=== PATIENT | female | born 1990 | race Two or more races ===

== ENCOUNTER → 2021-04-12 11:42 | Outpatient (CLI) | payer OTHER, SELFPAY ==
[2021-04-12 10:34] VITALS: BMI 34.0
[2021-04-12 12:18] LABS: Amphetamine Urine VISTA NEGATIVE (<1000 ng/mL); Barbiturate Urine VISTA NEGATIVE (< 200 ng/mL); Benzodiazepine Urine VISTA NEGATIVE (< 200 ng/mL); Cocaine Urine VISTA NEGATIVE (< 300 ng/mL); Ecstacy Urine VISTA NEGATIVE (< 500 ng/mL); Methadone Urine VISTA NEGATIVE (< 300 ng/mL); PCP Urine VISTA NEGATIVE (< 25 ng/mL); THC Urine VISTA NEGATIVE (< 50 ng/mL); Vista UDS pH Range 5
[2021-04-13 20:10] LABS: Chlamydia By Nucleic Acid AMP Negative (Negative)
[2021-04-14 15:00] LABS: Gonococcus By Nucleic Acid AMP Negative (Negative)
== END ==
PROVIDERS: Visit Provider Obstetrics & Gynecology
DX: Z34.00 Encounter for supervision of normal first pregnancy, unspecified trimester (principal)
CPT/HCPCS: 80307; 87086; 87088; 87491; 87591

== ENCOUNTER → 2021-04-23 07:37 | Outpatient (CLI) | payer OTHER, SELFPAY ==
[2021-04-12 10:34] VITALS: BMI 34.0
[2021-04-23 08:05] LABS: Absolute Lymphocyte Count 2.05 X10^3/uL (0.83-4.51); Absolute Neutrophil Count 7.5 X10^3/uL (2.0-7.7); Basophil# 0.03 X10^3/uL; Basophil% 0.3 % (0-1); Eosinophil# 0.09 X10^3/uL; Eosinophils% 0.9 % (0-5); Hematocrit 40.5 % (37-47); Hemoglobin 13.6 g/dL (12.0-15.0); Lymphocyte # 2.05 X10^3/ul (0.83-4.51); Lymphocyte % 19.9 % (19-41); Mean Corp Hgb Conc 33.6 g/dL (32-36); Mean Corpuscular Hgb 30.6 pg (27.0-32.0); Mean Corpuscular Volume 91.2 fL (81-99); Mean Platelet Vol. 9.6 fl (6.2-12.0); Monocyte# 0.55 X10^3/uL; Monocyte% 5.3 % (0-10); NRBC Flagged by Analyzer 0 % (0-5); Neutrophil # 7.52 X10^3/uL (2.7-7.7); Platelet Count 339 K/mm3 (150-450); RBC Distribution Width CV 12.1 % (11.6-14.6); RBC Distribution Width SD 40.6 fl (35.1-43.9); Red Blood Count 4.44 M/mm3 (4.2-5.4); White Blood Count 10.3 K/mm3 (4.4-11.0)
[2021-04-23 08:25] LABS: Glucose Challenge Gest 1H 50g 72 mg/dL (70-140)
[2021-04-23 08:56] LABS: NATERA MAILED SPECIMEN
[2021-04-23 09:20] LABS: HIV - WCH Non-Reactive (Nonreactive); Hepatitis B Surface Antigen Non-Reactive (Nonreactive); Hepatitis C Antibody Non-Reactive (Nonreactive); Rubella IgG Reactive (Nonreactive); Syphilis Antibodies Non-reactive
== END ==
PROVIDERS: PCP Family Medicine; Referring Provider Obstetrics & Gynecology; Visit Provider Obstetrics & Gynecology
DX: O99.210 Obesity complicating pregnancy, unspecified trimester (principal); E66.9 Obesity, unspecified; Z3A.00 Weeks of gestation of pregnancy not specified
CPT/HCPCS: 36415; 82950; 85025; 86703; 86762; 86780; 86803; 86850; 86900; 86901; 87340

== ENCOUNTER → 2021-08-06 07:51 | Outpatient (CLI) | payer OTHER, SELFPAY ==
[2021-08-06 08:17] LABS: Absolute Lymphocyte Count 1.79 X10^3/uL (0.83-4.51); Absolute Neutrophil Count 10.6 X10^3/uL (2.0-7.7); Basophil# 0.04 X10^3/uL; Basophil% 0.3 % (0-1); Eosinophil# 0.08 X10^3/uL; Eosinophils% 0.6 % (0-5); Hematocrit 34.2 % (37-47); Hemoglobin 11.7 g/dL (12.0-15.0); Lymphocyte # 1.79 X10^3/ul (0.83-4.51); Lymphocyte % 13.4 % (19-41); Mean Corp Hgb Conc 34.2 g/dL (32-36); Mean Corpuscular Hgb 31.3 pg (27.0-32.0); Mean Corpuscular Volume 91.4 fL (81-99); Mean Platelet Vol. 9.5 fl (6.2-12.0); Monocyte# 0.72 X10^3/uL; Monocyte% 5.4 % (0-10); NRBC Flagged by Analyzer 0 % (0-5); Neutrophil % 79.5 % (47-70); Platelet Count 358 K/mm3 (150-450); RBC Distribution Width CV 12.5 % (11.6-14.6); RBC Distribution Width SD 41.2 fl (35.1-43.9); Red Blood Count 3.74 M/mm3 (4.2-5.4); White Blood Count 13.3 K/mm3 (4.4-11.0)
[2021-08-06 08:45] LABS: Glucose Challenge Gest 1H 50g 81 mg/dL (70-140)
== END ==
PROVIDERS: PCP Family Medicine; Referring Provider Obstetrics & Gynecology; Visit Provider Obstetrics & Gynecology
DX: Z34.92 Encounter for supervision of normal pregnancy, unspecified, second trimester (principal); Z13.1 Encounter for screening for diabetes mellitus
CPT/HCPCS: 36415; 82950; 85025

== ENCOUNTER → 2021-09-27 07:57 | Outpatient (CLI) | payer OTHER, SELFPAY ==
--- NOTE | 2021-09-27 08:00 | US_ITS ---
STUDY: SECOND AND THIRD TRIMESTER OBSTETRICAL ULTRASOUND - LIMITED REASON FOR EXAM: Female, 30 years old uterine date size discrepancy LMP: 02/02/2021 PRIOR ULTRASOUND: None. TECHNIQUE: Transabdominal TECHNICAL QUALITY: Adequate. FINDINGS: There is a single intrauterine fetus. The fetus is in a breech presentation. There is demonstrated cardiac activity with a heart rate of 178 bpm. There is a normal amniotic fluid volume. The largest amniotic fluid pocket measures 7.4 cm. The amniotic fluid index (EDYTA) is 18.9 cm. The placenta is fundal in location. There are Grade 1 placental changes. The cervix measures 4.6 cm cm in length. BIOMETRY: BPD: 8.5 cm: 34 weeks, 2 days HC: 32.2 cm: 36 weeks, 2 days AC: 31.6 cm: 35 weeks, 3 days FL: 6.6 cm: 34 weeks, 1 days Age by LMP: 33 weeks, 6 days. CELY by LMP: 11/09/2021. age by current US: 35 weeks, 4 days. CELY by current US: 10/28/2021. Estimated weight: 2582 grams, +/- 387 grams, 78 percentile. Gender: US/OB Limited With Biometrics IMPRESSION: Living intrauterine of 35 weeks 4 days as described above Electronically Signed: Ari Ulloa MD at 9:13 EST Tel , Service support ,
== END ==
PROVIDERS: PCP Family Medicine; Referring Provider Obstetrics & Gynecology; Visit Provider Obstetrics & Gynecology
DX: O26.843 Uterine size-date discrepancy, third trimester (principal); Z3A.35 35 weeks gestation of pregnancy
CPT/HCPCS: 76816

== ENCOUNTER 2021-10-15 17:31 | Outpatient (CLI) | payer BC, SELFPAY | END 2021-10-15 23:59 | disposition short-term general hospital (02) | PROVIDERS: PCP Family Medicine; Referring Provider Obstetrics & Gynecology; Visit Provider Obstetrics & Gynecology | DX: Z34.01 Encounter for supervision of normal first pregnancy, first trimester (principal) | CPT/HCPCS: 87081 ==

== ENCOUNTER 2021-11-15 18:45 | Inpatient (IN) | payer BC, SELFPAY ==
[2021-11-15 19:15] VITALS: TEMP 36.2
[2021-11-15 19:19] VITALS: BP 143/81; PULSE 95
[2021-11-15 19:20] VITALS: BMI 39.4
[2021-11-15] MEDS: Lactated Ringers 1,000 ML 50 ML IV (19:27)
--- NOTE | 2021-11-15 19:50 | HP.PCM.OB_ITS ---
HPI - General General Date of Admission: 11/15/21 HPI Narrative MYLES MCCANN, is a 30 F who presents forIOL sec to postdates. she has had an uncomplicated with no vb lof admits good fm no regular ctx. Maternal Data Information CELY Calculator Estimated Delivery Date Method Current WG Current Estimate 11/09/21 LMP (Certain) 40w 6d Other Estimates 11/10/21 Ultrasound #1 40w 5d PFSH PFSH Medical History (Updated 11/15/21 @ 19:[address] Adry Ponce MD) Headache Home Medications prenat.vits,veronique,wxr-cxaz-[id number] 1 tab PO DAILY 03/30/21 [History Last Taken 11/15/21] Allergy/AdvReac Type Severity Reaction Status Date / Time No Known Allergies Allergy Verified 11/12/21 09:19 Family History Grandfather CVA (cerebral vascular accident) Surgical History (Updated 11/15/21 @ 19:34 by Kimberly Park) Previous back surgery [place] teeth extracted Social History household members: spouse number of children: 0 current occupational status: employed current occupation: [employer]fund[employer] pets and animals: Yes pets and animals: dog(s) Smoking Status: Never smoker alcohol intake: current details: not while substance use type: does not use History 1 Elective abortions Hx Para 0 Spontaneous abortions Hx # Term Pregnancies Ectopic pregnancies Hx # Pregnancies Multiple births # of living children Visit Details Expected Delivery Route/Plan Labor Preferences- CB/BF classes: september labor support person: Keanu labor intervention preferences: limited intervention pain management options preferred: limited intervention cut cord/dad catch: yes : yes PP control planned: discussed/pill discussed possible routes of delivery and associated risks: [] special requests: [] Plans covid vaccine: vaccinated flu vaccine: given tdap vaccine: given rhogam: na LARC form signed: declined movement and labor precautions reviewed. Problem list reviewed and updated with the most current plan of care details and appropriate orders placed. Relevant counseling for the gestational age provided. Continue routine care and follow up unless otherwise noted in visit notes/problem list details OB Flowsheet Initial Weight: 180 lb Date -?-?-?-?-?-?-?-?-?-?-?-?- EGA Weight BP Urine Prot -?-?-?-?-?-?-?-?-?-?-?-?- Glucose FHR FuHt Pres Dilation -?-?-?-?-?-?-?-?-?-?-?-?- Effaced St Visit Note 04/12/21 -?-?-?-?-?-?-?-?-?-?-?-?- 9w 6d 180 lb 2 oz (+2 oz) 120/82 -?-?-?-?-?-?-?-?-?-?-?-?- 180 -?-?-?-?-?-?-?-?-?-?-?-?- GP - CRL consist ent with LMP and prior US 05/10/21 -?-?-?-?-?-?-?-?-?-?-?-?- 13w 6d 180 lb 2 oz (+2 oz) 136/92 Negative -?-?-?-?-?-?-?-?-?-?-?-?- Negative 155 -?-?-?-?-?-?-?-?-?-?-?-?- GP - no cramping or bleeding. Had migraine. Also having increased nausea. Prescribed phenergan. Discussed magnesium supplement 06/11/21 -?-?-?-?-?-?-?-?-?-?-?-?- 18w 3d 183 lb 6 oz (+3 lb 6 oz) 132/92 Negative -?-?-?-?-?-?-?-?-?-?-?-?- Negative 150 -?-?-?-?-?-?-?-?-?-?-?-?- GP - no cramping or bleeding. +FM. Anatomy scheduled with MFM. 07/08/21 -?-?-?-?-?-?-?-?-?-?-?-?- 22w 2d 183 lb (+3 lb) 120/86 Negative -?-?-?-?-?-?-?-?-?-?-?-?- Negative 150 -?-?-?-?-?-?-?-?-?-?-?-?- SM- been checkin g bps at home and WNL. no cHTN. has lowered salt in her diet. 08/06/21 -?-?-?-?-?-?-?-?-?-?-?-?- 26w 3d 188 lb (+8 lb) 122/78 -?-?-?-?-?-?-?-?-?-?-?-?- 140 26 -?-?-?-?-?-?-?-?-?-?-?-?- SM- no vb lof go od fm n oregular ctx cbc gct tdap flu vaccine today 09/03/21 -?-?-?-?-?-?-?-?-?-?-?-?- 30w 3d 196 lb 6 oz (+16 lb 6 oz) 136/80 Negative -?--?-?-?-?-?-?-?-?-?-?-?- Negative 143 31 -?-?-?-?-?-?-?-?-?-?-?-?- JV- no lof, vagi nal bleeding, cramping, or dec fm. Some pubic bone pain. Has small umbilical hernia with likely small amount of fat. pt reassured. 09/17/21 -?-?-?-?-?-?-?-?-?-?-?-?- 32w 3d 198 lb 2 oz (+18 lb 2 oz) 118/68 Negative -?--?-?-?-?-?-?-?-?-?-?-?- Negative 140 35 -?-?-?-?-?-?-?-?-?-?-?-?- SM- no vb lof go od fm no regular ctx growth us ordered to evaluate 09/29/21 -?-?-?-?--?-?-?-?-?-?-?-?- 34w 1d 197 lb 6 oz (+17 lb 6 oz) 126/80 Negative -?-?-?-?-?-?-?-?-?-?-?-?- Negative 154 35 Breech -?-?-?-?-?-?--?-?-?-?-?-?- MH-Good FM. No LOF, VB. No CTX. Still breech/confirmed per US 09/27. Normal growth at 70%. If CS would like 11/23/21. Can discuss with JV next visit. 10/15/21 -?-?-?-?-?-?-?-?-?-?-?-?- 36w 3d 202 lb (+22 lb) 130/88 Negative -?-?-?-?-?-?-?-?-?-?-?-?- Negative 145 36 Transverse -?-?-?-?-?-?-?-?-?-?-?-?- JV- no lof, vagi nal bleeding, or dec fm. GBS collected. 10/22/21 -?-?-?-?-?-?-?-?-?-?-?-?- 37w 3d 200 lb 4 oz (+20 lb 4 oz) 120/78 Negative -?-?-?-?-?-?-?-?-?-?-?-?- Negative 154 37 Cephalic -?-?-?-?-?-?-?-?-?-?-?-?- JV- no lof, vagi nal bleeding, or dec fm. will check again next visit with bedside us 10/29/21 -?-?-?-?-?-?-?-?-?-?-?-?- 38w 3d 203 lb (+23 lb) 130/78 Negative -?-?-?-?-?-?-?-?-?-?-?-?- Negative 145 38 Cephalic -?-?-?-?-?-?-?-?-?-?-?-?- Sm- no vb lof go od fm nor egular ctx 11/05/21 -?-?-?-?-?-?-?-?-?-?-?-?- 39w 3d 201 lb 2 oz (+21 lb 2 oz) 120/82 Negative -?-?-?-?-?-?-?-?-?-?-?-?- Negative 140 39 Cephalic -?-?-?-?-?-?-?-?-?-?-?-?- SM- no vb lof go od fm no regular ctx 11/12/21 -?-?-?-?-?-?-?-?-?-?-?-?- 40w 3d 204 lb 4 oz (+24 lb 4 oz) 117/79 Negative -?-?-?-?-?-?-?-?-?-?-?-?- Negative 134 40 Cephalic 0 -?-?-?-?-?-?-?-?-?-?-?-?- 50 -3 JV- head position was a bit off midline, however when the baby was shifted to the left the head was immediately vtx. setting up IOL for monday night .if converts to transverse, pt understands will need section. 11/15/21 -?-?-?-?-?-?-?-?-?-?-?-?- 40w 6d 209 lb (+29 lb) 143/81 -?-?-?-?-?-?-?-?-?-?-?-?- -?-?-?-?-?-?-?-?-?-?-?-?- NST FHR Rate Baby A Baseline: 130 Variability:: Moderate Accelerations:: 15 x 15 Decelerations:: None NST Reactive:: Yes FHR Category:: Category I Uterine Activity:: irregular ROS Constitutional Constitutional: Reports systems reviewed and no addt'l complaints, except as documented Eyes Eyes: Denies change in vision ENT HEENT: Reports systems reviewed and no addt'l complaints, except as documented; Denies headache(s) Cardiovascular Cardiovascular: Reports systems reviewed and no addt'l complaints, except as documented; Denies chest pain or dyspnea Respiratory/Chest Respiratory/Chest: Reports systems reviewed and no addt'l complaints, except as documented Gastrointestinal Gastrointestinal: Reports systems reviewed and no addt'l complaints, except as documented; Denies abdominal pain Genitourinary Genitourinary: Reports systems reviewed and no addt'l complaints, except as documented, contractions Details: present (irregular) and movement Details: present; Denies dysuria or genital lesions Musculoskeletal Musculoskeletal: Reports systems reviewed and no addt'l complaints, except as documented Neurologic Neurologic: Reports systems reviewed and no addt'l complaints, except as documented Endocrine Endocrinology: Reports systems reviewed and no addt'l complaints, except as documented Vital Signs Vital Signs Vital Signs: 11/15/21 19:15 11/15/21 19:19 Temperature 97.1 F L Temperature Source Temporal Pulse Rate 95 Blood Pressure 143/81 H BP Systolic 143 BP Diastolic 81 Weight Weight: 209 lb Body Mass Index (BMI) 39.4 Physical Exam Const alert, oriented x3, no apparent distress and healthy appearing HEENT normocephalic and moist oral mucous membranes Head and Scalp: atraumatic Neck full ROM, no lymphadenopathy, supple and thyroid normal General: trachea midline Lymph Lymphatic: no lymphadenopathy noted Chest inspection of chest normal Resp normal respiratory effort Cardio regular rate GI normal to inspection, nondistended, normoactive bowel sounds, soft to palpation and non-tender Inspection: gravid external exam normal Manual OB Exam: estimated gestational size appropriate, presentation cephalic, dilated, effaced and station Extremity normal to inspection General Extremity: Negative for edema Skin no rashes or lesions noted Neuro no focal motor deficits and deep tendon reflexes 2+ bilaterally Motor Exam: strength 5/5 throughout and clonus absent Psych mental status grossly normal Labs Labs Labs: Blood Type AB POSITIVE Antibody Screen NEGATIVE Hct 34.2 % (37-47) L Hgb 11.7 g/dL (12.0-15.0) L Obstetrics US Syphilis Total Ab Non-reactive Rubella IgG Antibody Reactive (Nonreactive) Hep Bs Antigen Non-Reactive (Nonreactive) Neisseria gonorrhoeae DNA (JONN) Negative (Negative) HIV 1&2 Antibody Non-Reactive (Nonreactive) Glucose 1 Hr 50 gm 81 mg/dL (70-140) Assessment & Plan (1) : QUALIFIERS: Weeks of gestation: 40 weeks Qualified Code(s): Z3A.40 - 40 weeks gestation of COMMENT: NIPT low risk, carrier neg , anatomy nl repeat heart views nl (2) Supervision of normal first : QUALIFIERS: Trimester: first trimester Qualified Code(s): Z34.01 - Encounter for supervision of normal first , first trimester COMMENT: PRR CELY:11/09/21 girl [place] Spouse:Keanu (3) Hx of spinal fusion: COMMENT: L5 fusion due to herniated disc; If CS will she need anesthesia consult? (4) Uterine size date discrepancy: COMMENT: growth normal on 09/27/21 (5) Encounter for induction of labor: COMMENT: cytotec IOL, epi PRN. pit per protocol after cytotec
[2021-11-15 20:12] LABS: Absolute Lymphocyte Count 2.28 X10^3/uL (0.83-4.51); Absolute Neutrophil Count 9.7 X10^3/uL (2.0-7.7); Basophil# 0.05 X10^3/uL; Basophil% 0.4 % (0-1); Eosinophil# 0.05 X10^3/uL; Eosinophils% 0.4 % (0-5); Hematocrit 35.9 % (37-47); Hemoglobin 12.2 g/dL (12.0-15.0); Lymphocyte # 2.28 X10^3/ul (0.83-4.51); Lymphocyte % 17.7 % (19-41); Mean Corpuscular Hgb 30.5 pg (27.0-32.0); Mean Corpuscular Volume 89.8 fL (81-99); Mean Platelet Vol. 10.9 fl (6.2-12.0); Monocyte% 5.4 % (0-10); NRBC Flagged by Analyzer 0 % (0-5); Neutrophil # 9.67 X10^3/uL (2.7-7.7); Neutrophil % 75.3 % (47-70); Platelet Count 323 K/mm3 (150-450); RBC Distribution Width CV 13.6 % (11.6-14.6); RBC Distribution Width SD 44.4 fl (35.1-43.9); White Blood Count 12.9 K/mm3 (4.4-11.0)
[2021-11-15 20:28] VITALS: BP 134/87; PULSE 88; O2SAT 97
[2021-11-15] MEDS: miSOPROStol 25 MCG TABLET VAGINAL (20:28)
[2021-11-15 20:29] VITALS: TEMP 36.2
[2021-11-15] MEDS: DiphenhydrAMINE 25 MG Capsule PO (20:38)
[2021-11-15] MEDS: Acetaminophen 500 MG Tablet PO (20:38)
[2021-11-15 20:54] LABS: ALB/GLOB Ratio 0.7 RATIO (0.9-2.4); AST(SGOT) 15 U/L (15-37); Alanine Aminotransfer ALT/SGPT 12 U/L (13-56); Albumin, Serum 2.5 g/dL (3.2-5.0); Alkaline Phosphatase 208 U/L (45-117); Anion Gap 8 (5-15); BUN 9 mg/dL (7-18); BUN/Creat Ratio 17.3 RATIO (10-20); Calcium,Total 8.8 mg/dL (8.5-10.1); Chloride 108 mmol/L (98-107); Creatinine, Serum 0.52 mg/dL (0.55-1.02); EST Glomerular Filtration Rate 148 mL/min (>60); Est Glom Filt Rate - Afr Amer 179 mL/min (>60); Estimated Creatinine Clearance 121.54 ml/min; Globulin 3.7 g/dL (2.2-4.2); Glucose 116 mg/dL (74-106); Potassium 3.5 mmol/L (3.5-5.1); Protein, Total 6.2 g/dL (6.4-8.2); Sodium Level 138 mmol/L (136-145)
[2021-11-16] VITALS (92 sets, daily range): BP systolic 76–139; BP diastolic 46–90; PULSE 68–146; RESP 20; TEMP 36.2–37.6; O2SAT 83–100
[2021-11-16] MEDS: miSOPROStol 25 MCG TABLET 50 MCG VAGINAL (00:34)
[2021-11-16 04:26] LABS: ROM Internal Control Test YES-OK TO RESULT pt. (Internal QC)
[2021-11-16 04:27] LABS: ROM Patient Test POSITIVE (Negative)
[2021-11-16] MEDS: 0.9% Saline Lock 10 ML Syringe IV (05:22)
[2021-11-16] MEDS: Lactated Ringers 500 ML 999 ML IV ×8 (05:47→20:22)
[2021-11-16] MEDS: fentaNYL 100 MCG/2 ML Ampul IV ×2 (06:58→11:45)
[2021-11-16] MEDS: Lactated Ringers 1,000 ML 200 ML IV ×2 (12:01→18:06)
[2021-11-16] MEDS: Amnioinfusion- 0.9% NS 1,000 ML IV.SOLN. 1000 ML INTRA-UTER (12:24)
[2021-11-16] MEDS: ePHEDrine Sulfate 50 MG/ML Ampul 10 MG IV (13:25)
[2021-11-16] MEDS: ePHEDrine Sulfate 50 MG/ML Ampul 10 MG IM (13:25)
[2021-11-16] MEDS: fentaNYL-bupivacaine (epidural) 100 ML BAG EPIDURAL ×3 (13:32→21:55)
--- NOTE | 2021-11-16 16:04 | PN.OBGYN_ITS ---
Subjective Subjective Discussed starting Pitocin due to stalling of labor progress and patient comfortable with epidural. Previously reassuring heart rate tracing. Now heart rate tracing developing recurrent late decelerations with rising baseline. Patient has received IV fluid boluses well give oxygen and do position changes. Has received amnioinfusion. resolution of decels with interventions and will start pitocin afterwards. Objective Data Objective Data Vital Signs: Vital Signs Temp Pulse BP Pulse Ox 98.3 F 112 H 112/62 99 11/16/21 15:13 11/16/21 15:13 11/16/21 15:13 11/16/21 15:11 Weight: 209 lb Body Mass Index (BMI) 39.4 Intake & Output: Intake and Output for Last 24 Hours 11/14/21 11/15/21 11/16/21 23:59 23:59 23:59 Intake Total 51.67 / 51.67 4089.17 / 4089.17 Balance 51.67 / 51.67 4089.17 / 4089.17 Lab / Micro Data Result Diagrams: 11/15/21 19:27 11/15/21 19:27 Labs: Laboratory Results - last 24 hr 11/15/21 19:27: WBC 12.9 H, RBC 4.00 L, Hgb 12.2, Hct 35.9 L, MCV 89.8, MCH 30.5, MCHC 34.0, RDW Std Deviation 44.4 H, RDW Coeff of Patrice 13.6, Plt Count 323, MPV 10.9, Immature Gran % (Auto) 0.800, Neut % (Auto) 75.3 H, Lymph % (Auto) 17.7 L, [place] % (Auto) 5.4, Eos % (Auto) 0.4, Baso % (Auto) 0.4, Absolute Neuts (auto) 9.7 H, Absolute Lymphs (auto) 2.28, Nucleated RBC % 0 11/15/21 19:27: Blood Type AB POSITIVE, Antibody Screen NEGATIVE 11/15/21 19:27: Sodium 138, Potassium 3.5, Chloride 108 H, Carbon Dioxide 22.0, Anion Gap 8, BUN 9, Creatinine 0.52 L, Estim Creat Clear Calc 121.54, Est GFR (MDRD) Af Amer 179, Est GFR (MDRD) Non-Af 148, BUN/Creatinine Ratio 17.3, Glucose 116 H, Calcium 8.8, Total Bilirubin 0.20, AST 15, ALT 12 L, Alkaline Phosphatase 208 H, Total Protein 6.2 L, Albumin 2.5 L, Globulin 3.7, Albumin/Globulin Ratio 0.7 L 11/16/21 04:12: Vag Amniotic Fld Detect POSITIVE H Micro: Microbiology 11/15/21 19:35 Nasal Secretion SARS-CoV-2 Antigen (Rapid) - Final
[2021-11-16] MEDS: Oxytocin 30 units/NS 500 ml 30 UNITS/500 ML IV.SOLN IV (18:17)
--- NOTE | 2021-11-16 22:49 | PN.OBGYN_ITS ---
Subjective Subjective Patient requesting to proceed with primary . No cervical change for over 6 hours. Pitocin has been on and has been able to be increased but still now further cervical change. Patient was 5 cm as of 8 AM this morning and 6 cm as of this afternoon and has not made any changes since. It was discussed expec tant management versus proceeding with primary and patient wishes to proceed with primary . I suspect cephalopelvic disproportion and would recommend repeat section for any future deliveries. Objective Data Objective Data Vital Signs: Vital Signs Temp Pulse BP Pulse Ox 98.3 F 111 H 111/59 L 98 11/16/21 19:36 11/16/21 22:02 11/16/21 22:02 11/16/21 22:00 Weight: 209 lb Body Mass Index (BMI) 39.4 Intake & Output: Intake and Output for Last 24 Hours 11/14/21 11/15/21 11/16/21 23:59 23:59 23:59 Intake Total 51.67 / 51.67 6184.90 / 6184.90 Output Total 2225 / 2225 Balance 51.67 / 51.67 3959.90 / 3959.90 Lab / Micro Data Result Diagrams: 11/15/21 19:27 11/15/21 19:27 Labs: Laboratory Results - last 24 hr 11/16/21 04:12: Vag Amniotic Fld Detect POSITIVE H Micro: Microbiology 11/15/21 19:35 Nasal Secretion SARS-CoV-2 Antigen (Rapid) - Final
--- NOTE | 2021-11-16 22:52 | EX.PCM.OBRPT ---
Maternal Data Information CELY Calculator Estimated Delivery Date Method Current WG Current Estimate 11/09/21 LMP (Certain) 41w 0d Other Estimates 11/10/21 Ultrasound #1 40w 6d Final CELY Source: LMP Gestational age: 39 Details Operative Information Date of Procedure: 11/16/21 Pre-Operative Diagnosis: failure to progress Post-Operative Diagnosis: same Indications for : Failure to Progress (6 cm -3 station) Procedure Type: low transverse Type of Anesthesia: Epidural Special Medications: none Drain: Avenda[place] to straight drain Fluids Replaced: crystalloid Findings Description of Procedure: The patient was placed in the dorsal supine position with leftward tilt. Patient was prepped and draped in the normal sterile fashion. Pfannenstiel skin incision was made with the scalpel and carried through to the underlying layer of fascia with the scalpel. Fascia was nicked in the midline and the incision extended laterally. The rectus bellies were dissected off superiorly and inferiorly with out complication both sharply and bluntly. The peritoneum was entered digitally. The incision was stretched and a low transverse uterine incision was made with the scalpel. The 's head was delivered atraumatically followed by the anterior and posterior shoulders without complication the rest of the delivered. The cord was clamped and cut and the was handed off to awaiting nurse. The placenta was delivered spontaneously immediately following and was noted to be intact and have a three-vessel cord. The uterus was exteriorized cleared of all clots and debris, and the incision was closed in a double layer closure using #1 Monocryl. The ovaries and fallopian tubes were noted to be within normal limits. The uterus was returned to the maternal abdomen and gutters were cleared of all clots and debris. The peritoneum was closed with 3-0 Monocryl in a running fashion. Gloves were changed prior to fascial closure. Fascia was closed with 0 PDS in a running fashion. Subcutaneous tissue was copiously irrigated and the skin was closed with 3-0 Monocryl in a subcuticular fashion. Mepilex dressing was applied without complication. Patient was taken to recovery in stable condition. It was discussed with the patient that based on the clinical information obtained during this encounter, combined with her history, at this time I would recommend cesareans for future deliveries if further pregnancies are desired. Amniotic Membrane Rupture Type: Artificial Amniotic Fluid Description: Clear Placental Delivery Description: Spontaneous Placenta Disposition: [facility] Cord Vessel Description: 3 Vessels Cord Entanglement: None Delayed Cord Clamping: Yes Complications Risks of Surgery Discussed w/Patient: Bleeding, Infection, Need for Future C-Sections and Injury to surrounding structure(s) including bowel and bladder Complications: none Admit VTE Documentation VTE Present on Admission: No VTE Mechan Device Prophylaxis: SCD's Procedures Urinary/Genital [id number]: [id number] Delivery [facility]
--- NOTE | 2021-11-16 22:55 | PCM.DC ---
Discharge Instructions Diet Discharge Diet: No restrictions Activity Discharge Activity: May Not Drive (for 2 weeks or while taking narcotic pain medications.), May Shower and May Take a Tub Bath (in 7 days) May shower in (days): 0 May resume sexual activity in: 4-6 weeks Weight Bearing Status: Full weight bearing Lifting Restrictions: 20 pounds Dressing / Incision Call your doctor if your incision/area has: Continuous Slow Oozing, Sudden Increased Bleeding, Increased Pain/ Swelling, Increased Redness and Foul Smelling Discharge Call your doctor if you observe: Fever of 101 or Higher and Using more than 1 pad per hour (for 2 hours) Suture Line Care: Avoid Pulling/Pushing and Avoid Pinching/Bending Cleanse incision/area with: Soap & Water and Keep Dressing Clean & Dry Follow Up Care Please Follow Up With: Adry Ponce MD When: Call [phone] to make an appointment for an incision check in 1-2 weeks. Test Results: Test results from this visit will be discussed in further detail at your follow-up appointment, if applicable. Discharge Plan Admission Admit Date/Time: 11/15/21 18:45 Attending Provider: Adry Ponce Primary Care Provider: Benoit Emanuel Discharge Orders/Prescriptions Prescriptions: New oxycodone-acetaminophen [Endocet] 5-325 mg tablet 1 tab PO Q4H PRN (Reason: pain) 7 Days Qty: 20 RF: 0 naproxen 250 MG tablet 250 - 500 mg PO Q8H PRN PRN (Reason: MILD PAIN) Qty: 30 RF: 1 Continued prenat.vits,veronique,[id number] Tablet 1 tab PO DAILY RF: 0 Referrals / Follow Up: Benoit Emanuel DO [Primary Care Provider] - Disposition Disposition (needs filled in before D/C Order can be placed): Home, Self Care
[2021-11-16] MEDS: Acetaminophen 500 MG Tablet PO (23:05)
[2021-11-16] MEDS: Sodium Citrate/Citric Acid 30 ML UDC PO (23:05)
[2021-11-16] MEDS: Cefazolin 2 GM in 0.9% Normal Saline 100 ML IV (23:20)
[2021-11-17] VITALS (22 sets, daily range): BP systolic 99–124; BP diastolic 49–87; PULSE 66–122; RESP 13–22; TEMP 36.6–38.2; O2SAT 95–100
[2021-11-17] MEDS: Oxytocin 30 units/NS 500 ml 30 UNITS/500 ML IV.SOLN 167 UNITS IV (00:35)
[2021-11-17] MEDS: Ketorolac 30 MG/ML Syringe IV ×4 (01:15→18:22)
[2021-11-17] MEDS: 0.9% Saline Lock 10 ML Syringe IV ×3 (01:15→18:23)
--- NOTE | 2021-11-17 02:15 | NURSING ---
epidural catheter removed at this time tip intact, pt tolerated well, rated pain 0/10, band aid applied
[2021-11-17] MEDS: Lactated Ringers 1,000 ML 100 ML IV (03:40)
[2021-11-17] MEDS: Acetaminophen 500 MG Tablet 1000 MG PO ×4 (04:26→23:18)
--- NOTE | 2021-11-17 07:35 | NURSING ---
bedside report given to Shayy Wilde RN who is assuming care of pt at this time
--- NOTE | 2021-11-17 07:56 | PCM.PN.OB ---
Subjective Subjective Patient doing well without complaints. Tolerating PO. Up in chair. Jarocho gates dc'd. Feeding well. Denies chest pain, shortness of breath, calf pain/swelling, fevers, chills, lightheadedness. Objective Data Objective Data Vital Signs: Vital Signs Temp Pulse Resp BP Pulse Ox 98.2 F 71 18 112/71 97 11/17/21 06:24 11/17/21 06:24 11/17/21 06:24 11/17/21 06:24 11/17/21 06:24 Oxygen Delivery Method Room Air Weight: 209 lb Body Mass Index (BMI) 39.4 Intake & Output: Intake and Output for Last 24 Hours 11/15/21 11/16/21 11/17/21 23:59 23:59 23:59 Intake Total 51.67 / 51.67 6693.57 / 6693.57 1173.33 / 1173.33 Output Total 2225 / 2225 2009 Balance 51.67 / 51.67 4468.57 / 4468.57 -836.67 / -836.67 Lab / Micro Data Result Diagrams: 11/15/21 19:27 11/15/21 19:27 Micro: Microbiology 11/15/21 19:35 Nasal Secretion SARS-CoV-2 Antigen (Rapid) - Final Physical Exam Const alert and oriented x3 HEENT normocephalic Eyes PERRL Neck full ROM Resp normal respiratory effort GI soft to palpation GI Narrative: FF below U. Dressing dry and intact Palpation: tender other (appropriately) Assessment & Plan (1) delivery delivered: COMMENT: LTCS CPD FTP 6 cm SM girl omid PLAN: s/p LTCS PPD # 1 1. routine post care 2. breast feeding- support given 3. rh positive 4. rubella immune
[2021-11-17] MEDS: Senna/Docusate Sodium 1 Tablet PO (11:29)
[2021-11-17] MEDS: Enoxaparin 40 MG/0.4 ML Syringe SC (11:29)
[2021-11-17 13:24] LABS: Hematocrit 32.4 % (37-47); Hemoglobin 11.2 g/dL (12.0-15.0); Mean Corp Hgb Conc 34.6 g/dL (32-36); Mean Corpuscular Hgb 31.5 pg (27.0-32.0); Mean Corpuscular Volume 91.3 fL (81-99); Mean Platelet Vol. 10.8 fl (6.2-12.0); Platelet Count 246 K/mm3 (150-450); RBC Distribution Width CV 13.8 % (11.6-14.6); RBC Distribution Width SD 46.5 fl (35.1-43.9); Red Blood Count 3.55 M/mm3 (4.2-5.4); White Blood Count 21.5 K/mm3 (4.4-11.0)
--- NOTE | 2021-11-17 20:02 | NURSING ---
JV contacted to report WBC 21.1 today with CBC after surgery. this RN inquiring about whether okay to remove IV. JV states to obtain repeat CBC in AM and take IV out at this time.
[2021-11-18 00:13] VITALS: BP 108/69; PULSE 78; RESP 14; TEMP 36.9; O2SAT 97
[2021-11-18] MEDS: Naproxen 500 MG Tablet PO ×2 (01:11→08:50)
[2021-11-18] MEDS: Acetaminophen 500 MG Tablet 1000 MG PO ×2 (04:52→11:11)
[2021-11-18 04:54] VITALS: BP 118/76; PULSE 79; RESP 16; TEMP 36.9
[2021-11-18 05:24] LABS: Absolute Neutrophil Count 15.4 X10^3/uL (2.0-7.7); Basophil# 0.06 X10^3/uL; Basophil% 0.3 % (0-1); Eosinophil# 0.11 X10^3/uL; Eosinophils% 0.6 % (0-5); Hemoglobin 10.5 g/dL (12.0-15.0); Lymphocyte % 12.3 % (19-41); Mean Corp Hgb Conc 33.9 g/dL (32-36); Mean Corpuscular Hgb 31.3 pg (27.0-32.0); Mean Corpuscular Volume 92.5 fL (81-99); Mean Platelet Vol. 10.7 fl (6.2-12.0); Monocyte# 1.32 X10^3/uL; Monocyte% 6.8 % (0-10); NRBC Flagged by Analyzer 0 % (0-5); Neutrophil % 79.1 % (47-70); Platelet Count 239 K/mm3 (150-450); RBC Distribution Width CV 14.1 % (11.6-14.6); RBC Distribution Width SD 47.5 fl (35.1-43.9); Red Blood Count 3.35 M/mm3 (4.2-5.4); White Blood Count 19.5 K/mm3 (4.4-11.0)
[2021-11-18 08:31] VITALS: BP 120/77; PULSE 75; RESP 16; TEMP 36.8; O2SAT 95
[2021-11-18] MEDS: Enoxaparin 40 MG/0.4 ML Syringe SC (08:50)
[2021-11-18] MEDS: Senna/Docusate Sodium 1 Tablet PO (08:50)
[2021-11-18 14:27] VITALS: BP 123/85; PULSE 72; RESP 16; TEMP 36.8; O2SAT 97
--- NOTE | 2021-11-18 14:29 | PCM.PN.OB ---
Subjective Subjective Patient doing well without complaints. Tolerating PO. Ambulating and voiding without difficulty. feeding well. Denies chest pain, shortness of breath, calf pain/swelling, fevers, chills, lightheadedness. Objective Data Objective Data Vital Signs: Vital Signs Temp Pulse Resp BP Pulse Ox 98.2 F 75 16 120/77 95 11/18/21 08:31 11/18/21 08:31 11/18/21 08:31 11/18/21 08:31 11/18/21 08:31 Oxygen Delivery Method Room Air Weight: 209 lb Body Mass Index (BMI) 39.4 Intake & Output: Intake and Output for Last 24 Hours 11/16/21 11/17/21 11/18/21 23:59 23:59 23:59 Intake Total 6693.57 / 6693.57 1173.33 / 1173.33 Output Total 2225 / 2225 2510 / 2510 Balance 4468.57 / 4468.57 -1336.67 / -1336.67 Lab / Micro Data Result Diagrams: 11/18/21 05:00 11/15/21 19:27 Labs: Laboratory Results - last 24 hr 11/18/21 05:00: WBC 19.5 H, RBC 3.35 L, Hgb 10.5 L, Hct 31.0 L, MCV 92.5, MCH 31.3, MCHC 33.9, RDW Std Deviation 47.5 H, RDW Coeff of Patrice 14.1, Plt Count 239, MPV 10.7, Immature Gran % (Auto) 0.900, Neut % (Auto) 79.1 H, Lymph % (Auto) 12.3 L, [place] % (Auto) 6.8, Eos % (Auto) 0.6, Baso % (Auto) 0.3, Absolute Neuts (auto) 15.4 H, Absolute Lymphs (auto) 2.40, Nucleated RBC % 0 Micro: Microbiology 11/15/21 19:35 Nasal Secretion SARS-CoV-2 Antigen (Rapid) - Final ROS Constitutional Constitutional: Reports systems reviewed and no addt'l complaints, except as documented Cardiovascular Cardiovascular: Reports systems reviewed and no addt'l complaints, except as documented Respiratory/Chest Respiratory/Chest: Reports systems reviewed and no addt'l complaints, except as documented Gastrointestinal Gastrointestinal: Reports systems reviewed and no addt'l complaints, except as documented Physical Exam Const alert, oriented x3 and no apparent distress HEENT Head and Scalp: atraumatic Resp normal respiratory effort GI soft to palpation and non-tender Inspection: incision intact, healing well and drainage (none) Bimanual Exam - Vag & Uterus: uterus non-tender Uterus Palpation: uterus fundus firm (below Umbilicus) Assessment & Plan (1) delivery delivered: COMMENT: LTCS CPD FTP 6 cm SM girl omid
--- NOTE | 2021-11-18 14:32 | NURSING ---
this RN has reviewed and agrees with all charting by SN Yanna
--- NOTE | 2021-11-18 17:20 | PCM.DC.SUM ---
Providers Date of Admission: 11/15/21 Primary Care Physician: Dr. Benoit Emanuel DO Reason For Visit: PRIMARY C SECTION Diagnosis Discharge Diagnosis (1) delivery delivered: Status: Acute Code(s): O82 - Encounter for delivery without indication Medications at Discharge Home Medications prenat.vits,veronique,ncw-obkv-hpjje 1 tab PO DAILY 03/30/21 naproxen 250 - 500 mg PO Q8H PRN PRN #30 tab 11/16/21 oxycodone-acetaminophen [Endocet] 1 tab PO Q4H PRN 7 Days #20 tab 11/16/21 Hospital Course Operations - ( section ) Summary of Care Provided Hospital Course: The patient was admitted on 11/15/2021 for induction of labor and ended up with a failed induction and section by Dr. Ponce on 11/16/2021. On post operative day #1 she was ambulating and pain was improving with PO medication. On post operative day #2 she requested discharge to home. Weight / BMI Weight Weight: 209 lb Body Mass Index (BMI) 39.4 ABG / Lab / Microbiology Data Result Diagrams: 11/18/21 05:00 11/15/21 19:27 Microbiology: Microbiology 11/15/21 19:35 Nasal Secretion SARS-CoV-2 Antigen (Rapid) - Final D/C Instructions Discharge Diet: No restrictions May shower in (days): 0 May resume sexual activity in: 4-6 weeks Weight Bearing Status: Full weight bearing Call your doctor if your incision/area has: Continuous Slow Oozing, Sudden Increased Bleeding, Increased Pain/ Swelling, Increased Redness and Foul Smelling Discharge Call your doctor if you observe: Fever of 101 or Higher and Using more than 1 pad per hour (for 2 hours) Suture Line Care: Avoid Pulling/Pushing and Avoid Pinching/Bending Cleanse incision/area with: Soap & Water and Keep Dressing Clean & Dry Please Follow Up With: Adry Ponce MD When: Call [phone] to make an appointment for an incision check in 1-2 weeks. Meaningful Use Info Meaningful Use Diagnoses (Choose all that apply): None applicable Discharge Plan Admission Admit Date/Time: 11/15/21 18:45 Primary Reason for Your Visit: induction of labor and section Attending Provider: Adry Ponce Primary Care Provider: Benoit Emanuel Instructions Patient Instructions: After a Discharge Orders/Prescriptions Prescriptions: New oxycodone-acetaminophen [Endocet] 5-325 mg tablet 1 tab PO Q4H PRN (Reason: pain) 7 Days Qty: 20 RF: 0 naproxen 250 MG tablet 250 - 500 mg PO Q8H PRN PRN (Reason: MILD PAIN) Qty: 30 RF: 1 Continued prenat.vits,veronique,stg-nyzc-jorkc Tablet 1 tab PO DAILY RF: 0 Referrals / Follow Up: Benoit Emanuel, [Primary Care Provider] - Disposition Disposition (needs filled in before D/C Order can be placed): Home, Self Care
== END 2021-11-18 14:57 | disposition home or self-care (01) | DRG 788 ==
PROVIDERS: Obstetrics & Gynecology; Admitting Provider Obstetrics & Gynecology; PCP Family Medicine; Visit Provider Obstetrics & Gynecology
DX: O76 Abnormality in fetal heart rate and rhythm complicating labor and delivery (principal); O99.214 Obesity complicating childbirth; E66.01 Morbid (severe) obesity due to excess calories; O62.2 Other uterine inertia; O26.843 Uterine size-date discrepancy, third trimester; O48.0 Post-term pregnancy; Z98.1 Arthrodesis status; Z3A.40 40 weeks gestation of pregnancy; Z37.0 Single live birth
CPT/HCPCS: 59025; 59050; 76815; 80053; 84112; 85025; 85027; 86850; 86900; 86901; 87426; 99218; J7030; J7120; A4216; G0378; J2405

== ENCOUNTER 2021-12-27 16:16 | Outpatient (CLI) | payer BC, SELFPAY ==
[2022-01-03 20:33] LABS: HPV Reflexed? NOT INDICATED
== END 2021-12-27 23:59 | disposition home or self-care (01) ==
LOC: LABSPEC 16:17
PROVIDERS: PCP Family Medicine; Referring Provider Obstetrics & Gynecology; Visit Provider Obstetrics & Gynecology
DX: Z12.4 Encounter for screening for malignant neoplasm of cervix (principal)
CPT/HCPCS: 88175; G0145

== ENCOUNTER → 2023-10-27 | Outpatient (CLI) | payer OTHER, SELFPAY ==
[2023-10-31 05:08] LABS: Chlamydia By Nucleic Acid AMP Negative (Negative); Gonococcus By Nucleic Acid AMP Negative (Negative)
== END | disposition home or self-care (01) ==
LOC: LABSPEC 16:43
PROVIDERS: PCP Family Medicine; Referring Provider Registered Nurse; Visit Provider Registered Nurse
DX: Z34.90 Encounter for supervision of normal pregnancy, unspecified, unspecified trimester (principal)
CPT/HCPCS: 87086; 87088; 87491; 87591

== ENCOUNTER → 2023-11-06 | Outpatient (CLI) | payer OTHER, SELFPAY ==
[2023-11-06 12:13] LABS: Absolute Neutrophil Count 8.8 X10^3/uL (2.0-7.7); Basophil# 0.05 X10^3/uL; Basophil% 0.4 % (0-1); Eosinophil# 0.08 X10^3/uL; Eosinophils% 0.7 % (0-5); Hematocrit 39.2 % (37-47); Hemoglobin 13.4 g/dL (12.0-15.0); Lymphocyte % 20.1 % (19-41); Mean Corp Hgb Conc 34.2 g/dL (32-36); Mean Corpuscular Hgb 30.7 pg (27.0-32.0); Mean Corpuscular Volume 89.9 fL (81-99); Mean Platelet Vol. 9.9 fl (6.2-12.0); Monocyte# 0.54 X10^3/uL; Monocyte% 4.5 % (0-10); NRBC Flagged by Analyzer 0 % (0-5); Neutrophil # 8.84 X10^3/uL (2.7-7.7); Platelet Count 382 K/mm3 (150-450); RBC Distribution Width CV 12.5 % (11.6-14.6); RBC Distribution Width SD 41.1 fl (35.1-43.9); Red Blood Count 4.36 M/mm3 (4.2-5.4)
[2023-11-06 13:25] LABS: Hemoglobin A1c 4.8 % (3.8-5.6)
[2023-11-06 13:32] LABS: HIV - WCH Non-Reactive (Nonreactive); Hepatitis B Surface Antigen Non-Reactive (Nonreactive); Hepatitis C Antibody Non-Reactive (Nonreactive); Rubella IgG Reactive (Nonreactive); Syphilis Antibodies Non-reactive
== END | disposition home or self-care (01) ==
LOC: LAB 11:30
PROVIDERS: PCP Family Medicine; Referring Provider Registered Nurse; Visit Provider Registered Nurse
DX: Z34.90 Encounter for supervision of normal pregnancy, unspecified, unspecified trimester (principal)
CPT/HCPCS: 36415; 83036; 85025; 86703; 86762; 86780; 86803; 86850; 86900; 86901; 87340

== ENCOUNTER → 2024-01-12 | Outpatient (CLI) | payer OTHER, SELFPAY ==
--- NOTE | 2024-01-12 13:27 | US_ITS ---
STUDY: SECOND AND THIRD TRIMESTER OBSTETRICAL ULTRASOUND REASON FOR EXAM: Female, 33 years old anatomy LMP: August 27, 2023. TECHNIQUE: Transabdominal and Transvaginal TECHNICAL QUALITY: Adequate. PRIOR ULTRASOUND: None. FINDINGS: There is a single intrauterine fetus. The fetus is in a cephalic presentation. There is demonstrated cardiac activity with a heart rate of 140 bpm. There is a normal amniotic fluid volume. The largest amniotic fluid pocket measures 5.2 cm x 7.3 cm. The amniotic fluid index (EDYTA) is within normal limits. The placenta is posterior in location and is not low lying. There are Grade 0 placental changes. The cervix measures 5.1 cm in length. The adnexal regions are not visualized. BIOMETRY: BPD: 4.58 cm: 19 weeks, 6 days HC: 17.22 cm: 19 weeks, 6 days AC: 14.31 cm: 19 weeks, 5 days FL: 3.14 cm: 19 weeks, 5 days CI: 79.1% FL/BPD: 68.5% FL/HC: FL/AC: 21.9% HC/AC: 1.2 age by current US: 19 weeks, 5 days. CELY by current US: June 02, 2024. Estimated weight: 309 grams, +/- 46 grams, 45 %. Age by LMP: 19 weeks, 5 days. CELY by LMP: June 02, 2024. ANATOMY: Gender: Male Cranium: Normal lateral ventricles. Normal choroid plexus. Normal cerebellum. Normal cisterna magna. Normal face, nose and lips. Chest: Normal 4-chamber heart. Abdomen/Pelvis: Normal diaphragm. Normal stomach. Normal abdominal wall. Normal cord insertion. Normal 3 vessel cord. Normal kidneys. Normal bladder. Spine: Normal cervical spine. Normal thoracic spine. Normal lumbar spine. Normal sacrum. Extremities: Normal bilateral upper extremities. Normal bilateral lower extremities. US/OB Anatomy Scan IMPRESSION: Single live intrauterine gestation with a mean gestational age of 19 weeks and 5 days. Electronically Signed: Pola Hilario MD at 10:28 EDT ,
== END | disposition home or self-care (01) ==
PROVIDERS: PCP Family Medicine; Referring Provider Obstetrics & Gynecology; Visit Provider Obstetrics & Gynecology
DX: O09.90 Supervision of high risk pregnancy, unspecified, unspecified trimester (principal); Z3A.00 Weeks of gestation of pregnancy not specified
CPT/HCPCS: 76805; 76817

== ENCOUNTER → 2024-03-11 | Outpatient (CLI) | payer OTHER, SELFPAY ==
[2024-03-11 10:12] LABS: Absolute Lymphocyte Count 1.58 X10^3/uL (0.83-4.51); Absolute Neutrophil Count 9.4 X10^3/uL (2.0-7.7); Basophil# 0.03 X10^3/uL; Basophil% 0.3 % (0-1); Eosinophil# 0.07 X10^3/uL; Eosinophils% 0.6 % (0-5); Hematocrit 35.3 % (37-47); Lymphocyte # 1.58 X10^3/ul (0.83-4.51); Lymphocyte % 13.4 % (19-41); Mean Corpuscular Volume 91.2 fL (81-99); Mean Platelet Vol. 9.4 fl (6.2-12.0); Monocyte# 0.56 X10^3/uL; Monocyte% 4.8 % (0-10); NRBC Flagged by Analyzer 0 % (0-5); Neutrophil # 9.42 X10^3/uL (2.7-7.7); Platelet Count 344 K/mm3 (150-450); RBC Distribution Width CV 12.7 % (11.6-14.6); RBC Distribution Width SD 41.8 fl (35.1-43.9); Red Blood Count 3.87 M/mm3 (4.2-5.4); White Blood Count 11.8 K/mm3 (4.4-11.0)
[2024-03-11 10:20] LABS: Glucose Challenge Gest 1H 50g 151 mg/dL (70-140)
[2024-03-11 10:55] LABS: HIV - WCH Non-Reactive (Nonreactive); Syphilis Antibodies Non-reactive
== END | disposition home or self-care (01) ==
LOC: PAVLAB 09:43
PROVIDERS: Referring Provider Obstetrics & Gynecology; Visit Provider Obstetrics & Gynecology
DX: O09.90 Supervision of high risk pregnancy, unspecified, unspecified trimester (principal); Z13.1 Encounter for screening for diabetes mellitus; Z3A.00 Weeks of gestation of pregnancy not specified
CPT/HCPCS: 36415; 82950; 85025; 86703; 86780

== ENCOUNTER → 2024-03-21 | Outpatient (CLI) | payer OTHER, SELFPAY ==
[2024-03-21 07:53] LABS: Glucose GTT-Gestation. Fasting 106 mg/dL (<105)
[2024-03-21 10:59] LABS: Glucose GTT-Gestational 1 Hr 166 mg/dL (<190)
[2024-03-21 11:21] LABS: Glucose GTT-Gestational 2 Hr 141 mg/dL (<165)
[2024-03-21 11:28] LABS: Glucose GTT-Gestational 3 Hr 108 L (<145)
== END | disposition home or self-care (01) ==
LOC: LAB 07:07
PROVIDERS: PCP Family Medicine; Referring Provider Obstetrics & Gynecology; Visit Provider Obstetrics & Gynecology
DX: O99.810 Abnormal glucose complicating pregnancy (principal); Z3A.00 Weeks of gestation of pregnancy not specified
CPT/HCPCS: 36415; 82951; 82952

== ENCOUNTER → 2024-05-08 | Outpatient (CLI) | payer OTHER, SELFPAY | END | disposition home or self-care (01) | LOC: LABSPEC 12:55 | PROVIDERS: PCP Family Medicine; Referring Provider Obstetrics & Gynecology; Visit Provider Obstetrics & Gynecology | DX: O09.90 Supervision of high risk pregnancy, unspecified, unspecified trimester (principal); Z3A.00 Weeks of gestation of pregnancy not specified | CPT/HCPCS: 87081 ==

== ENCOUNTER 2024-05-27 05:24 | Inpatient (IN) | payer OTHER, SELFPAY ==
[2024-05-27] VITALS (19 sets, daily range): BP systolic 113–132; BP diastolic 80–98; PULSE 60–97; RESP 16–19; TEMP 36.2–37.1; O2SAT 96–100; BMI 38.5
[2024-05-27] MEDS: Lactated Ringers 1,000 ML 999 ML IV (05:40)
[2024-05-27 06:04] LABS: Absolute Lymphocyte Count 2.17 X10^3/uL (0.83-4.51); Absolute Neutrophil Count 10.1 X10^3/uL (2.0-7.7); Basophil# 0.06 X10^3/uL; Basophil% 0.4 % (0-1); Eosinophil# 0.09 X10^3/uL; Eosinophils% 0.7 % (0-5); Hemoglobin 12.4 g/dL (12.0-15.0); Lymphocyte # 2.17 X10^3/ul (0.83-4.51); Lymphocyte % 16.1 % (19-41); Mean Corp Hgb Conc 34.4 g/dL (32-36); Mean Corpuscular Hgb 31.8 pg (27.0-32.0); Mean Corpuscular Volume 92.3 fL (81-99); Mean Platelet Vol. 10.6 fl (6.2-12.0); Monocyte# 0.89 X10^3/uL; Monocyte% 6.6 % (0-10); NRBC Flagged by Analyzer 0 % (0-5); Neutrophil # 10.13 X10^3/uL (2.7-7.7); Neutrophil % 75.1 % (47-70); Platelet Count 272 K/mm3 (150-450); RBC Distribution Width CV 13.2 % (11.6-14.6); RBC Distribution Width SD 44.3 fl (35.1-43.9); White Blood Count 13.5 K/mm3 (4.4-11.0)
[2024-05-27] MEDS: Acetaminophen 500 MG Tablet 1000 MG PO ×3 (06:08→18:15)
[2024-05-27 06:10] LABS: Bedside Glucose 106 mg/dL (74-106)
[2024-05-27] MEDS: Lactated Ringers 1,000 ML 150 ML IV (06:47)
[2024-05-27] MEDS: Sodium Citrate/Citric Acid 30 ML UDC PO (06:47)
[2024-05-27] MEDS: Cefazolin 2 GM in 0.9% Normal Saline (100mL Bag) 100 ML IV (07:25)
--- NOTE | 2024-05-27 07:27 | HP.PCM_ITS ---
History and Physical Date of Admission: 05/27/24 Intake Vital Signs 12/21/2408:00 05/16/2408:40 05/24/2408:57 05/24/2409:00 Height 5 ft 1 in 5 ft 1 in 5 ft 1 in 5 ft 1 in Weight: 201 lb BMI 38.0 BP 124/82 H Intake Visit Reasons: 39 WK OB *SM/JV Iron Handler Required: No Is patient in pain?: No Allergies No Known Allergies Allergy (Verified 05/24/24 08:58) Medications ?Medication ?Instructions ?Recorded ?Confirmed ?Type multivitamin no.47-iron fum 27 cap PO 10/24/23 05/24/24 History mg-folate no.1 1 mg-dha 300 mg capsule (PNV-DHA) promethazine 12.5 mg tablet 12.5 mg PO Q6H PRN nausea and 11/15/23 05/24/24 Rx vomiting #60 tabs Last Menstrual Period: 08/27/23 Zika: Zika virus screening: Negative : No Have you fallen in the past year?: No PFSH PFSH Medical History Abnormal glucose affecting delivery delivered Headache Surgical History [place] teeth extracted Previous back surgery Family History Grandfather CVA (cerebral vascular accident) Social History adopted: No household members: spouse and children number of children: 1 current occupational status: employed current occupation: [employer] pets and animals: Yes pets and animals: dog(s) history of recent travel: No sexually active: Yes Smoking Status: Never smoker alcohol intake: current details: not while substance use type: does not use well-balanced diet: daily or most days caffeine: No eating out: 1-3 times/week during the past year weight has: remained stable what type of physical activity do you participate in: walking frequency: 3-4 times per week duration: 15-30 minutes/day keyanna/church: None seatbelt use: always do you feel safe at home: Yes 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 Date Name GA/Weeks Outcome Route Bth Weight Infant Gen Labor Lgth Anesthesia Del Hansatn Provider FOB 11/16/21 Diane 41 live - full term C- section Female [facility] Rosario Delivery Date: 11/16/21 Last Updated by: Sarah Valero [facility] FTP 6cm CPD 41wk IOL HPI 39 WK OB *SM/JV Details: MYLES MCCANN is a 33 year old who presents for RLTCS and BS declines TOLAC, desires sterilization. OB Visit CELY Calculator Estimated Delivery Date Method Current WG Current Estimate 06/02/24 LMP (Certain) 38w 5d Expected Delivery Route/Plan plans repeat c/s Specific Issue/Plans Covid status: [] Flu vaccine: [] Tdap vaccine: given Rhogam: [na LARC form signed: declined movement and labor precautions reviewed. Problem list reviewed and updated with the most current plan of care details and appropriate orders placed. Relevant counseling for the gestational age provided. Continue routine care and follow up unless otherwise noted in visit notes/problem list details Initial Weight: 190 lb Date -?-?-?-?-?-?-?-?-?-?-?-?- EGA Weight BP Urine Prot -?-?-?-?-?-?-?-?-?-?-?-?- Glucose FHR FuHt Pres Dilation -?-?-?-?-?-?-?-?-?-?-?-?- Effaced St Visit Note 10/27/23-?-?-?-?-?-?-?-?-?-?-?-?- 8w 5d 190 lb(+0 oz) 129/84 -?-?-?-?-?-?-?-?-?-?-?-?- -?-?-?-?-?-?-?-?-?-?-?-?- Lc- CRL 18.8 con with LMP. desires nipt. 11/24/23-?-?-?-?-?-?-?-?-?-?-?-?- 12w 5d 187 lb 8 oz(-2 lb 8 oz) 128/84 Negative -?-?-?-?-?-?-?-?-?-?-?-?- Negative -?-?-?-?-?-?-?-?-?-?-?-?- JV- no lof, vaginal bleeding, or cramping. 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 (has a girl at home) planning rpt section with SM. 12/22/23-?-?-?-?-?-?-?-?-?-?-?-?- 16w 5d 193 lb 2 oz(+3 lb 2 oz) 124/82 Negative -?-?-?-?-?-?-?-?-?-?-?-?- Negative 150 -?-?-?-?-?-?-?-?-?-?-?-?- kw-no vb/cramping. possible flutters. anatomy scan scheduled. 01/23/24-?-?-?-?-?-?-?-?-?-?-?-?- 21w 2d 196 lb(+6 lb) 133/84 Negative -?-?-?-?-?-?-?-?-?-?-?-?- Negative 137 -?-?-?-?-?-?-?-?-?-?-?-?- JV- feeling movement, anatomy scan is normal. pt prefers Dr. perez for spinal. has h/o scar tissue in back and he placed last spinal for her without difficulty. (provider prior had trouble) 02/16/24-?-?-?-?-?-?-?-?-?-?-?-?- 24w 5d 196 lb(+6 lb) 118/81 -?-?-?-?-?-?-?-?-?-?-?-?- 135 25 -?-?-?-?-?-?-?-?-?-?-?-?- SM no vb lof good fm no regular ctx schedue cs 03/11/24-?-?-?-?-?-?-?-?-?-?-?-?- 28w 1d 199 lb(+9 lb) 110/73 Negative -?-?-?-?-?-?-?-?-?-?-?-?- Negative 130 28 -?-?-?-?-?-?-?-?-?-?-?-?- SM- no vb lof good fm n oregular ctx tdap 03/25/24-?-?-?-?-?-?-?-?-?-?-?-?- 30w 1d 198 lb 4 oz(+8 lb 4 oz) 117/78 Negative -?-?-?-?-?-?-?-?-?-?-?-?- Negative 166 31 -?-?-?-?-?-?-?-?-?-?-?-?- JV- normal 3 hr. no complaints. has rpt cs scheduled. no lof, vaginal bleeding, or dec fm. 04/08/24-?-?-?-?-?-?-?-?-?-?-?-?- 32w 1d 202 lb(+12 lb) 109/74 Negative -?-?-?-?-?-?-?-?-?-?-?-?- Negative 165 34 -?-?-?-?-?-?-?-?-?-?-?-?- JV- no lof, vaginal bleeding, or dec fm. now wants bilateral salpingectomy at time of 04/23/24-?-?-?-?-?-?-?-?-?-?-?-?- 34w 2d 200 lb 6 oz(+10 lb 6 oz) 114/78 Trace -?-?-?-?-?-?-?-?-?-?-?-?- Negative 150 36 -?-?-?-?-?-?-?-?-?-?-?-?- SM- SM- no vb lof good fm no regular ctx discussed PFPT for pelvic pain 05/08/24-?-?-?-?-?-?-?-?-?-?-?-?- 36w 3d 203 lb(+13 lb) 110/73 Negative -?-?-?-?-?-?-?-?-?-?-?-?- Negative 150 37 -?-?-?-?-?-?-?-?-?-?-?-?- SM- no vb lof good fm no regular ctx gbs today 05/16/24-?-?-?-?-?-?-?-?-?-?-?-?- 37w 4d 203 lb(+13 lb) 118/79 -?-?-?-?-?-?-?-?-?-?-?-?- 155 38 -?-?-?-?-?-?-?-?-?-?-?-?- SM- no vb lof good fm no regular cltx 05/24/24-?-?-?-?-?-?-?-?-?-?-?-?- 38w 5d 201 lb(+11 lb) 124/82 Negative -?-?-?-?-?-?-?-?-?-?-?-?- Negative 150 38 -?-?-?-?-?-?-?-?-?-?-?-?- SM- no vb lof good fm no regular ctx ACOG First Trimester First Trimester: Desire for , Alcohol, Tobacco Cessation, Illicit/Recreational Drug/Substance Use, Intimate Partner Violence, Barriers to care, Unstable Housing, Communication Barriers, Environmental/Work Hazards, Anticipated Course of Care, Toxoplasmosis Precations, Use of Any medications, Sexual activity, Exercise, Dental Care, Sauna/Hot tub use, Seat Belt use, Childbirth classes/Hospital facilities, Travel, Indications for Ultrasound and Screening for Aneuploidy; Discussed Second Trimester Second Trimester: Signs and Symptoms of Labor, Selecting a care provider, Reproductive Life Planning & Contreception, Care Planning, Depression/Anxiety and Intimate Partner Violence; Discussed Tobacco Cessation Third Trimester Third Trimester: Pain Management Plans, Labor support person(s), Immediate Larc, Movement Monitoring, Signs and Symptoms of Preeclampsia and [place] Education ROS Const Reports system reviewed and no additional complaints, except as documented Card Reports system reviewed and no additional complaints, except as documented Resp Reports system reviewed and no additional complaints, except as documented GI Reports system reviewed and no additional complaints, except as documented and Reports nausea Reports system reviewed and no additional complaints, except as documented Musc Reports system reviewed and no additional complaints, except as documented Exam Const General: cooperative, healthy appearing, comfortable and anxious HENMT Head: normal to inspection Nose: external nose normal Face and sinus: normal facial exam Neck Neck: normal visual inspection, full ROM and no lymphadenopathy Thyroid: thyroid normal Chest Chest palpation & inspection: normal inspection of the chest Resp Effort & Inspection: normal respiratory effort GI Inspection: normal to inspection Palpation: soft and other (gravid uterus) Other: vertex and appropriate size for gestational age Other: Cervical Exam: Extrem General: pedal edema Results POC Urinalysis 2 Dip (Clinic) Office Urine Glucose Negative Last Edit by Melanie Goodwin on 05/24/24 09:02 Office Urine Protein Negative Last Edit by Melanie Goodwin on 05/24/24 09:02 Coding Level of Care Code OB Routine Diagnoses Sterilization Z30.2 Abnormal glucose affecting O99.810 Anxiety F41.9 Hx of section Z98.891 Supervision of high-risk O09.90 38 weeks gestation of Z3A.38 Weeks of gestation: 38 weeks depression O99.345; F53.0 Migraine with aura G43.109 Assessment and Plan Assessment and Plan (1) Sterilization: Status: Acute Comment: plan BS at time of csection (2) Abnormal glucose affecting : Status: Acute Comment: nl 3 hr. GTT (3) Anxiety: Status: Acute (4) Hx of section: Status: Acute Comment: desires repeat c/s, plan at 39 weeks. -h/o back surgery. wants to request Dr. perez who did her spinal last delivery. RLTCS and BS scheduled for 05/27 @ 7:10 with (5) Supervision of high-risk : Status: Acute Comment: PRR, CELY 06/02/24, boy, Alvaro CLAIR Trevizoana, Keanu (6) : Status: Acute Qualifiers: Weeks of gestation: 38 weeks Qualified Code(s): Z3A.38 - 38 weeks gestation of Comment: discussed genetic & carrier testing, desires. NIPT low risk. Nl anatomy (7) depression: Status: Acute Comment: zoloft in past, currently stable off. (8) Migraine with aura: Status: Acute Comment: had with covid otherwise does not- tolerates progestin only pill doesn't have on it. reviewed precautions that if migraines happen with pill especially with aura, to stop immediately. Orders: plan RLTCS and BS
--- NOTE | 2024-05-27 07:31 | OP.PCM_ITS ---
Assessment & Plan (1) Sterilization: COMMENT: plan BS at time of csection (2) Abnormal glucose affecting : COMMENT: nl 3 hr. GTT (3) Anxiety: (4) Hx of section: COMMENT: desires repeat c/s, plan at 39 weeks. -h/o back surgery. wants to request Dr. perez who did her spinal last delivery. RLTCS and BS scheduled for 05/27 @ 7:10 with SM (5) Supervision of high-risk : COMMENT: PRR, CELY 06/02/24, Alvaro torre PC Diane, Keanu (6) : QUALIFIERS: Weeks of gestation: 38 weeks Qualified Code(s): Z3A.38 - 38 weeks gestation of COMMENT: discussed genetic & carrier testing, desires. NIPT low risk. Nl anatomy (7) Migraine with aura: COMMENT: had with covid otherwise does not- tolerates progestin only pill doesn't have on it. reviewed precautions that if migraines happen with pill especially with aura, to stop immediately. (8) depression: COMMENT: zoloft in past, currently stable off. (9) delivery delivered: COMMENT: RLTCS BS yelitza John 39 (10) Status post bilateral salpingectomy: Maternal Data Information CELY Calculator Estimated Delivery Date Method Current WG Current Estimate 06/02/24 LMP (Certain) 39w 2d Final CELY Source: LMP Details Operative Information Date of Procedure: 05/27/24 Pre-Operative Diagnosis: Previous Post-Operative Diagnosis: same Indications for : Repeat Elective (and bilateral salpingectomy) Indications Narrative: Surgeon: Adry Ponce MD Classification: Scheduled Procedure Type: low transverse claims counsel #1: Duncan Nichols Type of Anesthesia: Spinal Special Medications: none Antibiotic Given: Ancef 2 grams IV x1 Drain: Avendaño to straight drain Estimated Blood Loss: 700 Fluids Replaced: crystalloid Procedure Start Time: 07:52 Procedure Stop Time: 08:36 Findings Description of Procedure: Spinal anesthesia was placed without difficulty. Avendaño catheter was placed. The patient was placed in the dorsal supine position with leftward tilt. Patient was prepped and draped in the normal sterile fashion. Pfannenstiel skin incision was made with the scalpel and carried through to the underlying layer of fascia with the scalpel. Fascia was nicked in the midline and the incision extended laterally. The rectus bellies were dissected off superiorly and inferiorly with out complication both sharply and bluntly. The peritoneum was entered digitally. The incision was stretched and a low transverse uterine incision was made with the scalpel. The infant's head was delivered atraumatically followed by the anterior and posterior shoulders without complication the rest of the infant delivered. The cord was clamped and cut and the infant was handed off to awaiting nurse. The placenta was delivered spontaneously immediately following and was noted to be intact and have a three- vessel cord. The uterus was exteriorized cleared of all clots and debris, and the incision was closed in a single layer closure using #1 Monocryl. The ovaries and fallopian tubes were noted to be within normal limits. Patient had desired sterilization and was counseled preoperatively regarding irreversibility and permanency. Therefore bilateral fallopian tubes were elevated and transected across using a LigaSure device starting proximally to distally without complication the entire fallopian tubes were removed. The uterus was returned to the maternal abdomen and gutters were cleared of all clots and debris. The peritoneum was closed with 3-0 Monocryl in a running fashion. hemoblast used for hemostasis on muscles. Fascia was closed with 0 PDS in a running fashion. Subcutaneous tissue was copiously irrigated and the skin was closed with 3-0 Monocryl in a subcuticular fashion. Mepilex dressing was applied without complication. Patient was taken to recovery in stable condition. Amniotic Membrane Rupture Type: Artificial Amniotic Fluid Description: Clear Placenta Disposition: [facility] Cord Vessel Description: 3 Vessels Delayed Cord Clamping: Yes Complications Risks of Surgery Discussed w/Patient: Bleeding, Infection, Need for Future C- Sections and Injury to surrounding structure(s) including bowel and bladder Vaginal Delivery Complication Complications: None Admit VTE Documentation VTE Present on Admission: No VTE Mechan Device Prophylaxis: SCD's Multi Select Codes Urinary/Genital Urinary/Genital CPT Codes: 25357 C/S+TL (bilateral salpingectomy) and 96065 Delivery [facility]
--- NOTE | 2024-05-27 07:34 | DCINST_ITS ---
Discharge Instructions Diet Discharge Diet: No restrictions Activity Discharge Activity: May Not Drive (for 2 weeks or while taking narcotic pain medications.), May Shower and May Take a Tub Bath (in 7 days) May shower in (days): 0 May resume sexual activity in: 4-6 weeks Weight Bearing Status: Full weight bearing Lifting Restrictions: 20 pounds Dressing / Incision Call your doctor if your incision/area has: Continuous Slow Oozing, Sudden Increased Bleeding, Increased Pain/ Swelling, Increased Redness and Foul Smelling Discharge Call your doctor if you observe: Fever of 101 or Higher and Using more than 1 pad per hour (for 2 hours) Suture Line Care: Avoid Pulling/Pushing and Avoid Pinching/Bending Cleanse incision/area with: Soap & Water and Keep Dressing Clean & Dry Follow Up Care Please Follow Up With: Adry Ponce MD When: Call [phone] to make an appointment for an incision check in 1-2 weeks. Test Results: Test results from this visit will be discussed in further detail at your follow- up appointment, if applicable. Discharge Plan Admission Admit Date/Time: 05/27/24 05:24 Attending Provider: Adry Ponce Primary Care Provider: Benoit Emanuel Discharge Orders/Prescriptions Prescriptions: New oxycodone-acetaminophen [Percocet] 5-325 mg tablet 1 tab PO Q6H PRN (Reason: pain) 7 Days Qty: 10 0RF naproxen 500 mg tablet 500 mg PO BID PRN PRN (Reason: Pain) Qty: 30 1RF No Action PNV-DHA 27 mg iron-1 mg -300 mg capsule 1 cap PO DAILY promethazine 12.5 mg tablet 12.5 mg PO Q6H PRN (Reason: nausea and vomiting) Qty: 60 1RF Referrals / Follow Up: Benoit Emanuel DO [Primary Care Provider] - Disposition Disposition (needs filled in before D/C Order can be placed): Home, Self Care
--- NOTE | 2024-05-27 07:58 | FALS_PTH ---
PATIENT: MYLES MCCANN LOC: [facility] U#:[id number] AGE/SX: 33/F ROOM: WP007 RE05/27/[address]: Dr. Adry Ponce MD : 1990 BED: 1 DIS: 05/28/2024 SPEC #: [id number] RECD: 05/27/24 10:31 STATUS: YAMILE ROMAN #: [id number] ELA: 05/27/24 07:[address]: Adry Ponce DEPT: SURGICAL PATHOLOGY RECD BY: Gail Hudson ENTERED: 05/27/24 11:43 SP TYPE: FALL TUBES OTHR DR: Dr. Benoit Emanuel, DO Tissues: Fallopian tube Procedures: Surgery Specimen Level II HEADER OPERATION: Tubal ligation PRE-OP DIAGNOSIS: Sterilization TISSUE SUBMITTED: Bilateral fallopian tubes MICROSCOPIC DIAGNOSIS Right fallopian tube, salpingectomy: Complete cross section of fallopian tube with no pathologic change. Left fallopian tube, salpingectomy: Complete cross section of fallopian tube with no pathologic change. AM: 05/28/2024 MICROSCOPIC DESCRIPTION Slides are reviewed. GROSS DESCRIPTION Received in fixative is one container labeled with the patient's name and designated bilateral fallopian tubes- stitch on right. The specimen consists of bilateral fallopian tubes including fimbrial ends. Right fallopian tube measuring 8.0 cm in length and 1.0 cm in diameter. Left fallopian tube measures 8.5cm in length and 1.0cm in diameter. Sections reveal unremarkable cut surfaces. Motion Graphics Artist sections are submitted in two cassettes: 1- right fallopian tube, 2- left fallopian tube. / SJ: 05/27/2024 TC:4 CPT: 95146 x2
[2024-05-27] MEDS: Methylergonovine 0.2 MG/ML Ampul IM (08:03)
[2024-05-27] MEDS: Oxytocin 15 Units/NS 250ml 15 UNITS/250 ML IV.SOLN 83 UNITS IV (08:50)
[2024-05-27 09:40] LABS: Syphilis Antibodies Non-reactive
[2024-05-27] MEDS: Ketorolac 30 MG/ML Syringe IV ×3 (09:51→22:37)
[2024-05-27] MEDS: 0.9% Saline Lock 10 ML Syringe IV ×3 (09:52→22:39)
[2024-05-27 10:17] LABS: Pathology Specimen OB SEE PATHOLOGY REPORT
[2024-05-27] MEDS: Lactated Ringers 1,000 ML 100 ML IV (11:50)
[2024-05-27] MEDS: Senna/Docusate Sodium 1 Tablet PO (11:50)
[2024-05-27] MEDS: Enoxaparin 40 MG/0.4 ML Syringe SC (20:01)
[2024-05-28] MEDS: Acetaminophen 500 MG Tablet 1000 MG PO ×2 (00:20→06:27)
[2024-05-28 00:21] VITALS: BP 116/71; PULSE 59; RESP 16; TEMP 36.3; O2SAT 97
[2024-05-28] MEDS: Ketorolac 30 MG/ML Syringe IV (04:53)
[2024-05-28] MEDS: 0.9% Saline Lock 10 ML Syringe IV (04:54)
[2024-05-28 05:00] VITALS: BP 114/77; PULSE 72; RESP 16; O2SAT 98
[2024-05-28 05:09] LABS: Hematocrit 32.7 % (37-47); Hemoglobin 11.1 g/dL (12.0-15.0); Mean Corp Hgb Conc 33.9 g/dL (32-36); Mean Corpuscular Hgb 31.4 pg (27.0-32.0); Mean Corpuscular Volume 92.6 fL (81-99); Mean Platelet Vol. 10.6 fl (6.2-12.0); Platelet Count 236 K/mm3 (150-450); RBC Distribution Width CV 13.5 % (11.6-14.6); RBC Distribution Width SD 45.3 fl (35.1-43.9); Red Blood Count 3.53 M/mm3 (4.2-5.4)
--- NOTE | 2024-05-28 07:29 | PCM.PN.OB ---
Subjective Subjective Patient doing well without complaints. Tolerating PO. Ambulating and voiding without difficulty. feeding well. Denies chest pain, shortness of breath, calf pain/swelling, fevers, chills, lightheadedness. Objective Data Objective Data Vital Signs: Vital Signs Temp Pulse Resp BP Pulse Ox O2 Del Method 97.4 F L 72 16 114/77 98 Room Air 05/28/24 00:21 05/28/24 05:00 05/28/24 05:00 05/28/24 05:00 05/28/24 05:00 05/28/24 05:00 Oxygen Delivery Method Room Air Weight: 204 lb Body Mass Index (BMI) 38.5 Intake & Output: Intake and Output for Last 24 Hours 05/26/24 05/27/24 05/28/24 23:59 23:59 23:59 Intake Total 2028.17 / 2028.17 Output Total 2500 / 2500 1400 / 1400 Balance -470.83 / -470.83 -1400 / -1400 Lab / Micro Data 05/28/24 05:03 Labs: Laboratory Results - last 24 hr 05/27/24 05:40: Syphilis Total Ab Non-reactive 05/28/24 05:03: WBC 16.0 H, RBC 3.53 L, Hgb 11.1 L, Hct 32.7 L, MCV 92.6, MCH 31.4, MCHC 33.9, RDW Std Deviation 45.3 H, RDW Coeff of Patrice 13.5, Plt Count 236, MPV 10.6 ROS Constitutional Constitutional: Reports systems reviewed and no addt'l complaints, except as documented Cardiovascular Cardiovascular: Reports systems reviewed and no addt'l complaints, except as documented Respiratory/Chest Respiratory/Chest: Reports systems reviewed and no addt'l complaints, except as documented Gastrointestinal Gastrointestinal: Reports systems reviewed and no addt'l complaints, except as documented Physical Exam Const alert, oriented x3 and no apparent distress HEENT Head and Scalp: atraumatic Resp normal respiratory effort GI soft to palpation and non-tender Inspection: incision intact, healing well and drainage (none) Bimanual Exam - Vag & Uterus: uterus non-tender Uterus Palpation: uterus fundus firm (below Umbilicus) Assessment & Plan (1) Status post bilateral salpingectomy: (2) delivery delivered: COMMENT: SM RLTCS SARIKA Montgomeryo 39 PLAN: Plan s/p LTCS PPD # 1 1. routine post care 2. breast feeding- support given 3. rh positive 4. rubella immune
[2024-05-28 08:19] VITALS: BP 111/74; PULSE 77; RESP 16; TEMP 36.6; O2SAT 98
--- NOTE | 2024-05-28 10:23 | CASEMGMT ---
Social Work Assessment Labor and Delivery Unit Patient Address:[address] [place] [address] Phone number: [phone] Date of Referral: 05/27/24 Time of Referral:? 1006 Referred By: Dr. Ponce Date of Intervention: ?05/28/24? Time of Intervention:? 909 Reason for Referral:? hx depression/ anxiety Sw completed chart review and acknowledges social work consult due to maternal mental health history. Sw presented to bedside and introduced self to mother of baby (RAISA- Carleen) and father of baby (FOB- Keanu). Sw explained reason for sw involvement and completed psychosocial assessment. FOB present for conversation and participated respectfully in assessment. MOB completed [place] Depression Scale. History obtained from: medical records, MOB and FOB Household composition: Residing in family home at this time is RAISA, PRESTON, their 2 year old daughter- Diane- and baby when ready for discharge. Parents deny any issues or concerns with their housing. Patient's parent/guardian status:? ?RAISA states that she and PRESTON met while attending college together, they have been together for 9 years. No concerns reported regarding domestic violence and intimate partner violence. baby is second baby for both parents together. Medical History: RAISA is 33 year old female who is 2, para 1- now 2 following labor and delivery of . RAISA received routine care during with [facility]. RAISA presented to hospital for scheduled repeat on 05/27/24 at 39 weeks gestation. Baby boy, named Alvaro, was born weighing 8lb 8oz with apgars of 8 and 9 at one and five minutes of life, respectfully. RAISA is pumping for baby and has breast pump for home. Baby will be followed by Dr. Stark for pediatrics. ? Educational Status:? Both parents graduated from high school- RAISA has her Master's degree and PRESTON just obtained his Bachelors. No difficulties with reading, learning or comprehension. Financial Status: Both parents are gainfully employed outside of the home. 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 Infant Supplies:?? Parents have obtained all necessary baby supplies, including: car seat, safe sleep space, clothes, diapers and wipes. Childcare/Caregiver(s):? When parents are both working they have child welfare worker arrangements made with maternal grandparents. Transportation:?? No transportation barriers, both parents have their drivers license and reliable means of transportation. Programs/Agencies Involved: ???Parents are not connected to any community agencies that assist them financially- they are over income for Medicaid insurance and SNAP. RAISA has utilized mental health support from [facility] in the past, is not connected to them at this time. Children Services/Legal Issues:??No history of children services involvement, no issues or concerns warranting referral to be made at this time. ? Behavioral Health Issues: ??Mental Health History:?FOB denies mental health history or diagnoses. MOB states that she has a history of anxiety and did experience post depression after the of her daughter. MOB states that she would experience rage. MOB states that she was guilty regarding those symptoms and would try to hide how she was feeling, MOB reports that this time she is more receptive and understanding of symptoms. MOB states that she is open to talking to her supports about what she is feeling and potentially getting connected to counseling supports again. MOB states that she was prescribed zoloft, but did not take it long due to side effects. ?? Substance Use History:??Parents deny substance use prior to and during . Family History:???MOB states that her family does have some history of addiction/ substance abuse. MOB states that she does not use substances as a coping mechanism. ?? Drug Screens: ??No drug screens observed in chart review. Family/Social Stressors:? Parents deny any issues, concerns or stressors at this time. RAISA does admit that she was emotional last weekend and was grieving what life was before having baby. MOB states that she is going to miss her daughter being their only child and what life was like with her as their only child. Support Systems: Parents report that maternal grandparents are their biggest supports at this time. Depression/Shaken Baby/Safe Sleeping:? Sw educated parents on signs and symptoms of baby blues and mood and anxiety disorders. Parents express understanding. MOB completed [place] Depression Scale, her score was a 2. Sw provided education and support. Sw educated parents on shaken baby prevention and ABCs of safe sleep. Parents express understanding. ASSESSMENT:? MOB and baby admitted following labor and delivery. Parents talkative and open to meeting with sw. MOB and FOB observed to provide loving and appropriate hands on care to . MOB with mental health history of anxiety and history of rage. MOB open to talking about her symptoms and experiences during her first period. MOB states that she is open to being more open with her natural supports about what she is feeling and experiencing. MOB also open to counseling supports and services. Parents have obtained all necessary baby supplies and have natural supports in place. PLAN:? MOB and baby to be discharged when medically ready. Sw provided literature for parents to review regarding: shaken baby prevention, ABCs of safe sleep, Help Me Grow, list of [facility] resources that are accessible to family in time of need, and signs and symptoms of baby blues and mood and anxiety disorders to be on the lookout for. ?No other services requested or indicated. Jose Jernoimo, QUALITY ASSURANCE ASSOCIATE, TRAILER STEERER
== END 2024-05-28 12:50 | disposition home or self-care (01) | DRG 785 ==
PROVIDERS: Admitting Provider Obstetrics & Gynecology; PCP Family Medicine; Referring Provider Obstetrics & Gynecology; Visit Provider Obstetrics & Gynecology
PROC: 10D00Z1 Extraction of Products of Conception, Low, Open Approach (ICD-10-PCS; CPT 59514; principal; 2024-05-27 07:00)
DX: O34.211 Maternal care for low transverse scar from previous cesarean delivery (principal); Z30.2 Encounter for sterilization; Z37.0 Single live birth; Z3A.39 39 weeks gestation of pregnancy; Z86.16 Personal history of COVID-19; Z87.59 Personal history of other complications of pregnancy, childbirth and the puerperium
CPT/HCPCS: 82962; 85025; 85027; 86780; 86850; 86900; 86901; 88302; 99221; J7120; A4216; G0378; J2405; J3490

== ENCOUNTER → 2025-09-03 | Outpatient (CLI) | payer OTHER, SELFPAY ==
--- OUTSIDE RECORDS SUMMARY | 2025-09-03 17:59 | XMS RPT_ITS | CCD ---
Author Organization [facility] Care Team Providers Care Energy Conservation Engineer Name Role Phone Dr. Rylan Garcia Primary Care Provider Dr. Rylan Garcia Referring Provider Dr. Adry Ponce Attending Provider [phone] Keegan CREATIVE RECRUITER, CREATIVE RECRUITER-C Daisy Attending Provider [phone] Dr. Kay Khan Attending Provider [phone] Dr. Adry Ponce Admit Provider Dr. Adry Ponce Other Provider [phone] Eugenio CREATIVE RECRUITER, CREATIVE RECRUITER-C Amalia Attending Provider [phone] Dr. Rylan Garcia Primary Care Provider Dr. Rylan Garcia Referring Provider [phone] ADELINA Thomas Attending Provider GERMANIA Mcclure Attending Provider Dr. Rylan Garcia Primary Care Provider Dr. Rylan Garcia Referring Provider [phone] GERMANIA Mcclure Attending Provider Dr. Kay Khan Attending Provider [phone] GERMANIA Coyne Attending Provider Rylan Garcia Primary Care Unavailab Rylan William Referring Unavailab Adry Kirkpatrick Attending Unavailable Care Physician, No Primary Primary Care Unava ilable Rylan Garcia Referring Unavailab Adry Kirkpatrick Attending Unavailable Reese Ervin, Kay Attending UnavailRylan Méndez Referring Unavailab Rylan William Primary Care Unavailab le Reese Ervin, Kay Attending UnavailRylan Méndez Primary Care Unavailab le Rylan Garcia Referring Unavailab le Marcanthony, Adry Referring Unavailable Marcanthony, Adry Attending Unavailable Rylan Garcia Primary Care Unavailab le Marcanthony, Adry Referring Unavailable Care Physician, No Primary Primary Care Unava ilable Marcanthony, Adry Attending Unavailable Marcanthony, Adry Referring Unavailable Marcanthony, Adry Attending Unavailable Rylan Garcia Primary Care Unavailab le Ren, Faina Referring Unavailable Ren, Faina Attending Unavailable Rylan Garcia Primary Care Unavailab le Marcanthony, Adry Referring Unavailable Marcanthony, Adry Attending Unavailable Adelfo, Rylan Fay Primary Care Unavailab le Marcanthony, Adry Admitting Unavailable Faina Mcclure Referring Unavailable Ren, Faina Attending Unavailable Rylan Garcia Primary Care Unavailab Sophie Mitchell Attending Unavailable Rylan Garcia Primary Care Unavailab le Rylan Garcia Referring Unavailab le Reese Ervin, Kay Attending UnavailRylan Méndez Primary Care Unavailab Rylan William Referring Unavailab Rylan William Referring Unavailab le Marcanthony, Adry Attending Unavailable Rylan Garcia Primary Care Unavailab Taurus Walker Attending Unavailable Rylan Garcia Referring Unavailab Rylan William Primary Care Unavailab le Reese Ervin, Kay Attending UnavailRylan Méndez Primary Care Unavailab le Rylan Garcia Referring Unavailab le Marcanthony, Adry Admitting Unavailable Rylan Garcia Primary Care Unavailab le Marcanthony, Adry Attending Unavailable Rosario, Adry Consulting Unavailable Marcanthony, Adry Referring Unavailable Rylan Garcia Referring Unavailab le Marcanthony, Adry Attending Unavailable Rylan Garcia Primary Care Unavailab le Marcanthony, Adry Attending Unavailable Rylan Garcia Primary Care Unavailab le Rylan Garcia Referring Unavailab le Rylan Garcia Primary Care Unavailab le Rylan Garcia Referring Unavailab Adry Kirkpatrick Attending Unavailable Kay Khan Attending UnavailRylan Méndez Referring Unavailab vikki Garcai, Rylan Fay Primary Care Unavailab vikki Garcia, Rylan Fay Primary Care Unavailab vikki Garcia, Rylan Fay Referring Unavailab Adry Kirkpatrick Attending Unavailable Kay Khan Referring UnavailKay Griffin Attending UnavailRylan Méndez Primary Care Unavailab Faina Mahan Attending Unavailable Rylan Garcia Referring Unavailab vikki Garcia, Rylan Fay Primary Care Unavailab vikki GARCIA, RYLAN Black Primary Care Unavailable REFERRED, SELF Referring Unavailable CHANNING RAY Attending Unavailable Medications Current Medications Medication Drug Class(es) Dates Sig (Normalized) Sig (Original) Multivit 97-Upqm-Exgydx 1-Dha (Pnv-Dha) 27 mg iron-1 mg -300 mg capsule (3 sources) Start: 10-24-2023 Multivit 67-Esvh-Xokkqx 1-Dha (Pnv-Dha) 27 mg iron-1 mg -300 mg capsule Active CAP PO October 24, 2023 1:00am Start: 10-24-2023 Multivit 47-Ir on-Folate 1-Dha (Pnv-Dha) 27 mg iron-1 mg -300 mg capsule Active CAP PO October 24, 2023 12:00am Prenat.Vits,Allan,Yds-Iiir-Klz ic (4 sources) Start: 03-30-2021 take 1 tablet by mouth once daily Prenat.Vits,Allan,Fpx-Ctqc-Rjpbz Active 1 TABLET PO DAILY March 30, 2021 2:44pm Start: 03-30-2021 End: 12-29-2022 take 1 tablet by mouth once daily Prenat.Vits,Allan,Wnl-Hxcq-Dlbih Discontin ued 1 TABLET PO DAILY March 30, 2021 12:00am December 29, 2022 8:59am Start: 03-30-2021 End: 12-29-2022 take 1 tablet by mouth once daily Prenat.Vits,Allan,Zzr-Segs-Mioex Discontin ued 1 TABLET PO DAILY March 29, 2021 11:00pm December 29, 2022 7:59am promethazine hydrochloride 12.5 mg oral tablet (8 sources) Phenothiazine Start: 10-24-2023 End: 11-15-2023 take 12.5 mg by mouth every six hours Promethazine Active 12.5 MG PO EVERY 6 HOURS 60 November 15, 2023 11:18am Start: 05-10-2021 End: 06-02-2021 take 12.5 mg by mouth every six hours Promethazine Discontinued 12.5 MG PO EVERY 6 HOURS 60 May 10, 2021 12:00am June 02, 2021 9:10am Completed/Discontinued Medications Medication Drug Class(es) Dates Sig (Normalized) Sig (Original) acetaminophen 325 mg / oxyCODONE hydrochloride 5 mg oral tablet (4 sources) Opioid Agonist Start: 11-16-2021 End: 11-30-2021 take 1 tablet by mouth every four hours Oxycodone-Acetamino phen (Endocet) 5-325 mg tablet Discontinued 1 TABLET PO Q4H 20 7 November 16, 2021 November 30, 2021 12:18pm biotin 10 mg oral capsule (3 sources) Start: 12-29-2022 End: 10-24-2023 Biotin Discontinued MCG PO December 29, 2022 12:00am October 24, 2023 11:21am Drospirenone (Contraceptive) (16 sources) Progestin Start: 04-15-2022 End: 04-15-2022 take 1 tablet by mouth once daily Drospirenone (Contraceptive) (Slynd) 4 mg (28) tablet Discontinued 0 .ROUTE .COMPLEX April 15, 2022 1:44pm April 15, 2022 1:48pm take 1 tablet by mouth once daily for 24 DAYS Start: 04-15-2022 End: 04-15-2022 take 1 tablet by mouth once daily Drospirenone (Contraceptive) (Slynd) 4 mg (28) tablet Discontinued 0 .ROUTE .COMPLEX April 15, 2022 12:44pm April 15, 2022 12:48pm take 1 tablet by mouth once daily for 24 DAYS Start: 03-24-2022 End: 04-15-2022 take 1 tablet by mouth once daily Drospirenone (Contraceptive) (Slynd) 4 mg (28) tablet Discontinued 0 .ROUTE .COMPLEX March 24, 2022 5:03pm April 15, 2022 1:45pm take 1 tablet by mouth once daily for 24 DAYS Start: 03-24-2022 End: 04-15-2022 take 1 tablet by mouth once daily Drospirenone (Contraceptive) (Slynd) 4 mg () tablet Discontinued 0 .ROUTE .COMPLEX March 24, 2022 4:03pm April 15, 2022 12:45pm take 1 tablet by mouth once daily for 24 DAYS Start: 01-27-2022 End: 03-24-2022 take 4 mg by mouth once daily Drospirenone (Contracept matthias) Discontinued 4 MG PO DAILY March 21, 2022 8:46am March 24, 2022 5:03pm Start: 12-27-2021 End: 01-20-2022 take 4 mg by mouth once daily Drospirenone (Contracept matthias) Discontinued 4 MG PO DAILY December 27, 2021 12:00am January 20, 2022 12:03am Flucelvax Quad (flu vac qs (6 ms up) CD) 60 mcg (15 mcg x (1 source) Start: 08-06-2021 End: 08-06-2021 inject 15 ug by intramuscular injection once Flucelvax Quad (flu vac qs (6 ms up) CD) 60 mcg (15 mcg x Discontinued 60 MCG IM ONCE 0.5 August 06, 2021 8:28am August 06, 2021 8:54am naproxen 250 mg oral tablet (4 sources) Nonsteroidal Anti-inflammatory Drug Start: 11-16-2021 End: 11-30-2021 take 250-500 mg by mouth every eight hours as needed Naproxen Discontinued 250 - 500 MG PO EVERY 8 HOURS NEEDED November 16, 2021 1:00am November 30, 2021 12:18pm norethindrone 0.35 mg oral tablet (9 sources) Start: 04-15-2022 End: 10-24-2023 take 1 tablet by mouth once daily Norethindrone (Contraceptive) (Ortho Micronor) 0.35 mg tablet Discontinued 0.35 MG PO DAILY December 06, 2022 9:29am December 29, 2022 9:16am sertraline 100 mg oral tablet (13 sources) Serotonin Reuptake Inhibitor Start: 12-29-2022 End: 10-24-2023 take 100 mg by mouth once daily Sertraline Discontinued 100 MG PO DAILY December 29, 2022 9:13am October 24, 2023 11:22am Start: 12-06-2022 End: 12-29-2022 take 50 mg by mouth once daily Sertraline Discontinued 50 MG PO DAILY December 06, 2022 9:29am December 29, 2022 9:14am Start: 11-30-2021 End: 12-27-2021 take 1 tablet by mouth once daily Sertraline (Zoloft) 50 mg tablet Discontinued 50 MG PO DAILY November 30, 2021 1:00am December 27, 2021 2:45pm Problems Active Problems Problem Classification Problem Date Documented Da te Episodic/Chronic Abdominal pain (3 sources) Pelvic and perineal pain; Translations: [Pelvic and perineal pain] 12-29-2022 Episodic Anxiety disorders (10 sources) Anxiety; Translations: [Anxiety disorder, unspecified] Onset: 05-16-2024 10-24-2023 Chronic Contraceptive and procreative management (2 sources) Encounter for sterilization; Translations: [Encounter for sterilization] Onset: 05-16-2024 Episodic Diabetes or abnormal glucose tolerance complicating ; childbirth; or the puerperium (2 sources) Abnormal glucose complicating ; Translations: [Abnormal glucose complicating ] Onset: 05-16-2024 Episodic Headache; including migraine (10 sources) Migraine with aura; Translations: [Migraine with aura, not intractable, without status migrainosus] Onset: 05-16-2024 12-29-2022 Chronic Hemorrhage during ; abruptio placenta; placenta previa (4 sources) Antepartum hemorrhage; Translations: [Hemorrhage in early , unspecified] 07-08-2021 Episodic Malposition; malpresentation (8 sources) Breech presentation; Translations: [Maternal care for breech presentation, not applicable or unspecified] Episodic Miscellaneous mental health disorders (13 sources) depression; Translations: [ depression] Onset: 05-16-2024 Episodic Other complications of ; puerperium affecting management of mother (1 source) delivery - delivered; Translations: [Encounter for delivery without indication] Episodic Other complications of ; puerperium affecting management of mother (3 sources) Encounter for delivery without indication; Translations: [ delivery, without mention of indication, delivered, with or without mention of antepartum condition] Onset: 06-07-2024 Episodic Other complications of ; puerperium affecting management of mother (3 sources) Deliveries by ; Translations: [Encounter for delivery without indication] 11-29-2021 Episodic Other complications of (4 sources) Uterine size for dates discrepancy; Translations: [Uterine size-date discrepancy, unspecified trimester] 11-29-2021 Episodic Other complications of (6 sources) Uterine size-date discrepancy, unspecified trimester; Translations: [Uterine size date discrepancy, unspecified as to episode of care or not applicable] Episodic Other complications of (3 sources) High risk ; Translations: [Supervision of high risk , unspecified, unspecified trimester] 10-24-2023 Episodic Other complications of (7 sources) Supervision of high risk , unspecified, unspecified trimester; Translations: [Supervision of unspecified high-risk ] Onset: 06-07-2024 10-27-2023 Episodic Other complications of (2 sources) Other mental disorders complicating the puerperium; Translations: [Other mental disorders complicating the puerperium] Onset: 05-16-2024 Episodic Other connective tissue disease (4 sources) History of spinal fusion; Translations: [Arthrodesis status] 11-29-2021 Episodic Other connective tissue disease (8 sources) Arthrodesis status; Translations: [Arthrodesis status] Episodic Other connective tissue disease (1 source) Other specified disorders of muscle; Translations: [Other specified disorders of muscle] Onset: 07-08-2024 Episodic Other connective tissue disease (1 source) Separation of muscle (nontraumatic), other site; Translations: [Separation of muscle (nontraumatic), other site] Onset: 07-08-2024 Episodic Other and delivery including normal (20 sources) Patient encounter status; Translations: [Encounter for supervision of normal , unspecified, unspecified trimester] Onset: 11-10-2023 Episodic Residual codes; unclassified (4 sources) History of vaccination; Translations: [Personal history of other drug therapy] 07-08-2021 Episodic Residual codes; unclassified (7 sources) History of uterine scar from previous surgery; Translations: [Other postprocedural status] Onset: 05-16-2024 10-27-2023 Episodic Residual codes; unclassified (2 sources) Acquired absence of other genital organ(s); Translations: [Acquired absence of other genital organ(s)] Onset: 06-07-2024 Episodic Residual codes; unclassified (1 source) 38 weeks gestation of ; Translations: [38 weeks gestation of ] Onset: 06-07-2024 Episodic Residual codes; unclassified (1 source) 37 weeks gestation of ; Translations: [37 weeks gestation of ] Onset: 05-16-2024 Episodic Residual codes; unclassified (1 source) 36 weeks gestation of ; Translations: [36 weeks gestation of ] Onset: 05-08-2024 Episodic Residual codes; unclassified (1 source) 34 weeks gestation of ; Translations: [34 weeks gestation of ] Onset: 04-23-2024 Episodic Past or Other Problems Problem Classification Problem Date Documented Da te Episodic/Chronic Immunizations and screening for infectious disease (9 sources) Immunization due; Translations: [Encounter for immunization] Onset: 03-11-2024 07-22-2023 Episodic Residual codes; unclassified (1 source) 32 weeks gestation of ; Translations: [32 weeks gestation of ] Onset: 04-08-2024 Episodic Residual codes; unclassified (1 source) 28 weeks gestation of ; Translations: [28 weeks gestation of ] Onset: 03-11-2024 Episodic Residual codes; unclassified (1 source) 21 weeks gestation of ; Translations: [21 weeks gestation of ] Onset: 01-23-2024 Episodic Residual codes; unclassified (1 source) 8 weeks gestation of ; Translations: [8 weeks gestation of ] Onset: 10-27-2023 Episodic Results Test Name Value Interpretation Reference Range Facility Parent Aide Office Visit Reporton 07-08-2024 Parent Aide Office Visit Report [facility] [address], [address] [place] [address] OFFICE VISIT Date of Service: 07/08/24 MR#: [id number] Acct: [id number] Name: MYLES MCCANN Rep #: [id number] : 1990 Provider: Dr. Adry pond MD Age/Sex: 33/F [place] [facility] [place]: Signed Intake Vital Signs 05/27/24 05:40 06/10/24 09:03 07/08/24 10:05 07/08/24 10:07 Height 5 ft 1 in 5 ft 1 in 5 ft 1 in 5 ft 1 in Weight: 182 lb BMI 34.4 BP 123/86 H Intake Visit Reasons: visit (obstetrics) Chief Complaint: 6w pp declines IUD Balance Wheel Arm Burnisher Required: No Is patient in pain?: No Allergies No Known Allergies Allergy (Verified 07/08/24 10:06) Medications ???Medication ???Instructions ???Recorded ???Confirmed ???Type multivitamin no.47-iron fum 27 1 cap PO DAILY 10/24/23 07/08/24 History mg-folate no.1 1 mg-dha 300 mg capsule (PNV-DHA) : No PFSH Medical History delivery delivered Abnormal glucose affecting delivery delivered Headache Surgical History Status post bilateral salpingectomy [place] teeth extracted Previous back surgery Family History Grandfather CVA (cerebral vascular accident) Social History adopted: No household members: spouse and children number of children: 1 current occupational status: employed current occupation: [employer] pets and animals: Yes pets and animals: dog(s) history of recent travel: No sexually active: Yes Smoking Status: Never smoker alcohol intake: current details: not while substance use type: does not use well-balanced diet: daily or most days caffeine: No eating out: 1-3 times/week during the past year weight has: remained stable what type of physical activity do you participate in: walking frequency: 3-4 times per week duration: 15-30 minutes/day keyanna/zoroastrian: None seatbelt use: always do you feel safe at home: Yes 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 Date Name GA/Weeks Outcome Route Bth Weight Infant Gen Labor Lgth Anesthesia Del Locatn Provider FOB 11/16/21 Diane 41 live - full term Female [facility] Handy rcanthony 05/28/24 Alvaro 39 live - full term Male spinal [facility] David Colunga Delivery Date: 11/16/21 Last Updated by: Sarah Valero [facility] FTP 6cm CPD 41wk IOL Delivery Date: 05/28/24 Last Updated by: Mabel Mukherjee BS Depression Screen PHQ-2/9 PHQ-2 Over the last 2 weeks, how often have you been bothered by any of the following problems? 1. Little interest or pleasure in doing things: not at all 2. Feeling down, depressed, or hopeless: not at all Total score: 0 Post HPI Routine Follow-Up: Details: MYLES MCCANN is a 33 year old who presents for her post visit. Feeding: Breast Menses resumed: No [place] since delivery: Yes Emotional Support: Yes Last Pap:: 2021 Control Method: BS ROS Const Reports system reviewed and no additional complaints, except as documented GI Reports system reviewed and no additional complaints, except as documented, Denies bloating, Denies constipation, Denies nausea and Denies vomiting Reports system reviewed and no additional complaints, except as documented, Denies abnormal vaginal bleeding, Denies pelvic pain, Denies sexual dysfunction, Denies urinary incontinence, Denies urinary hesitancy, Denies urinary urgency and Denies vaginal discharge Skin/Breast Reports system reviewed and no additional complaints, except as documented and Reports as per HPI Psych Reports as per HPI Exam Const General: cooperative, healthy appearing, comfortable and no acute distress HENMT Head: normal to inspection Neck Neck: normal visual inspection and no lymphadenopathy Thyroid: thyroid normal Chest Breast inspection: normal inspection of the breasts and normal inspection of the axillae Breast palpation: normal palpation of the breasts and normal palpation of the axillae Resp Effort Inspection: normal respiratory effort GI Inspection: normal to inspection and incision (C/D/I) Palpation: soft, no hepatosplenomegaly and nontender General: bladder normal to palpation External Female Exam: normal external appearance and normal appearance of the urethra Urethra: kim (more content not included)... Normal [facility] Parent Aide Office Visit Reporton 06-10-2024 Parent Aide Office Visit Report [facility] [address], [address] [place] [address] OFFICE VISIT Date of Service: 06/10/24 MR#: [id number] Acct: [id number] Name: MYLES MCCANN Rep #: [id number] : 1990 Provider: Dr. Kay Mcknight DO Age/Sex: 33/F [place] [facility] [place]: Signed with Addenda ADDENDUM by Melanie Goodwin on 06/10/24 at 0942 Office Procedure Documentation entered by Melanie Goodwin 06/10/24 09:42: Immunizations flu vac qs 2022(6 ms up)CD(PF) 60 mcg(15 mcgx4)/0.5 mL IM syringe Performing Provider: Kay Khan DO Performing Location: [facility] Administered by: Melanie Goodwin on 06/10/24 09:41 Dose Route Admin Location Dispensed Lot Number Expiration Date NDC Man ufacturer 0.5 mL IM Right Deltoid 0.5 mL [id number] 02/26/25 40257-157-72 [employer] VIS Given Date VIS Provided VIS Publication Date 06/10/24 Single Vaccine 21 Eligibility Eligibility Date Funding Source Not Applicable Date cc: * Signed Intake Vital Signs 05/27/24 05:40 06/10/24 09:01 06/10/24 09:03 Height 5 ft 1 in 5 ft 1 in 5 ft 1 in Weight: 186 lb BMI 35.1 BP 136/90 H Intake Visit Reasons: 2 WK INCISION CHK Chief Complaint: 2w incision check Balance Wheel Arm Burnisher Required: No Is patient in pain?: No Allergies No Known Allergies Allergy (Verified 06/10/24 09:02) Medications ???Medication ???Instructions ???Recorded ???Confirmed ???Type multivitamin no.47-iron fum 27 1 cap PO DAILY 10/24/23 06/10/24 History mg-folate no.1 1 mg-dha 300 mg capsule (PNV-DHA) Is last menstrual period known: No Post menopausal: No Patient : No : Yes [facility] Medical History delivery delivered Abnormal glucose affecting delivery delivered Headache Surgical History Status post bilateral salpingectomy [place] teeth extracted Previous back surgery Family History Grandfather CVA (cerebral vascular accident) Social History adopted: No household members: spouse and children number of children: 1 current occupational status: employed current occupation: [employer] pets and animals: Yes pets and animals: dog(s) history of recent travel: No sexually active: Yes Smoking Status: Never smoker alcohol intake: current details: not while substance use type: does not use well-balanced diet: daily or most days caffeine: No eating out: 1-3 times/week during the past year weight has: remained stable what type of physical activity do you participate in: walking frequency: 3-4 times per week duration: 15-30 minutes/day keyanna/zoroastrian: None seatbelt use: always do you feel safe at home: Yes 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 Lochia is slowing down. History 2 Elective abortions Hx Para 2 Spontaneous abortions Hx # Term Pregnancies Ectopic pregnancies Hx # Pregnancies Multiple births # of living children 2 Past Pregnancies Del. Date Name GA/Weeks Outcome Route Bth Weight Gen Labor Lgth Anesthesia Del [facility] Provider FOB 11/16/21 Diane 41 live - full term Female [facility] Handy rcanthony 05/28/24 Alvaro 39 live - full term Male spinal [facility] David Colunga Delivery Date: 11/16/21 Last Updated by: Sarah Valero [facility] FTP 6cm CPD 41wk IOL Delivery Date: 05/28/24 Last Updated by: Mabel COHN ENT ENT: Reports system reviewed and no additional complaints, except as documented Cardio Card: Reports system reviewed and no additional complaints, except as documented Resp Resp: Denies cough, dyspnea or dyspnea on exertion GI GI: Denies abdominal pain, bloating or change in bowel habits : Denies vaginal odor or vaginal pruritus Musc Musc: Reports system reviewed and no additional complaints, except as documented Exam Const General: cooperative, healthy appearing and comfortable Resp Effort Inspection: normal respiratory effort GI Palpation: soft and nontender Rectal Exam: other Extrem General: no edema Coding Level of Care Code No Charge Diagnoses Status post bilateral salpingectomy Z90.79 delivery delivered O82 Assessment and Plan Assessment and Plan (1) Status post bilateral salpingectomy: Status: Acute (2) delivery delivered: (more content not included)... Normal [facility] CBC-Complete Blood Cnt No Di ffon 05-28-2024 Erythrocyte distribution width (RBC) [Ratio] 13.5 % Normal 11.6-14.6 [facility] Comment on above: Order Comment: Comme nts: Day #1 Reason for Laboratory Test Performed By: #### L 100.0500 #### [facility] [address] [place], [address] Hematocrit (Bld) [Volume fraction] 32.7 % Low 37-47 [facility] Comment on above: Order Comment: Comme nts: Day #1 Reason for Laboratory Test Performed By: #### L 100.0500 #### [facility] [address] [place], [address] Hemoglobin (Bld) [Mass/Vol] 11.1 g/dL Low 12.0-15.0 [facility] Comment on above: Order Comment: Comme nts: Day #1 Reason for Laboratory Test Performed By: #### L [id number] #### [facility] [address] [place], [address] MCH (RBC) [Entitic mass] 31.4 pg Normal 27.0-32.0 [facility] Comment on above: Order Comment: Comme nts: Day #1 Reason for Laboratory Test Performed By: #### L [id number] #### [facility] [address] [place], [place], [address] MCHC (RBC) [Mass/Vol] 33.9 g/dL Normal 32-36 [facility] Comment on above: Order Comment: Comme nts: Day #1 Reason for Laboratory Test Performed By: #### L 100.0500 #### [facility] [address] [place], [address] MCV (RBC) [Entitic vol] 92.6 fL Normal 81-99 [facility] Comment on above: Order Comment: Comme nts: Day #1 Reason for Laboratory Test Performed By: #### L 100.0500 #### [facility] [address] [place], [address] Platelet mean volume (Bld) [Entitic vol] 10.6 fL Normal 6.2-12.0 [facility] Comment on above: Order Comment: Comme nts: Day #1 Reason for Laboratory Test Performed By: #### L 100.0500 #### [facility] [address] [place], [address] Platelets (Bld) [#/Vol] 236 10*3/uL Normal 150-450 [facility] Comment on above: Order Comment: Comme nts: Day #1 Reason for Laboratory Test Performed By: #### L 100.0500 #### [facility] [address] [place], [address] RBC (Bld) [#/Vol] 3.53 10*6/uL Low 4.2-5.4 [facility] Comment on above: Order Comment: Comme nts: Day #1 Reason for Laboratory Test Performed By: #### L 100.0500 #### [facility] [address] [place], [address] RDW SD 45.3 fl High 35.1-43.9 [facility] Comment on above: Order Comment: Comme nts: Day #1 Reason for Laboratory Test Performed By: #### L 100.0500 #### [facility] [address] [place], [address] WBC (Bld) [#/Vol] 16.0 10*3/uL High 4.4-11.0 [facility] Comment on above: Order Comment: Comme nts: Day #1 Reason for Laboratory Test Performed By: #### L 100.0500 #### [facility] [address] [place], [address] Bedside Glucoseon 05-27-2024 FINGERSTICK GLU 106 mg/dL Normal 74-106 [facility] Comment on above: Result Comment: XAVI KOLB OF PATIENT CARE PER NURSING PROTOCOL Performed By: #### M 100.3400 #### [facility] [address] [place], [address] CBC W/Diff, Automatedon 05-03 Absolute Lymph 2.17 X10 3/uL Normal 0.83-4.51 [facility] Comment on above: Performed By: #### L 100.0100, BTS #### [facility] [address] [place], [address] Absolute Neut 10.1 X10 3/uL High 2.0-7.7 [facility] Comment on above: Performed By: #### L 100.0100, BTS #### [facility] [address] [place], [address] Basophils/100 WBC (Bld) 0.4 % Normal 0-1 [facility] Comment on above: Performed By: #### L 100.0100, BTS #### [facility] [address] [place], [address] Eosinophils/100 WBC (Bld) 0.7 % Normal 0-5 [facility] Comment on above: Performed By: #### L 100.0100, BTS #### [facility] [address] [place], [address] Erythrocyte distribution width (RBC) [Ratio] 13.2 % Normal 11.6-14.6 [facility] Comment on above: Performed By: #### L 100.0100, BTS #### [facility] [address] [place], [address] Hematocrit (Bld) [Volume fraction] 36.0 % Low 37-47 [facility] Comment on above: Performed By: #### L 100.0100, BTS #### [facility] [address] [place], [address] Hemoglobin (Bld) [Mass/Vol] 12.4 g/dL Normal 12.0-15.0 [facility] Comment on above: Performed By: #### L 100.0100, BTS #### [facility] [address] [place], [address] IG% 1.100 High 0.0-0.9 [facility] Comment on above: Result Comment: IG% - Immature Granulocytes (promyelocytes, myelocytes and metamyelocytes) > 1% indicates that a LEFT SHIFT is Present. Performed By: #### L 100.0100, BTS #### [facility] [address] [place], [address] Lymphocytes/100 WBC (Bld) 16.1 % Low 19-41 [facility] Comment on above: Performed By: #### L 100.0100, BTS #### [facility] [address] [place], [address] MCH (RBC) [Entitic mass] 31.8 pg Normal 27.0-32.0 [facility] Comment on above: Performed By: #### L 100.0100, BTS #### [facility] [address] [place], [address] MCHC (RBC) [Mass/Vol] 34.4 g/dL Normal 32-36 [facility] Comment on above: Performed By: #### L 100.0100, BTS #### [facility] [address] [place], [address] MCV (RBC) [Entitic vol] 92.3 fL Normal 81-99 [facility] Comment on above: Performed By: #### L 100.0100, BTS #### [facility] [address] [place], [address] Monocytes/100 WBC (Bld) 6.6 % Normal 0-10 [facility] Comment on above: Performed By: #### L 100.0100, BTS #### [facility] [address] [place], [address] Neutrophils/100 WBC (Bld) 75.1 % High 47-70 [facility] Comment on above: Performed By: #### L 100.0100, BTS #### [facility] [address] [place], [address] Nucleated RBC (Bld) [#/Vol] 0 10*3/uL Normal 0-5 [facility] Comment on above: Performed By: #### L 100.0100, BTS #### [facility] [address] [place], [address] Platelet mean volume (Bld) [Entitic vol] 10.6 fL Normal 6.2-12.0 [facility] Comment on above: Performed By: #### L 100.0100, BTS #### [facility] [address] [place], [address] Platelets (Bld) [#/Vol] 272 10*3/uL Normal 150-450 [facility] Comment on above: Performed By: #### L 100.0100, BTS #### [facility] [address] [place], [address] RBC (Bld) [#/Vol] 3.90 10*6/uL Low 4.2-5.4 [facility] Comment on above: Performed By: #### L 100.0100, BTS #### [facility] [address], [address] RDW SD 44.3 fl High 35.1-43.9 [facility] Comment on above: Performed By: #### L 100.0100, BTS #### [facility] [address] [place], [address] WBC (Bld) [#/Vol] 13.5 10*3/uL High 4.4-11.0 [facility] Comment on above: Performed By: #### L 100.0100, BTS #### [facility] [address] [place], [address] Discharge Instructionon 05-03 Discharge Instruction [facility] Medical Records Department [address] [place] [address] Instructions for Home/Discharge Instructions 05/27/24 0734 MR#: [id number] Acct: [id number] Name: MYLES MCCANN Rep #: [id number] : 1990 33 From: Adry Ponce MD PCP: Dr. Rylan Garcia, DO Status:ADM IN Discharge Instructions Diet Discharge Diet: No restrictions Activity Discharge Activity: May Not Drive (for 2 weeks or while taking narcotic pain medications.), May Shower and May Take a Tub Bath (in 7 days) May shower in (days): 0 May resume sexual activity in: 4-6 weeks Weight Bearing Status: Full weight bearing Lifting Restrictions: 20 pounds Dressing / Incision Call your doctor if your incision/area has: Continuous Slow Oozing, Sudden Increased Bleeding, Increased Pain/ Swelling, Increased Redness and Foul Smelling Discharge Call your doctor if you observe: Fever of 101 or Higher and Using more than 1 pad per hour (for 2 hours) Suture Line Care: Avoid Pulling/Pushing and Avoid Pinching/Bending Cleanse incision/area with: Soap Water and Keep Dressing Clean Dry Follow Up Care Please Follow Up With: Adry Ponce MD When: Call [phone] to make an appointment for an incision check in 1-2 weeks. Test Results: Test results from this visit will be discussed in further detail at your follow-up appointment, if applicable. Discharge Plan Admission Admit Date/Time: 05/27/24 05:24 Attending Provider: Adry Ponce Primary Care Provider: Rylan Garcia Discharge Orders/Prescriptions Prescriptions: New oxycodone-acetaminoph en [Percocet] 5-325 mg tablet 1 tab PO Q6H PRN (Reason: pain) 7 Days Qty: 10 0RF naproxen 500 mg tablet 500 mg PO BID PRN PRN (Reason: Pain) Qty: 30 1RF No Action PNV-DHA 27 mg iron-1 mg -300 mg capsule 1 cap PO DAILY promethazine 12.5 mg tablet 12.5 mg PO Q6H PRN (Reason: nausea and vomiting) Qty: 60 1RF Referrals / Follow Up: Rylan Garcia DO [Primary Care Provider] - Disposition Disposition (needs filled in before D/C Order can be placed): Home, Self Care 05/28/24 0729 Adry Ponce MD CC: Dr. Rylan Garcia DO Signed Normal [facility] L509.8000on 05-27-2024 Syphilis Abs Non-Reactive Normal [facility] Comment on above: Performed By: #### L 509.8000 #### [facility] [address] [facility] [place], [address] Operative Reporton 4 Operative Report [facility] Medical Records Department [address] [facility] [place] [address] Operative Report 05/27/24 0731 MR#: [id number] Acct: [id number] Name: MYLES MCCANN Rep #: [id number] : 1990 33 From: Adry Ponce MD PCP: Dr. Rylan Garcia, DO Status:ADM IN Location: PP680-2 Assessment Plan (1) Sterilization: COMMENT: plan BS at time of csection (2) Abnormal glucose affecting : COMMENT: nl 3 hr. GTT (3) Anxiety: (4) Hx of section: COMMENT: desires repeat c/s, plan at 39 weeks. -h/o back surgery. wants to request Dr. perez who did her spinal last delivery. RLTCS and BS scheduled for 05/27 @ 7:10 with (5) Supervision of high-risk : COMMENT: PRR, CELY 06/02/24, Alvaro torre CLAIR Trevizoana, Keanu (6) : QUALIFIERS: Weeks of gestation: 38 weeks Qualified Code(s): Z3A.38 - 38 weeks gestation of COMMENT: discussed genetic carrier testing, desires. NIPT low risk. Nl anatomy (7) Migraine with aura: COMMENT: had with covid otherwise does not- tolerates progestin only pill doesn't have on it. reviewed precautions that if migraines happen with pill especially with aura, to stop immediately. (8) depression: COMMENT: zoloft in past, currently stable off. (9) delivery delivered: COMMENT: RLTCS BS yelitza John 39 (10) Status post bilateral salpingectomy: Maternal Data Information CELY Calculator Estimated Delivery Date Method Current WG Current Estimate 06/02/24 LMP (Certain) 39w 2d Final CELY Source: LMP Details Operative Information Date of Procedure: 05/27/24 Pre-Operative Diagnosis: Previous Post-Operative Diagnosis: same Indications for : Repeat Elective (and bilateral salpingectomy) Indications Narrative: Surgeon: Adry Ponce MD Classification: Scheduled Procedure Type: low transverse mortar worker #1: Duncan Nichols Type of Anesthesia: Spinal Special Medications: none Antibiotic Given: Ancef 2 grams IV x1 Drain: Avendaño to straight drain Estimated Blood Loss: 700 Fluids Replaced: crystalloid Procedure Start Time: 07:52 Procedure Stop Time: 08:36 Findings Description of Procedure: Spinal anesthesia was placed without difficulty. Avendaño catheter was placed. The patient was placed in the dorsal supine position with leftward tilt. Patient was prepped and draped in the normal sterile fashion. Pfannenstiel skin incision was made with the scalpel and carried through to the underlying layer of fascia with the scalpel. Fascia was nicked in the midline and the incision extended laterally. The rectus bellies were dissected off superiorly and inferiorly with out complication both sharply and bluntly. The peritoneum was entered digitally. The incision was stretched and a low transverse uterine incision was made with the scalpel. The infant's head was delivered atraumatically followed by the anterior and posterior shoulders without complication the rest of the delivered. The cord was clamped and cut and the was handed off to awaiting nurse. The placenta was delivered spontaneously immediately following and was noted to be intact and have a three-vessel cord. The uterus was exteriorized cleared of all clots and debris, and the incision was closed in a single layer closure using #1 Monocryl. The ovaries and fallopian tubes were noted to be within normal limits. Patient had desired sterilization and was counseled preoperatively regarding irreversibility and permanency. Therefore bilateral fallopian tubes were elevated and transected across using a LigaSure device starting proximally to distally without complication the entire fallopian tubes were removed. The uterus was returned to the maternal abdomen and gutters were cleared of all clots and debris. The peritoneum was closed with 3-0 Monocryl in a running fashion. hemoblast used for hemostasis on muscles. Fascia was closed with 0 PDS in a running fashion. Subcutaneous tissue was copiously irrigated and the skin was closed with 3-0 Monocryl in a subcuticular fashion. Mepilex dressing was applied without complication. Patient was taken to recovery in stable condition. Amniotic Membrane Rupture Type: Artificial Amniotic Fluid Description: Clear Placenta Disposition: [facility] Cord Vessel Description: 3 Vessels Delayed Cord Clamping: Yes Complications Risks of Surgery Discussed w/Patient: Bleeding, Infection, Need for Future C-Sections and Injury to surrounding structure(s) including bowel and bladder Vaginal Delivery Complication Complications: None Admit VTE Documentation VTE Present on Admission: No VTE Mechan Device Prophylaxis: SCD's Multi Select Codes Urinary/Genital Urinary/Genital CPT Codes: 22047 C/S+TL (bilateral salpingectomy) and 26611 (more content not included)... Normal [facility] Pathology Specimen OBon 05-03 PATH. Spec OB SEE PATHOLOGY REPORT Normal [facility] Comment on above: Order Comment: Comme nts: Day #1 Reason for Laboratory Test Result Comment: Spec imen submitted to Anatomical Pathology Department for testing. Performed By: #### L 100.0500 #### [facility] [address] [place], [address] Surgery Specimen Level IIon 05-27-2024 Surgery Specimen Level II -------- Patient Age/Sex Location Account Attending Physician -------- MYLES MCCANN / [id number] Dr. Adry Ponce MD -------- Specimen: [id number] Received: 05/27/24 Status: YAMILE Richard Num: [id number] Spec Type: FALL TUBES Subm Dr: Dr. Adry Ponce MD HEADER OPERATION: Tubal ligation PRE-OP DIAGNOSIS: Sterilization TISSUE SUBMITTED: Bilateral fallopian tubes -------- MICROSCOPIC DIAGNOSIS Right fallopian tube, salpingectomy: Complete cross section of fallopian tube with no pathologic change. Left fallopian tube, salpingectomy: Complete cross section of fallopian tube with no pathologic change. AM: 05/28/2024 MICROSCOPIC DESCRIPTION Slides are reviewed. GROSS DESCRIPTION Received in fixative is one container labeled with the patient's name and designated bilateral fallopian tubes- stitch on right. The specimen consists of bilateral fallopian tubes including fimbrial ends. Right fallopian tube measuring 8.0 cm in length and 1.0 cm in diameter. Left fallopian tube measures 8.5cm in length and 1.0cm in diameter. Sections reveal unremarkable cut surfaces. Smash Fixer sections are submitted in two cassettes: 1- right fallopian tube, 2- left fallopian tube. / SJ:mr 05/27/2024 TC:4 CPT: 37838 x2 -------- Patient Age/Sex Location Account Attending Physician -------- MYLES MCCANN [id number] Dr. Adry Ponce MD -------- Signed (signature on file) Dr. Jesus Alberto Hays, DO 05/28/24 1204 -------- Normal [facility] Comment on above: Performed By: #### L 100.0500 #### [facility] [address] [place], [place], [address] Type AND Screenon 05-27-2024 Ab SCREEN GEL Negative Normal [facility] Comment on above: Order Comment: S Performed By: #### L 100.0100, BTS #### [facility] [address] [place], [place], [address] Parent Aide Office Visit Reporton 05-24-2024 Parent Aide Office Visit Report [facility] [address], [address] [place] [address] OFFICE VISIT Date of Service: 05/24/24 MR#: [id number] Acct: [id number] Name: MYLES MCCANN Rep #: [id number] : 1990 Provider: Dr. Adry pond MD Age/Sex: 33/F [place] [facility] Status: Signed Intake Vital Signs 12/22/23 09:00 05/16/24 08:40 05/24/24 08:57 05/24/24 09:00 Height 5 ft 1 in 5 ft 1 in 5 ft 1 in 5 ft 1 in Weight: 201 lb BMI 38.0 BP 124/82 H Intake Visit Reasons: 39 WK OB *SM/JV Balance Wheel Arm Burnisher Required: No Is patient in pain?: No Allergies No Known Allergies Allergy (Verified 05/24/24 08:58) Medications ???Medication ???Instructions ???Recorded ???Confirmed ???Type multivitamin no.47-iron fum 27 cap PO 10/24/23 05/24/24 History mg-folate no.1 1 mg-dha 300 mg capsule (PNV-DHA) promethazine 12.5 mg tablet 12.5 mg PO Q6H PRN nausea and 11/15/23 05/24/24 Rx vomiting #60 tabs Last Menstrual Period: 08/27/23 Zika: Zika virus screening: Negative : No Have you fallen in the past year?: No PFSH PFSH Medical History Abnormal glucose affecting delivery delivered Headache Surgical History W[place] teeth extracted Previous back surgery Family History Grandfather CVA (cerebral vascular accident) Social History adopted: No household members: spouse and children number of children: 1 current occupational status: employed current occupation: [employer] pets and animals: Yes pets and animals: dog(s) history of recent travel: No sexually active: Yes Smoking Status: Never smoker alcohol intake: current details: not while substance use type: does not use well-balanced diet: daily or most days caffeine: No eating out: 1-3 times/week during the past year weight has: remained stable what type of physical activity do you participate in: walking frequency: 3-4 times per week duration: 15-30 minutes/day keyanna/zoroastrian: None seatbelt use: always do you feel safe at home: Yes 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 Date Name GA/Weeks Outcome Route Bth Weight Gen Labor Lgth Anesthesia Del Hansatyenny Provider FOB 11/16/21 Diane 41 live - full term Female [facility] Handy adamentjairo Delivery Date: 11/16/21 Last Updated by: Sarah Valero LTCS FTP 6cm CPD 41wk IOL HPI 39 WK OB *SM/JV Details: MYLES MCCANN is a 33 year old who presents for routine OB visit. OB Visit CELY Calculator Estimated Delivery Date Method Current WG Current Estimate 06/02/24 LMP (Certain) 38w 5d Expected Delivery Route/Plan plans repeat c/s Specific Issue/Plans Covid status: [] Flu vaccine: [] Tdap vaccine: given Rhogam: [na LARC form signed: declined movement and labor precautions reviewed. Problem list reviewed and updated with the most current plan of care details and appropriate orders placed. Relevant counseling for the gestational age provided. Continue routine care and follow up unless otherwise noted in visit notes/problem list details Initial Weight: 190 lb Date -???-???-???-???-???- ???-???-???-???-???-? ??-???- EGA Weight BP Urine Prot -???-???-???-???-???- ???-???-???-???-???-? ??-???- Glucose FHR FuHt Pres Dilation -???-???-???-???-???- ???-???-???-???-???-? ??-???- Effaced St Visit Note 10/27/23 -???-???-???-???-???- ???-???-???-???-???-? ??-???- 8w 5d 190 lb (+0 oz) 129/84 -???-???-???-???-???- ???-???-???-???-???-? ??-???- -???-???-???-???-???- ???-???-???-???-???-? ??-???- Lc- CRL 18.8 con with LMP. desires nipt. 11/24/23 -???-???-???-???-???- ???-???-???-???-???-? ??-???- 12w 5d 187 lb 8 oz (-2 lb 8 oz) 128/84 Negative -???-???-???-???-???- ???-???-???-???-???-? ??-???- Negative -???-???-???-???-???- ???-???-???-???-???-? ??-???- JV- no lof, vaginal bleeding, or cramping. 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 (has a girl at home) planning rpt section with SM. 12/22/23 -???-???-???-???-???- ???-???-???-???-???-? ??-???- 16w 5d 193 lb 2 oz (+3 lb 2 oz) 124/82 Negative -???-???-???-???-???- ???-???-???-???-???-? ??-???- Negative 150 -???-???-???-???-???- ???-???-???-???-???-? 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 possible flutters. anatomy scan scheduled. 01/23/24 -???-???-???-???-???- ???-???-???-???-???-? ??-???- 21w 2d (more content not included)... Normal [facility] Parent Aide Office Visit Reporton 05-16-2024 Parent Aide Office Visit Report [facility] [address] [place] [address], [address] [place] [address] OFFICE VISIT Date of Service: 05/16/24 MR#: [id number] Acct: [id number] Name: MYLES MCCANN Rep #: [id number] : 1990 Provider: Dr. Adry pond MD Age/Sex: 33/F [place] [facility] Status: Signed Intake Vital Signs 12/22/23 09:00 05/08/24 08:53 05/16/24 08:35 05/16/24 08:40 Height 5 ft 1 in 5 ft 1 in 5 ft 1 in 5 ft 1 in Weight: 203 lb BMI 38.3 BP 118/79 Intake Visit Reasons: 38 WK OB *SM/JV Balance Wheel Arm Burnisher Required: No Is patient in pain?: No Allergies No Known Allergies Allergy (Verified 05/16/24 08:38) Medications ???Medication ???Instructions ???Recorded ???Confirmed ???Type multivitamin no.47-iron fum 27 cap PO 10/24/23 05/16/24 History mg-folate no.1 1 mg-dha 300 mg capsule (PNV-DHA) promethazine 12.5 mg tablet 12.5 mg PO Q6H PRN nausea and 11/15/23 05/16/24 Rx vomiting #60 tabs Last Menstrual Period: 08/27/23 Zika: Zika virus screening: Negative : No Have you fallen in the past year?: No PFSH PFSH Medical History Abnormal glucose affecting delivery delivered Headache Surgical History [place] teeth extracted Previous back surgery Family History Grandfather CVA (cerebral vascular accident) Social History adopted: No household members: spouse and children number of children: 1 current occupational status: employed current occupation: [employer] pets and animals: Yes pets and animals: dog(s) history of recent travel: No sexually active: Yes Smoking Status: Never smoker alcohol intake: current details: not while substance use type: does not use well-balanced diet: daily or most days caffeine: No eating out: 1-3 times/week during the past year weight has: remained stable what type of physical activity do you participate in: walking frequency: 3-4 times per week duration: 15-30 minutes/day keyanna/zoroastrian: None seatbelt use: always do you feel safe at home: Yes 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 Date Name GA/Weeks Outcome Route Bth Weight Gen Labor Lgth Anesthesia Del Locatn Provider FOB 11/16/21 Diane 41 live - full term Female [facility] Ma rcanthony Delivery Date: 11/16/21 Last Updated by: Sarah Valero LTCS FTP 6cm CPD 41wk IOL HPI 38 WK OB *SM/JV Details: MYLES MCCANN is a 33 year old who presents for routine OB visit. OB Visit CELY Calculator Estimated Delivery Date Method Current WG Current Estimate 06/02/24 LMP (Certain) 37w 4d Expected Delivery Route/Plan plans repeat c/s Specific Issue/Plans Covid status: [] Flu vaccine: [] Tdap vaccine: given Rhogam: [na LARC form signed: declined movement and labor precautions reviewed. Problem list reviewed and updated with the most current plan of care details and appropriate orders placed. Relevant counseling for the gestational age provided. Continue routine care and follow up unless otherwise noted in visit notes/problem list details Initial Weight: 190 lb Date -???-???-???-???-???- ???-???-???-???-???-? ??-???- EGA Weight BP Urine Prot -???-???-???-???-???- ???-???-???-???-???-? ??-???- Glucose FHR FuHt Pres Dilation -???-???-???-???-???- ???-???-???-???-???-? ??-???- Effaced St Visit Note 10/27/23 -???-???-???-???-???- ???-???-???-???-???-? ??-???- 8w 5d 190 lb (+0 oz) 129/84 -???-???-???-???-???- ???-???-???-???-???-? ??-???- -???-???-???-???-???- ???-???-???-???-???-? ??-???- Lc- CRL 18.8 con with LMP. desires nipt. 11/24/23 -???-???-???-???-???- ???-???-???-???-???-? ??-???- 12w 5d 187 lb 8 oz (-2 lb 8 oz) 128/84 Negative -???-???-???-???-???- ???-???-???-???-???-? ??-???- Negative -???-???-???-???-???- ???-???-???-???-???-? ??-???- JV- no lof, vaginal bleeding, or cramping. 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 (has a girl at home) planning rpt section with SM. 12/22/23 -???-???-???-???-???- ???-???-???-???-???-? ??-???- 16w 5d 193 lb 2 oz (+3 lb 2 oz) 124/82 Negative -???-???-???-???-???- ???-???-???-???-???-? ??-???- Negative 150 -???-???-???-???-???- ???-???-???-???-???-? 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 possible flutters. anatomy scan scheduled. 01/23/24 -???-???-???-???-???- ???-???-???-???-???-? ??-???- 21w 2d 1 (more content not included)... Normal [facility] Rule out Beta Strep (Grp. B) on 05-11-2024 LATISHA Group B Beta Streptococcus is not isolated. Normal [facility] Comment on above: Performed By: #### M 100.7485 #### [facility] [address] [place], [place], [address] Parent Aide Office Visit Reporton 05-08-2024 Parent Aide Office Visit Report [facility] [address] [place] [address] OFFICE VISIT Date of Service: 05/08/24 MR#: [id number] Acct: [id number] Name: MYLES MCCANN Rep #: [id number] : 1990 Provider: Dr. Adry pond MD Age/Sex: 33/F [place] [facility]: Signed Intake Vital Signs 12/22/23 09:00 02/16/24 14:44 04/23/24 08:37 05/08/24 08:49 05/08/24 08:53 Height 5 ft 1 in 5 ft 1 in 5 ft 1 in 5 ft 1 in 5 ft 1 in Weight: 203 lb BMI 38.3 BP 110/73 Intake Visit Reasons: 36 WK OB *SM/JV Balance Wheel Arm Burnisher Required: No Is patient in pain?: No Allergies No Known Allergies Allergy (Verified 05/08/24 08:49) Medications ???Medication ???Instructions ???Recorded ???Confirmed ???Type multivitamin no.47-iron fum 27 cap PO 10/24/23 05/08/24 History mg-folate no.1 1 mg-dha 300 mg capsule (PNV-DHA) promethazine 12.5 mg tablet 12.5 mg PO Q6H PRN nausea and 11/15/23 05/08/24 Rx vomiting #60 tabs Last Menstrual Period: 08/27/23 Zika: Zika virus screening: Negative : No Have you fallen in the past year?: No PFSH PFSH Medical History Abnormal glucose affecting delivery delivered Headache Surgical History [place] teeth extracted Previous back surgery Family History Grandfather CVA (cerebral vascular accident) Social History adopted: No household members: spouse and children number of children: 1 current occupational status: employed current occupation: [employer] pets and animals: Yes pets and animals: dog(s) history of recent travel: No sexually active: Yes Smoking Status: Never smoker alcohol intake: current details: not while substance use type: does not use well-balanced diet: daily or most days caffeine: No eating out: 1-3 times/week during the past year weight has: remained stable what type of physical activity do you participate in: walking frequency: 3-4 times per week duration: 15-30 minutes/day keyanna/zoroastrian: None seatbelt use: always do you feel safe at home: Yes 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 Date Name GA/Weeks Outcome Route Bth Weight Infant Gen Labor Lgth Anesthesia Del Locatn Provider FOB 11/16/21 Diane 41 live - full term Female [facility] Handy rcanthomartha Delivery Date: 11/16/21 Last Updated by: Sarah Valero [facility] FTP 6cm CPD 41wk IOL HPI 36 WK OB *SM/JV Details: MYLES MCCANN is a 33 year old who presents for routine OB visit. OB Visit CELY Calculator Estimated Delivery Date Method Current WG Current Estimate 06/02/24 LMP (Certain) 36w 3d Expected Delivery Route/Plan plans repeat c/s Specific Issue/Plans Covid status: [] Flu vaccine: [] Tdap vaccine: given Rhogam: [na LARC form signed: declined movement and labor precautions reviewed. Problem list reviewed and updated with the most current plan of care details and appropriate orders placed. Relevant counseling for the gestational age provided. Continue routine care and follow up unless otherwise noted in visit notes/problem list details Initial Weight: 190 lb Date -???-???-???-???-???- ???-???-???-???-???-? ??-???- EGA Weight BP Urine Prot -???-???-???-???-???- ???-???-???-???-???-? ??-???- Glucose FHR FuHt Pres Dilation -???-???-???-???-???- ???-???-???-???-???-? ??-???- Effaced St Visit Note 10/27/23 -???-???-???-???-???- ???-???-???-???-???-? ??-???- 8w 5d 190 lb (+0 oz) 129/84 -???-???-???-???-???- ???-???-???-???-???-? ??-???- -???-???-???-???-???- ???-???-???-???-???-? ??-???- Lc- CRL 18.8 con with LMP. desires nipt. 11/24/23 -???-???-???-???-???- ???-???-???-???-???-? ??-???- 12w 5d 187 lb 8 oz (-2 lb 8 oz) 128/84 Negative -???-???-???-???-???- ???-???-???-???-???-? ??-???- Negative -???-???-???-???-???- ???-???-???-???-???-? ??-???- JV- no lof, vaginal bleeding, or cramping. 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 (has a girl at home) planning rpt section with SM. 12/22/23 -???-???-???-???-???- ???-???-???-???-???-? ??-???- 16w 5d 193 lb 2 oz (+3 lb 2 oz) 124/82 Negative -???-???-???-???-???- ???-???-???-???-???-? ??-???- Negative 150 -???-???-???-???-???- ???-???-???-???-???-? 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 possible flutters. anatomy scan scheduled. 01/23/24 -???-???-???-???-???- (more content not included)... Normal [facility] Parent Aide Office Visit Reporton 04-23-2024 Parent Aide Office Visit Report [facility] [address] [place] [address] OFFICE VISIT Date of Service: 04/23/24 MR#: [id number] Acct: [id number] Name: MYLES MCCANN Rep #: [id number] : 1990 Provider: Dr. Adry pond MD Age/Sex: 33/F [place] [facility] [place]: Signed Intake Vital Signs 12/22/23 09:00 04/08/24 08:34 04/23/24 08:31 04/23/24 08:37 Height 5 ft 1 in 5 ft 1 in 5 ft 1 in 5 ft 1 in Weight: 200 lb 6 oz BMI 37.8 BP 114/78 Intake Visit Reasons: 34 WK OB *SM/JV Balance Wheel Arm Burnisher Required: No Is patient in pain?: No Allergies No Known Allergies Allergy (Verified 04/23/24 08:36) Medications ???Medication ???Instructions ???Recorded ???Confirmed ???Type multivitamin no.47-iron fum 27 cap PO 10/24/23 04/23/24 History mg-folate no.1 1 mg-dha 300 mg capsule (PNV-DHA) promethazine 12.5 mg tablet 12.5 mg PO Q6H PRN nausea and 11/15/23 04/23/24 Rx vomiting #60 tabs Last Menstrual Period: 08/27/23 Zika: Zika virus screening: Negative : No PFSH PFSH Medical History Abnormal glucose affecting delivery delivered Headache Surgical History [place] teeth extracted Previous back surgery Family History Grandfather CVA (cerebral vascular accident) Social History adopted: No household members: spouse and children number of children: 1 current occupational status: employed current occupation: [employer] pets and animals: Yes pets and animals: dog(s) history of recent travel: No sexually active: Yes Smoking Status: Never smoker alcohol intake: current details: not while substance use type: does not use well-balanced diet: daily or most days caffeine: No eating out: 1-3 times/week during the past year weight has: remained stable what type of physical activity do you participate in: walking frequency: 3-4 times per week duration: 15-30 minutes/day keyanna/zoroastrian: None seatbelt use: always do you feel safe at home: Yes 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 Date Name GA/Weeks Outcome Route Bth Weight Infant Gen Labor Lgth Anesthesia Del Locatn Provider FOB 11/16/21 Diane 41 live - full term Female [facility] rcanthony Delivery Date: 11/16/21 Last Updated by: Sarah Valero [facility] FTP 6cm CPD 41wk IOL HPI 34 WK OB *SM/JV Details: MYLES MCCANN is a 33 year old who presents for routine OB visit. OB Visit CELY Calculator Estimated Delivery Date Method Current Current Estimate 06/02/24 LMP (Certain) 34w 2d Expected Delivery Route/Plan plans repeat c/s Specific Issue/Plans Covid status: [] Flu vaccine: [] Tdap vaccine: given Rhogam: [] LARC form signed: [] Problem list reviewed and updated with the most current plan of care details and appropriate orders placed. Relevant counseling for the gestational age provided. Continue routine care and follow up unless otherwise noted in visit notes/problem list details Initial Weight: 190 lb Date -???-???-???-???-???- ???-???-???-???-???-? ??-???- EGA Weight BP Urine Prot -???-???-???-???-???- ???-???-???-???-???-? ??-???- Glucose FHR FuHt Pres Dilation -???-???-???-???-???- ???-???-???-???-???-? ??-???- Effaced St Visit Note 10/27/23 -???-???-???-???-???- ???-???-???-???-???-? ??-???- 8w 5d 190 lb (+0 oz) 129/84 -???-???-???-???-???- ???-???-???-???-???-? ??-???- -???-???-???-???-???- ???-???-???-???-???-? ??-???- Lc- CRL 18.8 con with LMP. desires nipt. 11/24/23 -???-???-???-???-???- ???-???-???-???-???-? ??-???- 12w 5d 187 lb 8 oz (-2 lb 8 oz) 128/84 Negative -???-???-???-???-???- ???-???-???-???-???-? ??-???- Negative -???-???-???-???-???- ???-???-???-???-???-? ??-???- JV- no lof, vaginal bleeding, or cramping. 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 (has a girl at home) planning rpt section with SM. 12/22/23 -???-???-???-???-???- ???-???-???-???-???-? ??-???- 16w 5d 193 lb 2 oz (+3 lb 2 oz) 124/82 Negative -???-???-???-???-???- ???-???-???-???-???-? ??-???- Negative 150 -???-???-???-???-???- ???-???-???-???-???-? 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 possible flutters. anatomy scan scheduled. 01/23/24 -???-???-???-???-???- ???-???-???-???-???-? ??-???- 21w 2d 196 lb (+6 lb) 133/84 Negative -???-???-???-???-???- (more content not included)... Normal [facility] Parent Aide Office Visit Reporton 04-08-2024 Parent Aide Office Visit Report [facility] [address] [place] [address] OFFICE VISIT Date of Service: 04/08/24 MR#: [id number] Acct: [id number] Name: MYLES MCCANN Rep #: [id number] : 1990 Provider: Dr. Kay Mcknight DO Age/Sex: 33/F [place] [facility] [place]: Signed Intake Vital Signs 12/22/23 09:00 03/25/24 08:23 04/08/24 08:33 04/08/24 08:34 Height 5 ft 1 in 5 ft 1 in 5 ft 1 in 5 ft 1 in Weight: 202 lb BMI 38.1 BP 109/74 Intake Visit Reasons: 32 WK OB *SM/JV Balance Wheel Arm Burnisher Required: No Is patient in pain?: No Allergies No Known Allergies Allergy (Verified 04/08/24 08:33) Medications ???Medication ???Instructions ???Recorded ???Confirmed ???Type multivitamin no.47-iron fum 27 cap PO 10/24/23 04/08/24 History mg-folate no.1 1 mg-dha 300 mg capsule (PNV-DHA) promethazine 12.5 mg tablet 12.5 mg PO Q6H PRN nausea and 11/15/23 04/08/24 Rx vomiting #60 tabs Last Menstrual Period: 08/27/23 Zika: Zika virus screening: Negative : No Have you fallen in the past year?: No PFSH PFSH Medical History Abnormal glucose affecting delivery delivered Headache Surgical History [place] teeth extracted Previous back surgery Family History Grandfather CVA (cerebral vascular accident) Social History adopted: No household members: spouse and children number of children: 1 current occupational status: employed current occupation: [employer] pets and animals: Yes pets and animals: dog(s) history of recent travel: No sexually active: Yes Smoking Status: Never smoker alcohol intake: current details: not while substance use type: does not use well-balanced diet: daily or most days caffeine: No eating out: 1-3 times/week during the past year weight has: remained stable what type of physical activity do you participate in: walking frequency: 3-4 times per week duration: 15-30 minutes/day keyanna/zoroastrian: None seatbelt use: always do you feel safe at home: Yes 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 Date Name GA/Weeks Outcome Route Bth Weight Gen Labor Lgth Anesthesia Del Locatn Provider FOB 11/16/21 Diane 41 live - full term Female [facility] Handy rcanthony Delivery Date: 11/16/21 Last Updated by: Sarah Valero [facility] FTP 6cm CPD 41wk IOL HPI 32 WK OB *SM/JV Details: MYLES MCCANN is a 33 year old who presents for routine OB visit. OB Visit CELY Calculator Estimated Delivery Date Method Current WG Current Estimate 06/02/24 LMP (Certain) 32w 1d Expected Delivery Route/Plan plans repeat c/s Specific Issue/Plans Covid status: [] Flu vaccine: [] Tdap vaccine: given Rhogam: [] LARC form signed: [] Problem list reviewed and updated with the most current plan of care details and appropriate orders placed. Relevant counseling for the gestational age provided. Continue routine care and follow up unless otherwise noted in visit notes/problem list details Initial Weight: 190 lb Date -???-???-???-???-???- ???-???-???-???-???-? ??-???- EGA Weight BP Urine Prot -???-???-???-???-???- ???-???-???-???-???-? ??-???- Glucose FHR FuHt Pres Dilation -???-???-???-???-???- ???-???-???-???-???-? ??-???- Effaced St Visit Note 10/27/23 -???-???-???-???-???- ???-???-???-???-???-? ??-???- 8w 5d 190 lb (+0 oz) 129/84 -???-???-???-???-???- ???-???-???-???-???-? ??-???- -???-???-???-???-???- ???-???-???-???-???-? ??-???- Lc- CRL 18.8 con with LMP. desires nipt. 11/24/23 -???-???-???-???-???- ???-???-???-???-???-? ??-???- 12w 5d 187 lb 8 oz (-2 lb 8 oz) 128/84 Negative -???-???-???-???-???- ???-???-???-???-???-? ??-???- Negative -???-???-???-???-???- ???-???-???-???-???-? ??-???- JV- no lof, vaginal bleeding, or cramping. 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 (has a girl at home) planning rpt section with SM. 12/22/23 -???-???-???-???-???- ???-???-???-???-???-? ??-???- 16w 5d 193 lb 2 oz (+3 lb 2 oz) 124/82 Negative -???-???-???-???-???- ???-???-???-???-???-? ??-???- Negative 150 -???-???-???-???-???- ???-???-???-???-???-? 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 possible flutters. anatomy scan scheduled. 01/23/24 -???-???-???-???-???- ???-???-???-???-???-? ??-???- 21w 2d 196 lb (+6 lb) 133/84 Negative -???-??? (more content not included)... Normal [facility] Parent Aide Office Visit Reporton 03-25-2024 Parent Aide Office Visit Report [facility] [address] [place] [address] OFFICE VISIT Date of Service: 03/25/24 MR#: [id number] Acct: [id number] Name: MYLES MCCANN Rep #: [id number] : 1990 Provider: Dr. Kay Mcknight DO Age/Sex: 33/F [place] [facility] [place]: Signed Intake Vital Signs 12/22/23 09:00 03/11/24 10:40 03/25/24 08:21 03/25/24 08:23 Height 5 ft 1 in 5 ft 1 in 5 ft 1 in 5 ft 1 in Weight: 198 lb 4 oz BMI 37.4 BP 117/78 Intake Visit Reasons: 30 WK OB *SM/JV Balance Wheel Arm Burnisher Required: No Is patient in pain?: No Allergies No Known Allergies Allergy (Verified 03/25/24 08:21) Medications ???Medication ???Instructions ???Recorded ???Confirmed ???Type multivitamin no.47-iron fum 27 cap PO 10/24/23 03/25/24 History mg-folate no.1 1 mg-dha 300 mg capsule (PNV-DHA) promethazine 12.5 mg tablet 12.5 mg PO Q6H PRN nausea and 11/15/23 03/25/24 Rx vomiting #60 tabs Last Menstrual Period: 08/27/23 Zika: Zika virus screening: Negative : No PFSH PFSH Medical History Abnormal glucose affecting delivery delivered Headache Surgical History [place] teeth extracted Previous back surgery Family History Grandfather CVA (cerebral vascular accident) Social History adopted: No household members: spouse and children number of children: 1 current occupational status: employed current occupation: [employer] pets and animals: Yes pets and animals: dog(s) history of recent travel: No sexually active: Yes Smoking Status: Never smoker alcohol intake: current details: not while substance use type: does not use well-balanced diet: daily or most days caffeine: No eating out: 1-3 times/week during the past year weight has: remained stable what type of physical activity do you participate in: walking frequency: 3-4 times per week duration: 15-30 minutes/day keyanna/zoroastrian: None seatbelt use: always do you feel safe at home: Yes 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 Date Name GA/Weeks Outcome Route Bth Weight Infant Gen Labor Lgth Anesthesia Del Locatn Provider FOB 11/16/21 Diane 41 live - full term Female [facility] Handy rcantjairo Delivery Date: 11/16/21 Last Updated by: Sarah Valero [facility] FTP 6cm CPD 41wk IOL HPI 30 WK OB *SM/JV Details: MYLES MCCANN is a 33 year old who presents for routine OB visit. OB Visit CELY Calculator Estimated Delivery Date Method Current WG Current Estimate 06/02/24 LMP (Certain) 30w 1d Expected Delivery Route/Plan plans repeat c/s Specific Issue/Plans Covid status: [] Flu vaccine: [] Tdap vaccine: given Rhogam: [] LARC form signed: [] Problem list reviewed and updated with the most current plan of care details and appropriate orders placed. Relevant counseling for the gestational age provided. Continue routine care and follow up unless otherwise noted in visit notes/problem list details Initial Weight: 190 lb Date -???-???-???-???-???- ???-???-???-???-???-? ??-???- EGA Weight BP Urine Prot -???-???-???-???-???- ???-???-???-???-???-? ??-???- Glucose FHR FuHt Pres Dilation -???-???-???-???-???- ???-???-???-???-???-? ??-???- Effaced St Visit Note 10/27/23 -???-???-???-???-???- ???-???-???-???-???-? ??-???- 8w 5d 190 lb (+0 oz) 129/84 -???-???-???-???-???- ???-???-???-???-???-? ??-???- -???-???-???-???-???- ???-???-???-???-???-? ??-???- Lc- CRL 18.8 con with LMP. desires nipt. 11/24/23 -???-???-???-???-???- ???-???-???-???-???-? ??-???- 12w 5d 187 lb 8 oz (-2 lb 8 oz) 128/84 Negative -???-???-???-???-???- ???-???-???-???-???-? ??-???- Negative -???-???-???-???-???- ???-???-???-???-???-? ??-???- JV- no lof, vaginal bleeding, or cramping. 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 (has a girl at home) planning rpt section with SM. 12/22/23 -???-???-???-???-???- ???-???-???-???-???-? ??-???- 16w 5d 193 lb 2 oz (+3 lb 2 oz) 124/82 Negative -???-???-???-???-???- ???-???-???-???-???-? ??-???- Negative 150 -???-???-???-???-???- ???-???-???-???-???-? 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 possible flutters. anatomy scan scheduled. 01/23/24 -???-???-???-???-???- ???-???-???-???-???-? ??-???- 21w 2d 196 lb (+6 lb) 133/84 Negative -???-???-???-???-???- ???-?? (more content not included)... Normal [facility] Gestational GTT 3HR 100gon 0 - 3HR GTT- GEST. High [facility] Comment on above: Order Comment: Comme nts: Day #1 Reason for Laboratory Test Result Comment: FAST ING 106 H Col: 03/21/24 0711 GLUCOSE TOLERANCE TEST FOR Reference Interval GESTATIONAL DIABETES Fasting <105 mg/dL 1 hour <190 mg/dl 2 hour <165 mg/dl 3 hour <145 mg/dl 1 HR GLU 166 Col: 03/21/24 0814 2 HR GLU 141 Col: 03/21/24 0912 3 HR GLU 108 Col: 03/21/24 1014 Performed By: #### L 100.0500 #### [facility] [address] [place], [place], [id number] CBC W/Diff, Automatedon 03-02 Absolute Lymph 1.58 X10 3/uL Normal 0.83-4.51 [facility] Comment on above: Performed By: #### L 509.8000, L3890.6005, L100.0100, L501.0250 #### [facility] [address] [place], [address] Absolute Neut 9.4 X10 3/uL High 2.0-7.7 [facility] Comment on above: Performed By: #### L 509.8000, L3890.6005, L100.0100, L501.0250 #### [facility] [address] [place], [address] Basophils/100 WBC (Bld) 0.3 % Normal 0-1 [facility] Comment on above: Performed By: #### L 509.8000, L3890.6005, L100.0100, L501.0250 #### [facility] [address] [place], [address] Eosinophils/100 WBC (Bld) 0.6 % Normal 0-5 [facility] Comment on above: Performed By: #### L 509.8000, L3890.6005, L100.0100, L501.0250 #### [facility] [address] [place], [address] Erythrocyte distribution width (RBC) [Ratio] 12.7 % Normal 11.6-14.6 [facility] Comment on above: Performed By: #### L 509.8000, L3890.6005, L100.0100, L501.0250 #### [facility] [address] [place], [address] Hematocrit (Bld) [Volume fraction] 35.3 % Low 37-47 [facility] Comment on above: Performed By: #### L 509.8000, L3890.6005, L100.0100, L501.0250 #### [facility] [address] [place], [address] Hemoglobin (Bld) [Mass/Vol] 12.0 g/dL Normal 12.0-15.0 [facility] Comment on above: Performed By: #### L 509.8000, L3890.6005, L100.0100, L501.0250 #### [facility] [address] [place], [address] IG% 0.900 Normal 0.0-0.9 [facility] Comment on above: Result Comment: IG% - Immature Granulocytes (promyelocytes, myelocytes and metamyelocytes) > 1% indicates that a LEFT SHIFT is Present. Performed By: #### L 509.8000, L3890.6005, L100.0100, L501.0250 #### [facility] [address] [place], [address] Lymphocytes/100 WBC (Bld) 13.4 % Low 19-41 [facility] Comment on above: Performed By: #### L 509.8000, L3890.6005, L100.0100, L501.0250 #### [facility] [address] [place], [address] MCH (RBC) [Entitic mass] 31.0 pg Normal 27.0-32.0 [facility] Comment on above: Performed By: #### L 509.8000, L3890.6005, L100.0100, L501.0250 #### [facility] [address] [place], [address] MCHC (RBC) [Mass/Vol] 34.0 g/dL Normal 32-36 [facility] Comment on above: Performed By: #### L 509.8000, L3890.6005, L100.0100, L501.0250 #### [facility] [address] [place], [address] MCV (RBC) [Entitic vol] 91.2 fL Normal 81-99 [facility] Comment on above: Performed By: #### L 509.8000, L3890.6005, L100.0100, L501.0250 #### [facility] [address] [place], [address] Monocytes/100 WBC (Bld) 4.8 % Normal 0-10 [facility] Comment on above: Performed By: #### L 509.8000, L3890.6005, L100.0100, L501.0250 #### [facility] [address] [place], [address] Neutrophils/100 WBC (Bld) 80.0 % High 47-70 [facility] Comment on above: Performed By: #### L 509.8000, L3890.6005, L100.0100, L501.0250 #### [facility] [address] [place], [address] Nucleated RBC (Bld) [#/Vol] 0 10*3/uL Normal 0-5 [facility] Comment on above: Performed By: #### L 509.8000, L3890.6005, L100.0100, L501.0250 #### [facility] [address] [place], [address] Platelet mean volume (Bld) [Entitic vol] 9.4 fL Normal 6.2-12.0 [facility] Comment on above: Performed By: #### L 509.8000, L3890.6005, L100.0100, L501.0250 #### [facility] [address] [place], [address] Platelets (Bld) [#/Vol] 344 10*3/uL Normal 150-450 [facility] Comment on above: Performed By: #### L 509.8000, L3890.6005, L100.0100, L501.0250 #### [facility] [address] [place], [address] RBC (Bld) [#/Vol] 3.87 10*6/uL Low 4.2-5.4 [facility] Comment on above: Performed By: #### L 509.8000, L3890.6005, L100.0100, L501.0250 #### [facility] [address] [place], [address] RDW SD 41.8 fl Normal 35.1-43.9 [facility] Comment on above: Performed By: #### L 509.8000, L3890.6005, L100.0100, L501.0250 #### [facility] [address] [place], [address] WBC (Bld) [#/Vol] 11.8 10*3/uL High 4.4-11.0 [facility] Comment on above: Performed By: #### L 509.8000, L3890.6005, L100.0100, L501.0250 #### [facility] [address] [place], [address] Glucose Challenge Gest 1H 50 dyana 03-11-2024 GLU GEST 50g 1H 151 mg/dL High 70-140 [facility] Comment on above: Performed By: #### L 509.8000, L3890.6005, L100.0100, L501.0250 #### [facility] [address] [place], [address] HIV - WCHon 03-11-2024 HIV Non-Reactive Normal Nonreactive [facility] Comment on above: Performed By: #### L 509.8000, L3890.6005, L100.0100, L501.0250 #### [facility] [address] [place], [address] L509.8000on 03-11-2024 Syphilis Abs Non-Reactive Normal [facility] Comment on above: Performed By: #### L 509.8000, L3890.6005, L100.0100, L501.0250 #### [facility] [address] [place], [address] Parent Aide Office Visit Reporton 03-11-2024 Parent Aide Office Visit Report [facility] [address] [place] [address] OFFICE VISIT Date of Service: 03/11/24 MR#: [id number] Acct: [id number] Name: MYLES MCCANN Rep #: [id number] : 1990 Provider: Dr. Adry pond MD Age/Sex: 33/F [place] [facility] Status: Signed with Addenda ADDENDUM by Melanie Goodwin on 03/11/24 at 1355 Office Procedure Documentation entered by Melanie Goodwin 03/11/24 13:55: Immunizations Adacel(Tdap Adolesn/Adult)(PF) 2 Lf-(2.5-5-3-5)-5 Lf/0.5 mL IM syringe Performing Provider: Adry Ponce MD Performing Location: [facility] Administered by: Melanie Goodwin on 03/11/24 13:54 Dose Route Admin Location Dispensed Lot Number Expiration Date [place] Man ufacturer 0.5 mL IM Right Deltoid 0.5 mL [id number] 11/11/25 [id number] [employer] VIS Given Date VIS Provided VIS Publication Date 03/11/24 Single Vaccine 21 Eligibility Eligibility Date Funding Source Not Applicable Date cc: * Signed Intake Vital Signs 12/22/23 09:00 02/16/24 14:44 03/11/24 10:39 03/11/24 10:40 Height 5 ft 1 in 5 ft 1 in 5 ft 1 in 5 ft 1 in Weight: 199 lb BMI 37.5 BP 110/73 Intake Visit Reasons: 28 WK OB/ GLUCOSE*SM/JV Balance Wheel Arm Burnisher Required: No Is patient in pain?: No Allergies No Known Allergies Allergy (Verified 03/11/24 10:39) Medications ???Medication ???Instructions ???Recorded ???Confirmed ???Type multivitamin no.47-iron fum 27 cap PO 10/24/23 03/11/24 History mg-folate no.1 1 mg-dha 300 mg capsule (PNV-DHA) promethazine 12.5 mg tablet 12.5 mg PO Q6H PRN nausea and 11/15/23 03/11/24 Rx vomiting #60 tabs Last Menstrual Period: 08/27/23 Zika: Zika virus screening: Negative : No PFSH PFSH Medical History delivery delivered Headache Surgical History Winfall teeth extracted Previous back surgery Family History Grandfather CVA (cerebral vascular accident) Social History adopted: No household members: spouse and children number of children: 1 current occupational status: employed current occupation: [employer] pets and animals: Yes pets and animals: dog(s) history of recent travel: No sexually active: Yes Smoking Status: Never smoker alcohol intake: current details: not while substance use type: does not use well-balanced diet: daily or most days caffeine: No eating out: 1-3 times/week during the past year weight has: remained stable what type of physical activity do you participate in: walking frequency: 3-4 times per week duration: 15-30 minutes/day keyanna/zoroastrian: None seatbelt use: always do you feel safe at home: Yes 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 Date Name GA/Weeks Outcome Route Bth Weight Infant Gen Labor Lgth Anesthesia Del Locatn Provider FOB 11/16/21 Diane 41 live - full term Female [facility] Handy rcanthony Delivery Date: 11/16/21 Last Updated by: Sarah Valero [facility] FTP 6cm CPD 41wk IOL HPI 28 WK OB/ GLUCOSE*SM/JV Details: MYLES MCCANN is a 33 year old who presents for routine OB visit. OB Visit CELY Calculator Estimated Delivery Date Method Current WG Current Estimate 06/02/24 LMP (Certain) 28w 1d Expected Delivery Route/Plan plans repeat c/s Specific Issue/Plans Covid status: [] Flu vaccine: [] Tdap vaccine: given Rhogam: [] LARC form signed: [] Problem list reviewed and updated with the most current plan of care details and appropriate orders placed. Relevant counseling for the gestational age provided. Continue routine care and follow up unless otherwise noted in visit notes/problem list details Initial Weight: 190 lb Date -???-???-???-???-???- ???-???-???-???-???-? ??-???- EGA Weight BP Urine Prot -???-???-???-???-???- ???-???-???-???-???-? ??-???- Glucose FHR FuHt Pres Dilation -???-???-???-???-???- ???-???-???-???-???-? ??-???- Effaced St Visit Note 10/27/23 -???-???-???-???-???- ???-???-???-???-???-? ??-???- 8w 5d 190 lb (+0 oz) 129/84 -???-???-???-???-???- ???-???-???-???-???-? ??-???- -???-???-???-???-???- ???-???-???-???-???-? ??-???- Lc- CRL 18.8 con with LMP. desires nipt. 11/24/23 -???-???-???-???-???- ???-?? (more content not included)... Normal [facility] Parent Aide Office Visit Reporton 02-16-2024 Parent Aide Office Visit Report [facility] [address] [place] [address] OFFICE VISIT Date of Service: 02/16/24 MR#: [id number] Acct: [id number] Name: MYLES MCCANN Rep #: [id number] : 1990 Provider: Dr. Adry pond MD Age/Sex: 33/F [place] [facility] [place]: Signed Intake Vital Signs 12/22/23 09:00 01/23/24 15:18 02/16/24 14:43 02/16/24 14:44 Height 5 ft 1 in 5 ft 1 in 5 ft 1 in 5 ft 1 in Weight: 196 lb BMI 37.0 BP 118/81 H Intake Visit Reasons: 24 WK OB*SM/JV Balance Wheel Arm Burnisher Required: No Is patient in pain?: No Allergies No Known Allergies Allergy (Verified 02/16/24 14:43) Medications ???Medication ???Instructions ???Recorded ???Confirmed ???Type multivitamin no.47-iron fum 27 cap PO 10/24/23 02/16/24 History mg-folate no.1 1 mg-dha 300 mg capsule (PNV-DHA) promethazine 12.5 mg tablet 12.5 mg PO Q6H PRN nausea and 11/15/23 02/16/24 Rx vomiting #60 tabs Last Menstrual Period: 08/27/23 Zika: Zika virus screening: Negative : No PFSH PFSH Medical History delivery delivered Headache Surgical History Previous back surgery [place] teeth extracted Family History Grandfather CVA (cerebral vascular accident) Social History adopted: No household members: spouse and children number of children: 1 current occupational status: employed current occupation: [employer] pets and animals: Yes pets and animals: dog(s) history of recent travel: No sexually active: Yes Smoking Status: Never smoker alcohol intake: current details: not while substance use type: does not use well-balanced diet: daily or most days caffeine: No eating out: 1-3 times/week during the past year weight has: remained stable what type of physical activity do you participate in: walking frequency: 3-4 times per week duration: 15-30 minutes/day keyanna/zoroastrian: None seatbelt use: always do you feel safe at home: Yes 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 Date Name GA/Weeks Outcome Route Bth Weight Gen Labor Lgth Anesthesia Del Locatn Provider FOB 11/16/21 Diane 41 live - full term Female [facility] Handy rcantjairo Delivery Date: 11/16/21 Last Updated by: Sarah Valero [facility] FTP 6cm CPD 41wk IOL HPI 24 WK OB*SM/JV Details: MYLES MCCANN is a 33 year old who presents for routine OB visit. OB Visit CELY Calculator Estimated Delivery Date Method Current WG Current Estimate 06/02/24 LMP (Certain) 24w 5d Expected Delivery Route/Plan plans repeat c/s Specific Issue/Plans Covid status: [] Flu vaccine: [] Tdap vaccine: [] Rhogam: [] LARC form signed: [] Problem list reviewed and updated with the most current plan of care details and appropriate orders placed. Relevant counseling for the gestational age provided. Continue routine care and follow up unless otherwise noted in visit notes/problem list details Initial Weight: 190 lb Date -???-???-???-???-???- ???-???-???-???-???-? ??-???- EGA Weight BP Urine Prot -???-???-???-???-???- ???-???-???-???-???-? ??-???- Glucose FHR FuHt Pres Dilation -???-???-???-???-???- ???-???-???-???-???-? ??-???- Effaced St Visit Note 10/27/23 -???-???-???-???-???- ???-???-???-???-???-? ??-???- 8w 5d 190 lb (+0 oz) 129/84 -???-???-???-???-???- ???-???-???-???-???-? ??-???- -???-???-???-???-???- ???-???-???-???-???-? ??-???- Lc- CRL 18.8 con with LMP. desires nipt. 11/24/23 -???-???-???-???-???- ???-???-???-???-???-? ??-???- 12w 5d 187 lb 8 oz (-2 lb 8 oz) 128/84 Negative -???-???-???-???-???- ???-???-???-???-???-? ??-???- Negative -???-???-???-???-???- ???-???-???-???-???-? ??-???- JV- no lof, vaginal bleeding, or cramping. 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 (has a girl at home) planning rpt section with SM. 12/22/23 -???-???-???-???-???- ???-???-???-???-???-? ??-???- 16w 5d 193 lb 2 oz (+3 lb 2 oz) 124/82 Negative -???-???-???-???-???- ???-???-???-???-???-? ??-???- Negative 150 -???-???-???-???-???- ???-???-???-???-???-? 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 possible flutters. anatomy scan scheduled. 01/23/24 -???-???-???-???-???- ???-???-???-???-???-? ??-???- 21w 2d 196 lb (+6 lb) 133/84 Negative -???-???-???-???-???- ???-???-???-???-???-? ??-???- Negative 137 -???-???- (more content not included)... Normal [facility] Parent Aide Office Visit Reporton 01-23-2024 Parent Aide Office Visit Report [facility] [address] [place] [address] OFFICE VISIT Date of Service: 01/23/24 MR#: [id number] Acct: [id number] Name: MYLES MCCANN Rep #: [id number] : 1990 Provider: Dr. Kay Mcknight, Age/Sex: 33/F [place] [facility] [place]: Signed Intake Vital Signs 12/22/23 09:00 01/23/24 15:18 01/23/24 15:18 Height 5 ft 1 in 5 ft 1 in 5 ft 1 in Weight: 193 lb 2 oz 196 lb BMI 36.5 37.0 BP 124/82 H 133/84 H Intake Visit Reasons: 20 wk ob doc only Balance Wheel Arm Burnisher Required: No Is patient in pain?: No Allergies No Known Allergies Allergy (Verified 01/23/24 15:18) Medications multivitamin no.47-iron fum 27 mg-folate no.1 1 mg-dha 300 mg capsule (PNV-DHA) cap PO 10/24/23 [History Confirmed 01/23/24] promethazine 12.5 mg tablet 12.5 mg PO Q6H PRN nausea and vomiting #60 tabs 11/15/23 [Rx Confirmed 01/23/24] Last Menstrual Period: 08/27/23 Zika: Zika virus screening: Negative : No PFSH PFSH Medical History delivery delivered Headache Surgical History Previous back surgery [place] teeth extracted Family History Grandfather CVA (cerebral vascular accident) Social History adopted: No household members: spouse and children number of children: 1 current occupational status: employed current occupation: [employer] pets and animals: Yes pets and animals: dog(s) history of recent travel: No sexually active: Yes Smoking Status: Never smoker alcohol intake: current details: not while substance use type: does not use well-balanced diet: daily or most days caffeine: No eating out: 1-3 times/week during the past year weight has: remained stable what type of physical activity do you participate in: walking frequency: 3-4 times per week duration: 15-30 minutes/day keyanna/zoroastrian: None seatbelt use: always do you feel safe at home: Yes 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 Date Name GA/Weeks Outcome Route Bth Weight Infant Gen Labor Lgth Anesthesia Del Locatn Provider FOB 11/16/21 Diane 41 live - full term Female [facility] Handy rcanthony Delivery Date: 11/16/21 Last Updated by: Sarah Valero [facility] FTP 6cm CPD 41wk IOL HPI 20 wk ob doc only Details: MYLES MCCANN is a 33 year old who presents for routine OB visit. OB Visit CELY Calculator Estimated Delivery Date Method Current WG Current Estimate 06/02/24 LMP (Certain) 21w 2d Expected Delivery Route/Plan plans repeat c/s Specific Issue/Plans Covid status: [] Flu vaccine: [] Tdap vaccine: [] Rhogam: [] LARC form signed: [] Problem list reviewed and updated with the most current plan of care details and appropriate orders placed. Relevant counseling for the gestational age provided. Continue routine care and follow up unless otherwise noted in visit notes/problem list details Initial Weight: 190 lb Date -???-???-???-???-???- ???-???-???-???-???-? ??-???- EGA Weight BP Urine Prot -???-???-???-???-???- ???-???-???-???-???-? ??-???- Glucose FHR FuHt Pres Dilation -???-???-???-???-???- ???-???-???-???-???-? ??-???- Effaced St Visit Note 10/27/23 -???-???-???-???-???- ???-???-???-???-???-? ??-???- 8w 5d 190 lb (+0 oz) 129/84 -???-???-???-???-???- ???-???-???-???-???-? ??-???- -???-???-???-???-???- ???-???-???-???-???-? ??-???- Lc- CRL 18.8 con with LMP. desires nipt. 11/24/23 -???-???-???-???-???- ???-???-???-???-???-? ??-???- 12w 5d 187 lb 8 oz (-2 lb 8 oz) 128/84 Negative -???-???-???-???-???- ???-???-???-???-???-? ??-???- Negative -???-???-???-???-???- ???-???-???-???-???-? ??-???- JV- no lof, vaginal bleeding, or cramping. 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 (has a girl at home) planning rpt section with SM. 12/22/23 -???-???-???-???-???- ???-???-???-???-???-? ??-???- 16w 5d 193 lb 2 oz (+3 lb 2 oz) 124/82 Negative -???-???-???-???-???- ???-???-???-???-???-? ??-???- Negative 150 -???-???-???-???-???- ???-???-???-???-???-? 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 possible flutters. anatomy scan scheduled. 01/23/24 -???-???-???-???-???- ???-???-???-???-???-? ??-???- 21w 2d 196 lb (+6 lb) 133/84 Negative -???-???-???-???-???- ???-???-???-???-???-? ??-???- Negative 137 -???-???-???-???-???- ???-???-???-???-???-? ??-???- ZEV- pranay (more content not included)... Normal [facility] OB Anatomy Scanon 01-12-2024 OB Anatomy Scan [facility] [address] [place] [address] OB Anatomy Scan MR#: [id number] Acct: [id number] Name: MYLES MCCANN Rep #: [id number] : 1990 F 33 From: Pola maher MD PCP: Dr. Rylan Garcia, DO Status: REG CLI Study: OB Anatomy Scan Date of Exam: 01/12/24 Exam# [id number] Ordering Dr: Kay Khan DO [id number] STUDY: SECOND AND THIRD TRIMESTER OBSTETRICAL ULTRASOUND REASON FOR EXAM: Female, 33 years old anatomy LMP: August 27, 2023. TECHNIQUE: Transabdominal and Transvaginal TECHNICAL QUALITY: Adequate. PRIOR ULTRASOUND: None. FINDINGS: There is a single intrauterine fetus. The fetus is in a cephalic presentation. There is demonstrated cardiac activity with a heart rate of 140 bpm. There is a normal amniotic fluid volume. The largest amniotic fluid pocket measures 5.2 cm x 7.3 cm. The amniotic fluid index (EDYTA) is within normal limits. The placenta is posterior in location and is not low lying. There are Grade 0 placental changes. The cervix measures 5.1 cm in length. The adnexal regions are not visualized. BIOMETRY: BPD: 4.58 cm: 19 weeks, 6 days HC: 17.22 cm: 19 weeks, 6 days AC: 14.31 cm: 19 weeks, 5 days FL: 3.14 cm: 19 weeks, 5 days CI: 79.1% FL/BPD: 68.5% FL/HC: FL/AC: 21.9% HC/AC: 1.2 age by current US: 19 weeks, 5 days. CELY by current US: June 02, 2024. Estimated weight: 309 grams, +/- 46 grams, 45 %. Age by LMP: 19 weeks, 5 days. CELY by LMP: June 02, 2024. ANATOMY: Gender: Male Cranium: Normal lateral ventricles. Normal choroid plexus. Normal cerebellum. Normal cisterna magna. Normal face, nose and lips. Chest: Normal 4-chamber heart. Abdomen/Pelvis: Normal diaphragm. Normal stomach. Normal abdominal wall. Normal cord insertion. Normal 3 vessel cord. Normal kidneys. Normal bladder. Spine: Normal cervical spine. Normal thoracic spine. Normal lumbar spine. Normal sacrum. Extremities: Normal bilateral upper extremities. Normal bilateral lower extremities. US/OB Anatomy Scan IMPRESSION: Single live intrauterine gestation with a mean gestational age of 19 weeks and 5 days. Electronically Signed: Pola Hilario MD at 10:28 EDT Reading Location ID and State: [facility] / [place] , Service support , CC: Dr. Rylan Garcia, DO; Dr. Kay Khan, DO Chemical Compounder: Signed Normal [facility] - Chemistry and C hemistry - challengeon 12-22-2023 Glucose Ql (U) Negative [facility] - Urinalysison Protein Ql (U) Negative [facility] Parent Aide Office Visit Reporton 12-22-2023 Parent Aide Office Visit Report [facility] [address] [place] [address]. [address] [place] [address] OFFICE VISIT Date of Service: 12/22/23 MR#: [id number] Acct: [id number] Name: MYLES MCCANN Rep #: [id number] : 1990 Provider: GERMANIA Stoll ams Age/Sex: 33/F [place] [facility] Status: Signed Intake Vital Signs 11/24/23 13:19 12/22/23 09:00 Height 5 ft 1 in 5 ft 1 in Weight: 193 lb 2 oz BMI 36.5 BP 124/82 H Intake Visit Reasons: 16 WK OB Balance Wheel Arm Burnisher Required: No Is patient in pain?: No Allergies No Known Allergies Allergy (Verified 11/24/23 13:17) Medications multivitamin no.47-iron fum 27 mg-folate no.1 1 mg-dha 300 mg capsule (PNV-DHA) cap PO 10/24/23 [History Confirmed 12/22/23] promethazine 12.5 mg tablet 12.5 mg PO Q6H PRN nausea and vomiting #60 tabs 11/15/23 [Rx Confirmed 12/22/23] Last Menstrual Period: 08/27/23 Zika: Zika virus screening: Negative : No PFSH PFSH Medical History delivery delivered Headache Surgical History Previous back surgery [place] teeth extracted Family History Grandfather CVA (cerebral vascular accident) Social History adopted: No household members: spouse and children number of children: 1 current occupational status: employed current occupation: [employer] pets and animals: Yes pets and animals: dog(s) history of recent travel: No sexually active: Yes Smoking Status: Never smoker alcohol intake: current details: not while substance use type: does not use well-balanced diet: daily or most days caffeine: No eating out: 1-3 times/week during the past year weight has: remained stable what type of physical activity do you participate in: walking frequency: 3-4 times per week duration: 15-30 minutes/day keyanna/zoroastrian: None seatbelt use: always do you feel safe at home: Yes 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 Date Name GA/Weeks Outcome Route Bth Weight Infant Gen Labor Lgth Anesthesia Del Locatn Provider FOB 11/16/21 Diane 41 live - full term Female [facility] Handy rcanthony Delivery Date: 11/16/21 Last Updated by: Sarah Valero [facility] FTP 6cm CPD 41wk IOL HPI 16 WK OB Details: MYLES MCCANN is a 33 year old who presents for routine OB visit. OB Visit CELY Calculator Estimated Delivery Date Method Current WG Current Estimate 06/02/24 LMP (Certain) 16w 5d Expected Delivery Route/Plan plans repeat c/s Specific Issue/Plans Covid status: [] Flu vaccine: [] Tdap vaccine: [] Rhogam: [] LARC form signed: [] Problem list reviewed and updated with the most current plan of care details and appropriate orders placed. Relevant counseling for the gestational age provided. Continue routine care and follow up unless otherwise noted in visit notes/problem list details Initial Weight: 190 lb Date -???-???-???-???-???- ???-???-???-???-???-? ??-???- EGA Weight BP Urine Prot -???-???-???-???-???- ???-???-???-???-???-? ??-???- Glucose FHR FuHt Pres Dilation -???-???-???-???-???- ???-???-???-???-???-? ??-???- Effaced St Visit Note 10/27/23 -???-???-???-???-???- ???-???-???-???-???-? ??-???- 8w 5d 190 lb (+0 oz) 129/84 -???-???-???-???-???- ???-???-???-???-???-? ??-???- -???-???-???-???-???- ???-???-???-???-???-? ??-???- Lc- CRL 18.8 con with LMP. desires nipt. 11/24/23 -???-???-???-???-???- ???-???-???-???-???-? ??-???- 12w 5d 187 lb 8 oz (-2 lb 8 oz) 128/84 Negative -???-???-???-???-???- ???-???-???-???-???-? ??-???- Negative -???-???-???-???-???- ???-???-???-???-???-? ??-???- JV- no lof, vaginal bleeding, or cramping. 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 (has a girl at home) planning rpt section with SM. 12/22/23 -???-???-???-???-???- ???-???-???-???-???-? ??-???- 16w 5d 193 lb 2 oz (+3 lb 2 oz) 124/82 Negative -???-???-???-???-???- ???-???-???-???-???-? ??-???- Negative 150 -???-???-???-???-???- ???-???-???-???-???-? 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 possible flutters. anatomy scan scheduled. ACOG First Trimester First Trimester: Desire for , Alcohol, Tobacco Cessation, Illicit/Recreational Drug/Substance Use, Intimate Partner Violence, Barriers to care, Unstable Housing, Communication Barriers, Environmental/Work Hazards, Anticipated Course of Care, Toxoplasmosis Pr (more content not included)... Normal [facility] - Chemistry and C hemistry - challengeon 11-24-2023 Glucose Ql (U) Negative [facility] - Urinalysison Protein Ql (U) Negative [facility] Parent Aide Office Visit Reporton 11-24-2023 Parent Aide Office Visit Report [facility] [address] [place] [address] OFFICE VISIT Date of Service: 11/24/23 MR#: [id number] Acct: [id number] Name: MYLES MCCANN Rep #: [id number] : 1990 Provider: Dr. Kay Mcknight DO Age/Sex: 32/F [place] [facility] [place]: Signed Intake Vital Signs 10/27/23 11:19 11/24/23 13:17 11/24/23 13:19 Height 5 ft 1 in 5 ft 1 in 5 ft 1 in Weight: 187 lb 8 oz BMI 35.4 BP 128/84 H Intake Visit Reasons: 12 WK OB Balance Wheel Arm Burnisher Required: No Is patient in pain?: No Allergies No Known Allergies Allergy (Verified 11/24/23 13:17) Medications multivitamin no.47-iron fum 27 mg-folate no.1 1 mg-dha 300 mg capsule (PNV-DHA) cap PO 10/24/23 [History Confirmed 11/24/23] promethazine 12.5 mg tablet 12.5 mg PO Q6H PRN nausea and vomiting #60 tabs 11/15/23 [Rx Confirmed 11/24/23] Last Menstrual Period: 08/27/23 Zika: Zika virus screening: Negative : No PFSH PFSH Medical History delivery delivered Headache Surgical History Previous back surgery [place] teeth extracted Family History Grandfather CVA (cerebral vascular accident) Social History adopted: No household members: spouse and children number of children: 1 current occupational status: employed current occupation: [employer] pets and animals: Yes pets and animals: dog(s) history of recent travel: No sexually active: Yes Smoking Status: Never smoker alcohol intake: current details: not while substance use type: does not use well-balanced diet: daily or most days caffeine: No eating out: 1-3 times/week during the past year weight has: remained stable what type of physical activity do you participate in: walking frequency: 3-4 times per week duration: 15-30 minutes/day keyanna/zoroastrian: None seatbelt use: always do you feel safe at home: Yes 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 Date Name GA/Weeks Outcome Route Bth Weight Infant Gen Labor Lgth Anesthesia Del Locatn Provider FOB 11/16/21 Diane 41 live - full term Female [facility] Ma rcanthony Delivery Date: 11/16/21 Last Updated by: Sarah Valero LTCS FTP 6cm CPD 41wk IOL HPI 12 WK OB Details: MYLES MCCANN is a 32 year old who presents for routine OB visit. OB Visit CELY Calculator Estimated Delivery Date Method Current WG Current Estimate 06/02/24 LMP (Certain) 12w 5d Expected Delivery Route/Plan plans repeat c/s Specific Issue/Plans Covid status: [] Flu vaccine: [] Tdap vaccine: [] Rhogam: [] LARC form signed: [] Problem list reviewed and updated with the most current plan of care details and appropriate orders placed. Relevant counseling for the gestational age provided. Continue routine care and follow up unless otherwise noted in visit notes/problem list details Initial Weight: 190 lb Date -???-???-???-???-???- ???-???-???-???-???-? ??-???- EGA Weight BP Urine Prot -???-???-???-???-???- ???-???-???-???-???-? ??-???- Glucose FHR FuHt Pres Dilation -???-???-???-???-???- ???-???-???-???-???-? ??-???- Effaced St Visit Note 10/27/23 -???-???-???-???-???- ???-???-???-???-???-? ??-???- 8w 5d 190 lb (+0 oz) 129/84 -???-???-???-???-???- ???-???-???-???-???-? ??-???- -???-???-???-???-???- ???-???-???-???-???-? ??-???- Lc- CRL 18.8 con with LMP. desires nipt. 11/24/23 -???-???-???-???-???- ???-???-???-???-???-? ??-???- 12w 5d 187 lb 8 oz (-2 lb 8 oz) 128/84 Negative -???-???-???-???-???- ???-???-???-???-???-? ??-???- Negative -???-???-???-???-???- ???-???-???-???-???-? ??-???- JV- no lof, vaginal bleeding, or cramping. 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 (has a girl at home) planning rpt section with SM. ACOG First Trimester First Trimester: Desire for , Alcohol, Tobacco Cessation, Illicit/Recreational Drug/Substance Use, Intimate Partner Violence, Barriers to care, Unstable Housing, Communication Barriers, Environmental/Work Hazards, Anticipated Course of Care, Toxoplasmosis Precations, Use of Any medications, Sexual activity, Exercise, Dental Care, Sauna/Hot tub use, Seat Belt use, Childbirth classes/Hospital facilities, Travel, Indications for Ultrasound and Screening for Aneuploidy; Discussed Second Trimester Se (more content not included)... Normal [facility] Absolute lymphocyte countOrd ered By: Faina Mcclure on 11-06-2023 Lymphocytes Auto (Unsp spec) [#/Vol] 2.40 10*3/uL 0.83-4.51 [facility] Automated lymphocyte count a s percentage of total leukocytesOrdered By: Faina Mcclure on 11-06-2023 Lymphocytes/100 WBC Auto (Unsp spec) 20.1 % 19-41 [facility] Basophil percentageOrdered B y: Faina Mcclure on 11-06-2023 Basophils/100 WBC (Bld) 0.4 % 0-1 [facility] Eosinophils/100 WBC (Bld) 0.7 % 0-5 [facility] Hemoglobin (Bld) [Mass/Vol] 13.4 g/dL 12.0-15.0 [facility] Monocytes/100 WBC (Bld) 4.5 % 0-10 [facility] Neutrophils (Bld) [#/Vol] 8.8 10*3/uL 2.0-7.7 [facility] Neutrophils/100 WBC (Bld) 74.0 % 47-70 [facility] WBC (Bld) [#/Vol] 12.0 10*3/uL 4.4-11.0 [facility] CBC W/Diff, Automatedon Absolute Lymph 2.40 X10 3/uL Normal 0.83-4.51 [facility] Comment on above: Performed By: #### M 100.3400 #### [facility] Laboratory [address] [place], [address] Absolute Neut 8.8 X10 3/uL High 2.0-7.7 [facility] Comment on above: Performed By: #### M 100.3400 #### [facility] [address] [place], [address] Basophils/100 WBC (Bld) 0.4 % Normal 0-1 [facility] Comment on above: Performed By: #### M 100.3400 #### [facility] [address] [place], [address] Eosinophils/100 WBC (Bld) 0.7 % Normal 0-5 [facility] Comment on above: Performed By: #### M 100.3400 #### [facility] [address] [place], [address] Erythrocyte distribution width (RBC) [Ratio] 12.5 % Normal 11.6-14.6 [facility] Comment on above: Performed By: #### M 100.3400 #### [facility] [address] [place], [address] Hematocrit (Bld) [Volume fraction] 39.2 % Normal 37-47 [facility] Comment on above: Performed By: #### M 100.3400 #### [facility] [address] [place], [address] Hemoglobin (Bld) [Mass/Vol] 13.4 g/dL Normal 12.0-15.0 [facility] Comment on above: Performed By: #### M 100.3400 #### [facility] [address] [place], [address] IG% 0.300 Normal 0.0-0.9 [facility] Comment on above: Result Comment: IG% - Immature Granulocytes (promyelocytes, myelocytes and metamyelocytes) > 1% indicates that a LEFT SHIFT is Present. Performed By: #### M 100.3400 #### [facility] [address] [place], [address] Lymphocytes/100 WBC (Bld) 20.1 % Normal 19-41 [facility] Comment on above: Performed By: #### M 100.3400 #### [facility] [address] [place], [address] MCH (RBC) [Entitic mass] 30.7 pg Normal 27.0-32.0 [facility] Comment on above: Performed By: #### M 100.3400 #### [facility] [address] [place], [address] MCHC (RBC) [Mass/Vol] 34.2 g/dL Normal 32-36 [facility] Comment on above: Performed By: #### M 100.3400 #### [facility] [address] [place], [address] MCV (RBC) [Entitic vol] 89.9 fL Normal 81-99 [facility] Comment on above: Performed By: #### M 100.3400 #### [facility] [address] [place], [address] Monocytes/100 WBC (Bld) 4.5 % Normal 0-10 [facility] Comment on above: Performed By: #### M 100.3400 #### [facility] [address] [place], [address] Neutrophils/100 WBC (Bld) 74.0 % High 47-70 [facility] Comment on above: Performed By: #### M 100.3400 #### [facility] [address] [place], [address] Nucleated RBC (Bld) [#/Vol] 0 10*3/uL Normal 0-5 [facility] Comment on above: Performed By: #### M 100.3400 #### [facility] [address] [place], [address] Platelet mean volume (Bld) [Entitic vol] 9.9 fL Normal 6.2-12.0 [facility] Comment on above: Performed By: #### M 100.3400 #### [facility] [address] [place], [address] Platelets (Bld) [#/Vol] 382 10*3/uL Normal 150-450 [facility] Comment on above: Performed By: #### M 100.3400 #### [facility] [address] [place], [address] RBC (Bld) [#/Vol] 4.36 10*6/uL Normal 4.2-5.4 [facility] Comment on above: Performed By: #### M 100.3400 #### [facility] [address] [place], [address] RDW SD 41.1 fl Normal 35.1-43.9 [facility] Comment on above: Performed By: #### M 100.3400 #### [facility] [address] [place], [address] WBC (Bld) [#/Vol] 12.0 10*3/uL High 4.4-11.0 [facility] Comment on above: Performed By: #### M 100.3400 #### [facility] [address] [place], [place], [id number] ([address] Determination of erythrocyte mean corpuscular volume (MCV)Ordered By: Faina Mcclure on 11-06-2023 MCV (RBC) [Entitic vol] 89.9 fL 81-99 [facility] Erythrocyte distribution wid th ratioOrdered By: Faina Mcclure on 11-06-2023 Erythrocyte distribution width (RBC) [Ratio] 12.5 % 11.6-14.6 [facility] Erythrocyte distribution wid th standard deviationOrdered By: Faina Mcclure on 11-06-2023 Erythrocyte distribution width (RBC) [Entitic vol] 41.1 fL 35.1-43.9 [facility] HIV - WCHon 11-06-2023 HIV Non-Reactive Normal Nonreactive [facility] Comment on above: Order Comment: Reaso n for Exam: Performed By: #### M 100.3400 #### [facility] [address] [place], [place], [id number] ([address] HIV 1 and HIV-2 antibody ass ay with HIV-1 p24 antigen detectionOrdered By: Faina Mcclure on 11-06-2023 HIV 1+2 Ab+HIV1 p24 Ag IA Ql Non-Reactive Nonreactive [facility] Hematocrit Auto (Bld) [Volum e fraction]Ordered By: Fiana Mcclure on 11-06-2023 Hematocrit (Bld) [Volume fraction] 39.2 % 37-47 [facility] Hemoglobin A1con 11-06-2023 HbA1c (Bld) [Mass fraction] 4.8 % Normal 3.8-5.6 [facility] Comment on above: Result Comment: Norm al < 5.7 % Prediabetic 5.7 - 6.4 % Diabetic >or= 6.5 % Please note range changes. Performed By: #### M 100.3400 #### [facility] [address] [place], [address] Hepatitis B Surface Antigeno n 11-06-2023 HEP B Surf Ag Non-Reactive Normal Nonreactive [facility] Comment on above: Order Comment: Reaso n for Exam: Performed By: #### M 100.3400 #### [facility] [address] [place], [address] Hepatitis C Antibodyon 11-06 Hepatitis C Ab Non-Reactive Normal Nonreactive [facility] Comment on above: Order Comment: Reaso n for Exam: Result Comment: Non Reactive: < 0.8 Equivocal: >/= 0.8 to < 1.0 Reactive: >/= 1.0 The CDC recommends that a reactive/equivocal HCV antibody result be followed up by the HCV Nucleic Acid Amplification test (488402) Performed By: #### M 100.3400 #### [facility] [address] [place], [address] Immature granulocytes/100 WB C Auto (Bld)Ordered By: Faina Mcclure on 11-06-2023 Immature granulocytes/100 WBC (Bld) 0.300 % 0.0-0.9 [facility] Comment on above: IG% - Immature Granu locytes (promyelocytes, myelocytes and metamyelocytes) > 1% indicates that a LEFT SHIFT is Present. L509.8000on 11-06-2023 Syphilis Abs Non-Reactive Normal [facility] Comment on above: Order Comment: Reaso n for Exam: Performed By: #### M 100.3400 #### [facility] [address] [place], [place], [address] Laboratory - Hematology and Cell countsOrdered By: Faina Mcclure on 11-06-2023 MCH (RBC) [Entitic mass] 30.7 pg 27.0-32.0 [facility] MCHC (RBC) [Mass/Vol] 34.2 g/dL 32-36 [facility] Nucleated RBC/100 WBC (Bld) [Ratio] 0 % 0-5 [facility] Platelets (Bld) [#/Vol] 382 10*3/uL 150-450 [facility] NATERAon 11-06-2023 NATURA SEE SCANNED REPORT Normal [facility] Comment on above: Performed By: #### M 100.3400 #### [facility] [address] [place], [place], [address] No Panel InformationOrdered By: Faina Mcclure on 11-06-2023 Hepatitis B Surface Antigen Non-Reactive Nonreactive [facility] Hepatitis C Antibody Non-Reactive Nonreactive [facility] Comment on above: Non Reactive: < 0.8 Equivocal: >/= 0.8 to < 1.0 Reactive: >/= 1.0The CDC recommends that a reactive/equivocal HCV antibody result be followed up by the HCV Nucleic Acid Amplificationtest (752653) Miscellaneous Test Comment SEE SCANNED REPORT [facility] Rubella IgG Antibody Reactive Nonreactive [facility] Comment on above: Antibody Results Int erpretation of Immune Status Non Reactive Presumed Non-Immune Equivocal Equivocal Reactive Presumed Immune Platelet mean volume James-Ec ker (Bld) [Entitic vol]Ordered By: Faina Mcclure on 11-06-2023 Platelet mean volume (Bld) [Entitic vol] 9.9 fL 6.2-12.0 [facility] RBC Auto (Bld) [#/Vol]Ordere d By: Faina Mcclure on 11-06-2023 RBC (Bld) [#/Vol] 4.36 10*6/uL 4.2-5.4 [facility] Rubella IgGon 11-06-2023 Rubella IgG Reactive Normal Nonreactive [facility] Comment on above: Order Comment: Reaso n for Exam: Result Comment: Anti body Results Interpretation of Immune Status Non Reactive Presumed Non-Immune Equivocal Equivocal Reactive Presumed Immune Performed By: #### M 100.3400 #### [facility] [address] [place], [address] Serum Treponema species anti body detectionOrdered By: Faina Mcclure on 11-06-2023 Treponema sp Ab Ql (S) Non-Reactive [facility] Type AND Screenon 11-06-2023 ABO and Rh group Nom (Bld) Blood group AB Rh(D) positive Normal [facility] Comment on above: Order Comment: PN Performed By: #### M 100.3400 #### [facility] [address] [place], [address] Whole blood hemoglobin A1c/t otal hemoglobin ratio (mass fraction)Ordered By: Faina Mcclure on 11-06-2023 HbA1c (Bld) [Mass fraction] 4.8 % 3.8-5.6 [facility] Comment on above: Normal < 5.7 % Predi abetic 5.7 - 6.4 % Diabetic >or= 6.5 % Please note range changes. Chlamydia/GC JONN aptimaon CHLAMY,NUC ACID Negative Normal Negative [facility] Comment on above: Performed By: #### L 100.0500 #### [facility] [address] [place], [address] GC BY NUC ACID Negative Normal Negative [facility] Comment on above: Result Comment: Perf ormed at: =G - [facility] [address] [place] [id number] Bilingual Instructor: Nicole Nelson MD, Phone: [phone] Performed By: #### L 100.0500 #### [facility] [address] [place], [address] Urine Cultureon 10-29-2023 URC Mixed Gram Positive Organisms [place] Count >100,000 MIXC Mixed contaminants. Submit a new specimen if indicated. Normal [facility] Comment on above: Performed By: #### L 100.0500 #### [facility] [address] [place], [address] Chlamydia trachomatis rRNA d etection by probe and target amplification methodOrdered By: Faina Mcclure on 10-27-2023 C. trachomatis rRNA JONN+probe Ql (Unsp spec) Negative Negative [facility] Culture, urineOrdered By: Meli Mcclure on 10-27-2023 Bacteria identified Cx Nom (U) Positive [facility] Bacteria identified Cx Nom (U) Positive [facility] Laboratory - Microbiology an d Antimicrobial susceptibilityOrdered By: Faina Mcclure on 10-27-2023 N. gonorrhoeae DNA JONN+probe Ql (Unsp spec) Negative Negative [facility] Comment on above: Performed at: [address] [id number] Director: Nicole Nelson MD, Phone: [phone] Parent Aide Office Visit Reporton 10-27-2023 Parent Aide Office Visit Report [facility] 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: No Is patient in pain?: No Allergies No Known Allergies Allergy (Verified 10/27/23 11:18) Medications multivitamin no.47-iron fum 27 mg-folate no.1 1 mg-dha 300 mg capsule (PNV-DHA) cap PO 10/24/23 [History Confirmed 10/24/23] promethazine 12.5 mg tablet 12.5 mg PO Q6H PRN 10/24/23 [History Confirmed 10/24/23] Last Menstrual Period: 08/27/23 Zika: Zika virus screening: Negative : No PFSH PFSH Medical History delivery delivered Headache Surgical History Previous back surgery [place] teeth extracted Family History Grandfather CVA (cerebral vascular accident) Social History (Updated 10/24/23 @ 10:26 by Doretha Adames) adopted: No household members: spouse and children number of children: 1 service: No current occupational status: employed current occupation: [employer] pets and animals: Yes pets and animals: dog(s) history of recent travel: No sexually active: Yes Smoking Status: Never smoker alcohol intake: current details: not while substance use type: does not use well-balanced diet: daily or most days caffeine: No eating out: 1-3 times/week during the past year weight has: remained stable what type of physical activity do you participate in: walking frequency: 3-4 times per week duration: 15-30 minutes/day keyanna/zoroastrian: None seatbelt use: always do you feel safe at home: Yes 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 Date Name GA/Weeks Outcome Route Bth Weight Gen Labor Lgth Anesthesia Del Locatn Provider FOB 11/16/21 Diane 41 live - full term Female [facility] Handy rcantjairo Delivery Date: 11/16/21 Last Updated by: Sarah Valero LTCS FTP 6cm CPD 41wk IOL HPI New OB, LMP 08/31/23, CELY 06/06/24 Details: MYLES MCCANN is a 32 year old who presents for New OB visit. OB Visit CELY Calculator Estimated Delivery Date Method Current WG Current Estimate 06/02/24 LMP (Certain) 8w 5d Comments: HIV: Urine Culture: Sequential Screen: NIPT Screen: Estimated Due Date: 06/02/24 Expected Delivery Route/Plan plans repeat c/s Specific Issue/Plans Covid status: [] Flu vaccine: [] Tdap vaccine: [] Rhogam: [] LARC form signed: [] Problem list reviewed and updated with the most current plan of care details and appropriate orders placed. Relevant counseling for the gestational age provided. Continue routine care and follow up unless otherwise noted in visit notes/problem list details Initial Weight: 190 lb Date -???-???-???-???-???- ???-???-???-???-???-? ??-???- EGA Weight BP Urine Prot -???-???-???-???-???- ???-???-???-???-???-? ??-???- Glucose FHR FuHt Pres Dilation -???-???-???-???-???- ???-???-???-???-???-? ??-???- Effaced St Visit Note 10/27/23 -???-???-???-???-???- ???-???-???-???-???-? ??-???- 8w 5d 190 lb (+0 oz) 129/84 -???-???-???-???-???- ???-???-???-???-???-? ??-???- -???-???-???-???-???- ???-???-???-???-???-? ??-???- Lc- CRL 18.8 con with LMP. desires nipt. Menstrual History Last Menstrual Period: 08/27/23 Reported LMP: approximate (month known) Antepartum Record Genetic Screening: Congenital Heart Defect: Other, Neural Tube Defect: Other, Hemoglobinopathy Or Carrier: Other, Cystic Fibrosis: Other, Chromosome Abnormality: Other, Everardo-Sachs: Other, Hemophilia: Other, Intellectual Disability/Autism: Other, Recurrent Loss/Stillbirth: Other, Other Structural Defect: Other, Other Genetic Disease: Other and Maternal Metabolic Disorder: Other Infection History: Live with someone with TB or Exposed to TB: No, Patient or Partner has history of Genital Herpes: No, Rash or Viral illness since last mentrual period: No, Prior GBS-Infected child: No, History of STD: No, HIV Infection: No, History of Hepatitis: No, Recent travel ou (more content not included)... Normal [facility] Office Visit Reporton 2022 Office Visit Report [facility] [address] [place] [address] OFFICE VISIT Date of Service: 07/22/23 MR#: [id number] Acct: [id number] Patient: MYLES MCCANN Rep #: [id number] : 1990 Provider: ADELINA Weber Age/Sex: 32/F [place] [facility] Status: Signed with Addenda ADDENDUM by Mariam Aguirre on 09/21/23 at 0946 Assessment Plan PLAN: Plan correction: pt given Flucelvax Quad influenza immunization [facility] 24069-547-10, exp 03/09/2024, lot [id number] in right deltoid 10/01/23 0823 Date Taurus Thomas cc: * Signed Intake Vital Signs 12/29/22 08:58 Height 5 ft 1 in Weight: 187 lb 4 oz BMI 35.4 BP 123/87 H Intake Visit Reasons: FLU SHOT Chief Complaint: Med check Allergies No Known Allergies Allergy (Verified 12/29/22 08:59) Immunizations Fluad Quad 9256-7053(65yr up)(PF) 60 mcg (15 mcg x 4)/0.5mL IM syringe Performing Provider: ADELINA Weber [facility] Administered by: Lindsey Otero on 07/22/23 13:07 Dose Route Admin Location Dispensed Lot Number Expiration Date [facility] Man ufacturer 0.5 mcg IM Right Deltoid 0.5 mL [id number] 03/09/24 51001-718-75 [employer] VIS Given Date VIS Provided VIS Publication Date 07/22/23 Single Vaccine 21 Eligibility Eligibility Date Funding Source Not Applicable 08/26/23810 Date Taurus SAHU Cosigner Signature: Date (if applicable) CC: Normal [facility] Cervical or vagninal specime n microscopic examination by cytology stain (reported ason 12-27-2021 Cytology report Cyto stain Doc (Cvx/Vag) Comment [facility] Work Phone: Comment on above: The Pap smear is a s creening test designed to aid in thedetection of premalignant and malignant conditions of theuterine cervix. It is not a diagnostic procedure andshould not be used as the sole means of detecting cervicalcancer. Both false-positive and false-negative reports dooccur. Laboratory - Cytologyon 12-01 [employer] Cyto stain Nom (Cvx/Vag) [ID] Comment [facility] Work Phone: Comment on above: Loco Guillermo totleaologist (ASCP) Laboratory - Miscellaneous t estson 12-27-2021 Service comment (Unsp spec) [Interp] Comment [facility] Work Phone: Comment on above: This liquid based Th inPrep(R) pap test was screened withthe use of an image guided system. Service comment (Unsp spec) [Interp] . [facility] Work Phone: No Panel Informationon 12-27 Human Papillomavirus Screen Comment [facility] Work Phone: Comment on above: The HPV DNA reflex c grace were not met with this specimenresult therefore, no HPV testing was performed.Performed at: [address] [id number] Director: Nicole Nelson MD, Phone: [phone] Pathology report final diagnosis Narrative Comment [facility] Work Phone: [phone] Comment on above: NEGATIVE FOR INTRAEP ITHELIAL LESION OR MALIGNANCY.THIS SPECIMEN WAS RESCREENED PART OF OUR [employer] SPECIALIST PROGRAM. Absolute lymphocyte counton 11-18-2021 Lymphocytes Auto (Unsp spec) [#/Vol] 2.40 10*3/uL 0.83-4.51 [facility] Work Phone: [phone] Basophil percentageon 2021 Basophils/100 WBC (Bld) 0.3 % 0-1 [facility] Work Phone: Eosinophils/100 WBC (Bld) 0.6 % 0-5 [facility] Work Phone: Neutrophils (Bld) [#/Vol] 15.4 10*3/uL 2.0-7.7 [facility] Work Phone: Neutrophils/100 WBC (Bld) 79.1 % 47-70 [facility] Work Phone: WBC (Bld) [#/Vol] 19.5 10*3/uL 4.4-11.0 [facility] Work Phone: [phone] Blood erythrocytes count (nu mber/volume)on 11-18-2021 RBC (Bld) [#/Vol] 3.35 10*6/uL 4.2-5.4 [facility] Work Phone: Blood hemoglobin measurement (mass/volume)on 11-18-2021 Hemoglobin (Bld) [Mass/Vol] 10.5 g/dL 12.0-15.0 [facility] Work Phone: [phone] Blood lymphocytes/100 leukoc yteson 11-18-2021 Lymphocytes/100 WBC (Bld) 12.3 % 19-41 [facility] Work Phone: Blood monocytes/100 leukocyt eson 11-18-2021 Monocytes/100 WBC (Bld) 6.8 % 0-10 [facility] Work Phone: Blood platelet mean volumeon 11-18-2021 Platelet mean volume (Bld) [Entitic vol] 10.7 fL 6.2-12.0 [facility] Work Phone: Determination of erythrocyte mean corpuscular volume (MCV)on 11-18-2021 MCV (RBC) [Entitic vol] 92.5 fL 81-99 [facility] Work Phone: Hematocrit Auto (Bld) [Volum e fraction]on 11-18-2021 Hematocrit (Bld) [Volume fraction] 31.0 % 37-47 [facility] Work Phone: Laboratory - Hematology and Cell countson 11-18-2021 Erythrocyte distribution width (RBC) [Entitic vol] 47.5 fL 35.1-43.9 [facility] Work Phone: Erythrocyte distribution width (RBC) [Ratio] 14.1 % 11.6-14.6 [facility] Work Phone: Immature granulocytes/100 WBC (Bld) 0.900 % 0.0-0.9 [facility] Work Phone: Comment on above: IG% - Immature Granu locytes (promyelocytes, myelocytes and metamyelocytes) > 1% indicates that a LEFT SHIFT is Present. MCH (RBC) [Entitic mass] 31.3 pg 27.0-32.0 [facility] Work Phone: Nucleated RBC/100 WBC (Bld) [Ratio] 0 % 0-5 [facility] Work Phone: MCHC Auto (RBC) [Mass/Vol]on 11-18-2021 MCHC (RBC) [Mass/Vol] 33.9 g/dL 32-36 [facility]: Platelets bldon 11-18-2021 Platelets (Bld) [#/Vol] 239 10*3/uL 150-450 [facility] Work Phone: No Panel Informationon 11-16 Vaginal Amniotic Fluid Detection Positive Negative [facility] Work Phone: Comment on above: Amniotic fluid prese nt indicates rupture of Membranes. RESULTS CALLED TO Carmencita ROBBINS RN () 11/16/21 0426 Devin Kapadia.REPORT READ BACK BY SAME . Basophil percentageon 2021 Bilirubin [Mass/Vol] 0.20 mg/dL 0.20-1.00 [facility] Work Phone: Comment on above: For patients on eltr ombopag therapy, use of Dimension [place] TBIL is not recommended. Chloride [Moles/Vol] 108 mmol/L 98-107 [facility] Work Phone: Glucose [Mass/Vol] 116 mg/dL 74-106 [facility] Work Phone: Comment on above: Fasting Glucose resu lt from 100 to 125 mg/dL suggests IMPAIRED HOMEOSTASIS per A.D.A. criteria. Potassium [Moles/Vol] 3.5 mmol/L 3.5-5.1 [facility] Work Phone: Protein [Mass/Vol] 6.2 g/dL 6.4-8.2 [facility] Work Phone: Sodium [Moles/Vol] 138 mmol/L 136-145 [facility] Work Phone: Laboratory - Chemistry and C hemistry - challengeon 11-15-2021 ALP [Catalytic activity/Vol] 208 U/L 45-117 [facility] Work Phone: ALT [Catalytic activity/Vol] 12 U/L 13-56 [facility] Work Phone: CO2 [Moles/Vol] 22.0 mmol/L 21.0-32.0 [facility] Work Phone: Globulin (S) [Mass/Vol] 3.7 g/dL 2.2-4.2 [facility] Work Phone: Urea nitrogen/Creatinine [Mass ratio] 17.3 mg/mg 10-20 [facility] Work Phone: No Panel Informationon 11-15 Estimated Creatinine Clearance Calc 121.54 ml/min [facility] Work Phone: Estimated GFR (MDRD) Amer 179 mL/min >60 [facility] Work Phone: Comment on above: GFR Calc Estimated GFR (MDRD) Non-Af Amer 148 mL/min >60 [facility] Work Phone: Comment on above: Non- GFR Calc SARS-CoV-2 Antigen (Rapid) [facility] Work Phone: Serum or plasma albumin armani urement (mass/volume)on 11-15-2021 Albumin [Mass/Vol] 2.5 g/dL 3.2-5.0 [facility] Work Phone: Serum or plasma albumin/glob ulin mass ratioon 11-15-2021 Albumin/Globulin [Mass ratio] 0.7 {ratio} 0.9-2.4 [facility] Work Phone: Serum or plasma calcium armani urement (mass/volume)on 11-15-2021 Calcium [Mass/Vol] 8.8 mg/dL 8.5-10.1 [facility] Work Phone: Serum or plasma creatinine m easurement (mass/volume)on 11-15-2021 Creatinine [Mass/Vol] 0.52 mg/dL 0.55-1.02 [facility] Work Phone: Comment on above: The validity of the calculated GFR & GFRAA in patients over 70 years has not been determined. Clinical correlation is essential. Serum or plasma urea nitroge n measurement (mass/volume)on 11-15-2021 Urea nitrogen [Mass/Vol] 9 mg/dL 7-18 [facility] Work Phone: Thin prep Papanicolaou smear with manual screeningon 11-15-2021 Thin prep Papanicolaou smear with manual screening 15 U/L 15-37 [facility] Work Phone: Thin prep Papanicolaou smear with manual screening 8 5-15 [facility] Work Phone: Laboratory - Chemistry and C hemistry - challengeon 11-12-2021 Glucose Ql (U) Negative [facility] Work Phone: Laboratory - Urinalysison Protein Ql (U) Negative [facility] Work Phone: Laboratory - Chemistry and C hemistry - challengeon 11-05-2021 Glucose Ql (U) Negative [facility] Work Phone: Laboratory - Urinalysison Protein Ql (U) Negative [facility] Work Phone: Laboratory - Chemistry and C hemistry - challengeon 10-29-2021 Glucose Ql (U) Negative [facility] Work Phone: Laboratory - Urinalysison Protein Ql (U) Negative [facility] Work Phone: Laboratory - Chemistry and C hemistry - challengeon 10-22-2021 Glucose Ql (U) Negative [facility] Work Phone: Laboratory - Urinalysison Protein Ql (U) Negative [facility] Work Phone: Laboratory - Chemistry and C hemistry - challengeon 10-15-2021 Glucose Ql (U) Negative [facility] Work Phone: Laboratory - Urinalysison Protein Ql (U) Negative [facility] Work Phone: No Panel Informationon 10-15 Group B Streptococcus Culture Group B Beta Streptococcus is not isolated. [facility] Work Phone: Laboratory - Chemistry and C hemistry - challengeon 09-29-2021 Glucose Ql (U) Negative [facility] Work Phone: Laboratory - Urinalysison Protein Ql (U) Negative [facility] Work Phone: Laboratory - Chemistry and C hemistry - challengeon 09-17-2021 Glucose Ql (U) Negative [facility] Work Phone: Laboratory - Urinalysison Protein Ql (U) Negative [facility] Work Phone: Vital Signs Date Time Vital Sign Value Performing Clinician Faci lity 12-22-2023 09:00-0400 Body height 154.[address] Rylan Garcia Work Phone: [facility] 12-22-2023 09:00-0400 Body mass index (BMI) [Ratio] 36.5 kg/m2 Dr. Rylan Garcia Work Phone: [facility] 12-22-2023 09:00-0400 Body weight 87.[address] Rylan Garcia Work Phone: [facility] 12-22-2023 09:00-0400 Diastolic blood pressure 82 mm[Hg] Dr. Rylan Garcia Work Phone: [facility] 12-22-2023 09:00-0400 Systolic blood pressure 124 mm[Hg] Dr. Rylan Garcia Work Phone: [facility] 11-24-2023 13:17-0500 Body mass index (BMI) [Ratio] 35.4 kg/m2 Dr. Rylan Garcia Work Phone: [facility] 11-24-2023 13:17-0500 Body weight 85.[address] Rylan Garcia Work Phone: [facility] 11-24-2023 13:17-0500 Diastolic blood pressure 84 mm[Hg] Dr. Rylan Garcia Work Phone: [facility] 11-24-2023 13:17-0500 Systolic blood pressure 128 mm[Hg] Dr. Rylan Garcia Work Phone: [facility] 10-27-2023 11:19-0500 Body height 154.[address] Rylan Garcia Work Phone: [facility] 10-27-2023 11:18-0500 Body mass index (BMI) [Ratio] 35.9 kg/m2 Dr. Rylan Garcia Work Phone: [facility] 10-27-2023 11:18-0500 Body weight 86.[address] Rylan Garcia Work Phone: [facility] 10-27-2023 11:18-0500 Diastolic blood pressure 84 mm[Hg] Dr. Rylan Gacria Work Phone: [facility] 10-27-2023 11:18-0500 Systolic blood pressure 129 mm[Hg] Dr. Rylan Garcia Work Phone: [facility] 12-27-2021 14:44-0400 Body height 154.[address] Rylan Garcia Work Phone: [facility] Work Phone: 12-27-2021 14:44-0400 Body mass index (BMI) [Ratio] 34.7 kg/m2 Dr. Rylan Garcia Work Phone: [facility] Work Phone: 12-27-2021 14:44-0400 Body weight 83.[address] Rylan Garcia Work Phone: [facility] Work Phone: 12-27-2021 14:44-0400 Diastolic blood pressure 80 mm[Hg] Dr. Rylan Garcia Work Phone: [facility] Work Phone: 12-27-2021 14:44-0400 Systolic blood pressure 100 mm[Hg] Dr. Rylan Garcia Work Phone: [facility] Work Phone: 11-30-2021 10:17-0500 Body weight 82.[address] Rylan Garcia Work Phone: [facility] Work Phone: 11-30-2021 10:17-0500 Diastolic blood pressure 70 mm[Hg] Dr. Rylan Garcia Work Phone: [facility] Work Phone: 11-30-2021 10:17-0500 Systolic blood pressure 114 mm[Hg] Dr. Rylan Garcia Work Phone: [facility] Work Phone: 11-18-2021 13:27-0500 Body temperature 98.2 [degF] Dr. Rylan Garcia Work Phone: [facility] Work Phone: 11-18-2021 13:27-0500 Diastolic blood pressure 85 mm[Hg] Dr. Rylan Garcia Work Phone: [facility] Work Phone: 11-18-2021 13:27-0500 Heart rate 72 /min Dr. Rylan Garcia Work Phone: [facility] Work Phone: 11-18-2021 13:27-0500 Respiratory rate 16 /min Dr. Rylan Garcia Work Phone: [facility] Work Phone: 11-18-2021 13:27-0500 SaO2% (BldA) [Mass fraction] 97 % Dr. Rylan Garcia Work Phone: [facility] Work Phone: 11-18-2021 13:27-0500 Systolic blood pressure 123 mm[Hg] Dr. Rylan Garcia Work Phone: [facility] Work Phone: 11-15-2021 18:20-0500 Body mass index (BMI) [Ratio] 39.4 kg/m2 Dr. Rylan Garcia Work Phone: [facility] Work Phone: 11-15-2021 18:20-0500 Body weight 94.[address] Rylan Garcia Work Phone: [facility] Work Phone: 11-12-2021 08:18-0500 Body mass index (BMI) [Ratio] 38.5 kg/m2 Dr. Rylan Garcia Work Phone: [facility] Work Phone: 11-12-2021 08:18-0500 Body weight 92.[address] Rylan Garcia Work Phone: [facility] Work Phone: 11-12-2021 08:18-0500 Diastolic blood pressure 79 mm[Hg] Dr. Rylan Garcia Work Phone: [facility] Work Phone: 11-12-2021 08:18-0500 Systolic blood pressure 117 mm[Hg] Dr. Rylan Garcia Work Phone: [facility] Work Phone: 11-05-2021 08:05-0500 Body mass index (BMI) [Ratio] 38 kg/m2 Dr. Rylan Garcia Work Phone: [facility] Work Phone: 11-05-2021 08:05-0500 Body weight 91.[address] Rylan Garcia Work Phone: [facility] Work Phone: 11-05-2021 08:05-0500 Diastolic blood pressure 82 mm[Hg] Dr. Rylan Garcia Work Phone: [facility] Work Phone: 11-05-2021 08:05-0500 Systolic blood pressure 120 mm[Hg] Dr. Rylan Garcia Work Phone: [facility] Work Phone: 10-29-2021 07:56-0500 Body mass index (BMI) [Ratio] 38.3 kg/m2 Dr. Rylan Garcia Work Phone: [facility] Work Phone: 10-29-2021 07:56-0500 Body weight 92.[address] Rylan Garcia Work Phone: [facility] Work Phone: 10-29-2021 07:56-0500 Diastolic blood pressure 78 mm[Hg] Dr. Rylan Garcia Work Phone: [facility] Work Phone: 10-29-2021 07:56-0500 Systolic blood pressure 130 mm[Hg] Dr. Rylan Garcia Work Phone: [facility] Work Phone: 10-22-2021 07:50-0500 Body mass index (BMI) [Ratio] 37.8 kg/m2 Dr. Rylan Garcia Work Phone: [facility] Work Phone: 10-22-2021 07:50-0500 Body weight 90.[address] Rylan Garcia Work Phone: [facility] Work Phone: 10-22-2021 07:50-0500 Diastolic blood pressure 78 mm[Hg] Dr. Rylan Garcia Work Phone: [facility] Work Phone: 10-22-2021 07:50-0500 Systolic blood pressure 120 mm[Hg] Dr. Rylan Garcia Work Phone: [facility] Work Phone: 10-15-2021 14:59-0500 Body mass index (BMI) [Ratio] 38.1 kg/m2 Dr. Rylan Garcia Work Phone: [facility] Work Phone: 10-15-2021 14:59-0500 Body weight 91.[address] Rylan Garcia Work Phone: [facility] Work Phone: 10-15-2021 14:59-0500 Diastolic blood pressure 88 mm[Hg] Dr. Rylan Garcia Work Phone: [facility] Work Phone: 10-15-2021 14:59-0500 Systolic blood pressure 130 mm[Hg] Dr. Rylan Garcia Work Phone: [facility] Work Phone: 09-29-2021 07:28-0500 Body mass index (BMI) [Ratio] 37.3 kg/m2 Dr. Rylan Garcia Work Phone: [facility] Work Phone: 09-29-2021 07:28-0500 Body weight 89.[address] Rylan Garcia Work Phone: [facility] Work Phone: 09-29-2021 07:28-0500 Diastolic blood pressure 80 mm[Hg] Dr. Rylan Garcia Work Phone: [facility] Work Phone: 09-29-2021 07:28-0500 Systolic blood pressure 126 mm[Hg] Dr. Rylan Garcia Work Phone: [facility] Work Phone: 09-17-2021 08:25-0500 Body mass index (BMI) [Ratio] 37.4 kg/m2 Dr. Rylan Garcia Work Phone: [facility] Work Phone: 09-17-2021 08:25-0500 Body weight 89.[address] Rylan Garcia Work Phone: [facility] Work Phone: 09-17-2021 08:25-0500 Diastolic blood pressure 68 mm[Hg] Dr. Rylan Garcia Work Phone: [facility] Work Phone: 09-17-2021 08:25-0500 Systolic blood pressure 118 mm[Hg] Dr. Rylan Garcia Work Phone: [facility] Work Phone: Encounters Encounter Date Encounter Type Care Provider Facility Start: 06-28-2025 ambulatory RYLAN GARCIA [facility] Start: 07-08-2024 End: 07-08-2024 ambulatory Rylan Garcia Facility:[facility] Start: 06-10-2024 End: 06-10-2024 ambulatory Kay Khan Facility:[facility] Start: 05-27-2024 ambulatory Adry Ponce Faci lity:[facility] Start: 05-27-2024 End: 05-28-2024 Evaluation and management of inpatient Adry Ponce Facility:[facility] Start: 05-24-2024 End: 05-24-2024 ambulatory Rylan Garcia Facility:[facility] Start: 05-16-2024 End: 05-16-2024 ambulatory Rylan Garcia Facility:[facility] Start: 05-08-2024 End: 05-08-2024 ambulatory Adry Rosario Facility:[facility] Start: 05-08-2024 End: 05-08-2024 ambulatory Adry Ponce Facility:[facility] Start: 04-23-2024 End: 04-23-2024 ambulatory Rylan Garcia Facility:[facility] Start: 04-08-2024 End: 04-08-2024 ambulatory Kay Khan Facility:[facility] Start: 03-25-2024 End: 03-25-2024 ambulatory Kay Khan Facility:[facility] Start: 03-21-2024 End: 03-21-2024 ambulatory Adry Ponce Facility:[facility] Start: 03-11-2024 End: 03-11-2024 ambulatory No Primary Care Physician Facility:[facility] Start: 03-11-2024 End: 03-11-2024 ambulatory Adry Ponce Facility:[facility] Start: 02-16-2024 End: 02-16-2024 ambulatory Rylan Garcia Facility:[facility] Start: 01-23-2024 End: 01-23-2024 ambulatory Kay Khan Facility:[facility] Start: 01-12-2024 End: 01-12-[address] Rylan Garcia Work Phone: [facility] Work Phone: Start: 01-12-2024 End: 01-12-[address] Rylan Garcia Work Phone: [facility], [facility] Work Phone: Start: 01-12-2024 End: 01-12-2024 ambulatory Kay Reese Ervin Facility:[facility] Start: 12-22-2023 End: 12-22-[address] Rylan Garcia Work Phone: [facility] Work Phone: Start: 12-22-2023 End: 12-22-2023 ambulatory Sophie Coyne [facility] Start: 11-24-2023 End: 11-24-[address] Rylan Garcia Work Phone: [facility] Work Phone: Start: 11-24-2023 End: 11-24-2023 ambulatory Kay Mahoneywolfgang Ervin Facility:[facility] Start: 11-06-2023 End: 11-06-[address] Rylan Garcia Work Phone: [facility] Work Phone: Start: 11-06-2023 End: 11-06-[address] Rylan Garcia Work Phone: [facility] Work Phone: Start: 11-06-2023 End: 11-06-2023 ambulatory Faina Mcclure Facility:[facility] Start: 10-27-2023 End: 10-27-[address] Rylan Garcia Work Phone: [facility] Work Phone: Start: 10-27-2023 End: 10-27-[address] [facility] Work [facility]: Start: 10-27-2023 End: 10-27-[address] Rylan Garcia Work Phone: [facility] Work Phone: Start: 10-27-2023 End: 10-27-2023 [place] [facility] [place] Start: 10-27-2023 End: 10-27-2023 [place] [facility] [place] Start: 07-22-2023 End: 07-22-[address] Rylan Garcia Work Phone: [facility] Work Phone: Start: 07-22-2023 End: 07-22-2023 ambulatory Taurus Thomas Facility:[facility] Start: 12-27-2021 End: 12-27-[address] [facility] Start: 12-27-2021 End: 12-27-[address] Rylan Garcia Work Phone: [facility] Start: 11-30-2021 End: 11-30-[address] Rylan Garcia Work Phone: [facility] Start: 11-21-2021 End: 11-21-[address] Rylan Garcia Work Phone: [facility] Start: 11-18-2021 Non-patient / Non-visit Dr. Rylan Garcia Work Phone: [facility] Start: 11-17-2021 Non-patient / Non-visit Dr. Rylan Garcia Work Phone: [facility] Start: 11-16-2021 Non-patient / Non-visit Dr. Rylan Garcia Work Phone: [facility] Start: 11-15-2021 Non-patient / Non-visit Dr. Rylan Garcia Work Phone: [facility] Start: 11-15-2021 End: 11-18-2021 Evaluation and management of inpatient Dr. Rylan Garcia Work Phone: [facility] Start: 11-12-2021 End: 11-12-[address] Rylan Garcia Work Phone: [facility] Start: 11-05-2021 End: 11-05-[address] Rylan Garcia Work Phone: [facility] Start: 10-29-2021 End: 10-29-[address] Rylan Garcia Work Phone: [facility] Start: 10-22-2021 End: 10-22-[address] Rylan Garcia Work Phone: [facility] Start: 10-15-2021 End: 10-15-[address] Rylan Garcia Work Phone: [facility], Specimen Start: 10-15-2021 End: 10-15-[address] Rylan Garcia Work Phone: [facility] Start: 09-29-2021 End: 09-29-[address] Rylan Garcia Work Phone: [facility] Start: 09-27-[address] Rylan Garcia Work Phone: [facility] Start: 09-17-2021 End: 09-17-[address] Rylan Garcia Work Phone: [facility] Procedures Date Procedure Procedure Detail Performing Clinician Start: 01-12-[address] Rylan Garcia Work Phone: Start: 10-27-[address] Vivi Garcia Work Phone: Start: 11-15-2021 SARS-CoV-2 Antigen (Rapid) Dr. Rylan Garcia Work Phone: Start: 10-15-2021 Group B Streptococcu s Culture Dr. Rylan Garcia Work Phone: Start: 09-27-2021 Ultrasound scan for growth Dr. Rylan Garcia Work Phone: H/O: section Hx of cesa rean section Dr. Rylan Garcia Work Phone: Plan of Treatment Date Care Activity Detail Author CBC W Auto Different ial panel - Blood [facility] Hemoglobin A1c/Hemog lobin.total in Blood [facility] Hepatitis B surface antigen measurement [facility] Hepatitis C antibody measurement [facility] HIV 1+2 Ab+HIV1 p24 Ag [Presence] in Serum or Plasma by Immunoassay [facility] spital Patient Education After a [facility] Work Phone: Patient referral [facility] Work Phone: Rubella IgG measurement [facility] Treponema sp Ab [Pre sence] in Serum [facility] Immunizations Immunization Date Immunization Notes Care Provider Fa mick 07-22-2023 influenza, injectabl e, quadrivalent, preservative free Dr. Rylan Garcia Work Phone: [facility] 07-16-2022 influenza, injectabl e, quadrivalent, preservative free Dr. Rylan Garcia Work Phone: [facility] 08-06-2021 tetanus toxoid, redu kandy diphtheria toxoid, and acellular pertussis vaccine, adsorbed Dr. Rylan Garcia Work Phone: [facility] 08-06-2021 diphtheria, tetanus toxoids and acellular pertussis vaccine, unspecified formulation Dr. Rylan Garcia Work Phone: [facility] Work Phone: 07-21-2020 Flucelvax Quad (PF) (flu vac qs 2020(4 yr up)CD(PF)) 60 mcg ([address] Rylan Garcia Work Phone: [facility] Work Phone: 07-21-2020 influenza, injectable,quadrivalent , preservative free, pediatric Dr. Rylan Garcia Work Phone: [facility] Payers Date Payer Category Payer Private Health Insurance [id number] 2023 Self-pay [id number] 2023 Unknown [id number] 2023 Self-pay [id number] 2023 Self-pay [id number] 2023 Unknown [id number] 1992 Unknown [id number] Private Health Insurance [id number] Unknown SELF PAY INSURANCE [id number] Unknown [id number] Unknown [id number] .0.1.928306.3.579.2.462 Unknown [id number] .0.1.793605.3.579.2.462 Unknown [id number] 2.16.840.1.570651.3.579.2.462 Unknown [id number] 2.840.1.390120.3.579.2.462 Unknown [id number] 2.16.840.1.143844.3.579.2.462 Unknown [id number] 2..840.1.275827.3.579.2.462 Unknown [id number] 2.840.1.615383.3.579.2.462 Unknown [id number] .840.1.968088.3.579.2.462 Unknown [id number] 2.840.1.799349.3.579.2.462 Unknown [id number] 2.840.1.690613.3.579.2.462 Unknown [id number] 2.840.1.329779.3.579.2.462 Unknown [id number] .840.1.975314.3.579.2.462 Unknown [id number] 2.840.1.599748.3.579.2.462 Unknown [id number] 2.840.1.787011.3.579.2.462 Unknown [id number] 2.840.1.578832.3.579.2.462 Unknown [id number] .840.1.878080.3.579.2.462 Unknown [id number] .840.1.898205.3.579.2.462 Unknown [id number] 2.840.1.516628.3.579.2.462 Unknown [id number] 2.840.1.273277.3.579.2.462 Unknown [id number] 2.840.1.271982.3.579.2.462 Unknown [id number] .840.1.651104.3.579.2.462 Unknown [id number] 2.16.840.1.247359.3.579.2.462 Unknown [id number] 2.16.840.1.565954.3.579.2.462 Social History Date Type Detail Facility Start: 12-27-2021 End: 12-22-2023 Tobacco smoking status NHIS Unknown if ever smoked [facility] Start: 1990 Sex Assigned At Female W [facility] Functional Status Date Assessment Result Facility 11-17-2021 Functional status Activity Ability Post O p [facility] Work Phone: Mental Status Date Assessment Result Facility 11-18-2021 Cognitive function Level Of Cons ciousness Awake;Alert;Appropriate;Follow s Commands [facility] Work Phone: Clinical Note 05-27-2024 Note Date & Type Note Facility 05-27-2024 Note [facility] Medical Records Department [address] [place] [address] History Physical Exam 05/27/24726 MR#: [id number] Acct: [id number] Name: MYLES MCCANN Rep #: [id number] : 1990 33 From: Adry Ponce MD PCP: Dr. 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: No Is patient in pain?: No Allergies No Known Allergies Allergy (Verified 05/24/24 08:58) Medications ???Medication ???Instructions ???Recorded ???Confirmed ???Type multivitamin no.47-iron fum 27 cap PO 10/24/23 05/24/24 History mg-folate no.1 1 mg-dha 300 mg capsule (PNV-DHA) promethazine 12.5 mg tablet 12.5 mg PO Q6H PRN nausea and 11/15/23 05/24/24 Rx vomiting #60 tabs Last Menstrual Period: 08/27/23 Zika: Zika virus screening: Negative : No Have you fallen in the past year?: No PFSH PFSH Medical History Abnormal glucose affecting delivery delivered Headache Surgical History [place] teeth extracted Previous back surgery Family History Grandfather CVA (cerebral vascular accident) Social History adopted: No household members: spouse and children number of children: 1 current occupational status: employed current occupation: [employer] pets and animals: Yes pets and animals: dog(s) history of recent travel: No sexually active: Yes Smoking Status: Never smoker alcohol intake: current details: not while substance use type: does not use well-balanced diet: daily or most days caffeine: No eating out: 1-3 times/week during the past year weight has: remained stable what type of physical activity do you participate in: walking frequency: 3-4 times per week duration: 15-30 minutes/day keyanna/zoroastrian: None seatbelt use: always do you feel safe at home: Yes 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 Date Name GA/Weeks Outcome Route Bth Weight Infant Gen Labor Lgth Anesthesia Del Locatn Provider FOB 11/16/21 Diane 41 live - full term C-sectio n Female [facility] Delivery Date: 11/16/21 Last Updated by: Sarah Valero [facility] FTP 6cm CPD 41wk IOL HPI 39 WK OB *SM/JV Details: MYLES MCCANN is a 33 year old who presents for RLTCS and BS declines TOLAC, desires sterilization. OB Visit CELY Calculator Estimated Delivery Date Method Current WG Current Estimate 06/02/24 LMP (Certain) 38w 5d Expected Delivery Route/Plan plans repeat c/s Specific Issue/Plans Covid status: [] Flu vaccine: [] Tdap vaccine: given Rhogam: [na LARC form signed: declined movement and labor precautions reviewed. Problem list reviewed and updated with the most current plan of care details and appropriate orders placed. Relevant counseling for the gestational age provided. Continue routine care and follow up unless otherwise noted in visit notes/problem list details Initial Weight: 190 lb Date -???-???-???-???-???-???-???-???-???-???- ???-???- EGA Weight BP Urine Prot -???-???-???-???-???-???-???-???-???-???- ???-???- Glucose FHR FuHt Pres Dilation -???-???-???-???-???-???-???-???-???-???- ???-???- Effaced St Visit Note 10/27/23-???-???-???-???-???-???-???-???- ???-???-???-???- 8w 5d 190 lb(+0 oz) 129/84 -???-???-???-???-???-???-???-???-???-???- ???-???- -???-???-???-???-???-???-???-???-???-???- ???-???- Lc- CRL 18.8 con with LMP. desires nipt. 11/24/23-???-???-???-???-???-???-???-???- ???-???-???-???- 12w 5d 187 lb 8 oz(-2 lb 8 oz) 128/84 Negative -???-???-???-???-???-???-???-???-???-???- ???-???- Negative -???-???-???-???-???-???-???-???-???-???- ???-???- JV- no lof, vaginal bleeding, or cramping. 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 (has a girl at home) planning rpt section with SM. 12/22/23-???-???-???-???-???-???-???-???- ???-???-???-???- 16w 5d 193 lb 2 oz(+3 lb 2 oz) 124/82 Negative -???-???-???-???-???-???-???-???-???-???- ???-???- Negative 150 -???-???-???-???-???-???-???-???-???-???- ???-???- kw-no vb/cramping. possible flutters. anatomy scan scheduled. 01/23/24-???-???-???-?? (more content not included)... [facility] Clinical Note 12-27-2021 Note Date & Type Note Facility 12-27-2021 Note [facility] Work Phone: Pap Smear Specimen Adequacy December 27, 2021 4:46pm Comment Satisfactory for evaluation. Endocervical and/or squamous metaplasticcells (endocervical component) are present. Comment on above: Satisfactory for amandeep luation. Endocervical and/or squamous metaplasticcells (endocervical component) are present. Clinical Note 12-27-2021 Note Date & Type Note Facility 12-27-2021 Note [facility] Work Phone: Pap Smear QC Review December 27, 2021 4:46pm Comment Jennifer Simons, Supervisory Brass Pourer ([facility]) Comment on above: Jennifer Simons, Sup ervisory Brass Pourer ([facility]) Evaluation note Note Date & Type Note Facility Evaluation note Diagnosis Onset Date Hx of spinal fusion resolved resolved Supervision of normal first resolved Breech presentation resolved Hx of spinal fusion resolved resolved Supervision of normal first resolved Breech presentation resolved Hx of spinal fusion resolved resolved Supervision of normal first resolved Uterine size date discrepancy resolved Breech presentation resolved Hx of spinal fusion resolved resolved Supervision of normal first resolved Uterine size date discrepancy resolved Breech presentation resolved Hx of spinal fusion resolved resolved Supervision of normal first resolved Uterine size date discrepancy resolved Hx of spinal fusion resolved resolved Supervision of normal first resolved Uterine size date discrepancy resolved Hx of spinal fusion resolved resolved Supervision of normal first resolved Uterine size date discrepancy resolved delivery delivered resolved Encounter for induction of labor resolved Hx of spinal fusion resolved resolved Supervision of normal first resolved Uterine size date discrepancy resolved depression acute depression [facility] Work Phone: Evaluation note Note Date & Type Note Facility Evaluation note Diagnosis Onset Date Anxiety acute Hx of section acute Immunization due acute Migraine with aura acute depression acute acute Supervision of high-risk acute [facility] Work Phone: Evaluation note Note Date & Type Note Facility Evaluation note Diagnosis Onset Date Anxiety acute Hx of section acute Immunization due acute Migraine with aura acute depression acute acute Supervision of high-risk acute Anxiety acute Hx of section acute Immunization due acute Migraine with aura acute depression acute acute Supervision of high-risk acute Anxiety acute Hx of section acute Immunization due acute Migraine with aura acute depression acute acute Supervision of high-risk [facility] Work Phone: Chief Complaint and Reason for Visit Chief Complaint 32WK OB UTERINE DATE SIZE DESCREPENCY 34WK OB 36WK OB 37WK OB 38WK OB 39WK OB 40WK OB PRIMARY C SECTION INDUCTION INDUCTION PRIMARY C SECTION PRIMARY C SECTION first baby, inverted nipples,using shield 2 wk incision check 6 wk PP, declined IUD Reason for Visit Hx of spinal fusion Supervision of normal first Breech presentation Hx of spinal fusion Supervision of normal first Breech presentation Hx of spinal fusion Supervision of normal first Uterine size date discrepancy Breech presentation Hx of spinal fusion Supervision of normal first Uterine size date discrepancy Breech presentation Hx of spinal fusion Supervision of normal first Uterine size date discrepancy Hx of spinal fusion Supervision of normal first Uterine size date discrepancy Hx of spinal fusion Supervision of normal first Uterine size date discrepancy delivery delivered Encounter for induction of labor Hx of spinal fusion Supervision of normal first Uterine size date discrepancy depression depression Chief Complaint FLU SHOT New OB, LMP 08/31/23, CELY 06/06/24 Reason for Visit Anxiety Hx of section Immunization due Migraine with aura depression Supervision of high-risk Chief Complaint New OB, LMP 08/31/23 , CELY 06/06/24 12 WK OB 16 WK OB CERVICAL LENGTH Reason for Visit Anxiety Hx of section Immunization due Migraine with aura depression Supervision of high-risk Anxiety Hx of section Immunization due Migraine with aura depression Supervision of high-risk Anxiety Hx of section Immunization due Migraine with aura depression Supervision of high-risk Advance Directives No Advanced Directives Records Found Advance Directive Response Recorded Date/ Time Living Will No November 15, 8:29pm Power of Dermatology Procedural Physician No November 15, 2021 8:29pm Advance Directive Response Recorded Date/ Time Living Will No November 15 7:29pm Power of Dermatology Procedural Physician No November 15, 2021 7:29pm Summary Purpose Family History No Family History Records Found Additional Source Comments Goals (unrecognized section and content) Goals may be documented in a n alternate sectionGoals may be documented in an alternate sectionGoals may be documented in an alternate sectionGoals may be documented in an alternate section Care Teams (unrecognized sec tion and content) Team Status: Active Member Role Status Dates Dr. Rylan Garcia , DO Primary Care Provider A ctive Team Status: Inactive Member Role Status Dates Dr. Rylan Garcia DO Primary Care Provider, Referring Provider Active ADELINA Weber Attending Provider Active Team Status: Inactive Member Role Status Dates Dr. Rylan Garcia , DO Primary Care Provider, Referring Provider Active Faina Mcclure CNM Attending Provider Active Team Status: Inactive Member Role Status Dates Dr. Rylan Garcia , DO Primary Care Provider A ctive Faina Mcclure CNM Attending Provider, Referring Pr ovider Active Team Status: Inactive Member Role Status Dates Dr. Rylan Garcia , DO Primary Care Provider, Referring Provider Active Dr. Kay Khan , DO Attending Provider Activ e Team Status: Inactive Member Role Status Dates Dr. Rylan Garcia , DO Primary Care Provider, Referring Provider Active Sophie Coyne CNM Attending Provider Active Team Status: Inactive Member Role Status Dates Dr. Rylan Garcia , DO Primary Care Provider A ctive Dr. Kay Khan , DO Attending Provider, Refe rring Provider Active INFORMATION SOURCE (unrecogn ized section and content) DATE CREATED AUTHOR 07/09/2024 [facility] DATE CREATED AUTHOR AUTHOR'S ORGANIZ ATION 07/05/2025 [facility] FOR RECORDS PERTAINING TO PATIENTS WHO ARE OR HAVE BEEN ENROLLED IN A CHEMICAL DEPENDENCY/SUBSTANCEABUSE PROGRAM, SOME INFORMATION MAY BE OMITTED. This clinical summary was aggregated from multiple sources. Caution should be exercised in using it in the provision of clinical care. This summary normalizes information from multiple sources, and as a consequence, information in this document may materially change the coding, format and clinical context of patient data. In addition, data may be omitted in some cases. CLINICAL DECISIONS SHOULD BE BASED ON THE PRIMARY CLINICAL RECORDS. [employer] [facility]. provides no warranty or guarantee of the accuracy or completeness of information in this document.
[2025-09-06 08:09] LABS: HPV APTIMA, High Risk Negative (Negative)
== END | disposition home or self-care (01) ==
LOC: LABSPEC 16:22
PROVIDERS: PCP Family Medicine; Visit Provider Obstetrics & Gynecology
DX: Z12.4 Encounter for screening for malignant neoplasm of cervix (principal)
CPT/HCPCS: 87624; 88175; G0145